=== PATIENT | male | born 1945 | race Caucasian/White ===

== ENCOUNTER → 2017-11-15 04:21 | Outpatient (REF) | payer MEDICARE, MEDICAID, SELFPAY | LOC: LAB 04:21 | PROVIDERS: PCP Internal Medicine; Visit Provider Internal Medicine | DX: R05 Cough (principal); J02.9 Acute pharyngitis, unspecified | CPT/HCPCS: 87070; 87205 ==

== ENCOUNTER → 2017-11-18 07:49 | Outpatient (REF) | payer MEDICARE, MEDICAID, SELFPAY ==
[2017-11-18 08:54] LABS: Hematocrit 39.7 % (41-53); Hemoglobin 13.2 g/dL (13.5-17.5); Mean Corpuscular HGB Conc 33.2 % (30-36); Mean Corpuscular Hemoglobin 30.3 PG (26-34); Mean Corpuscular Volume 91.1 fL (80-100); Platelet Count 640 X10^3/uL (150-400); Red Blood Cell Count 4.35 X10^6/uL (4.5-5.9); Red Cell Distribution Width 14.6 % (11.6-14.8); White Blood Cell Count 12.4 X10^3/uL (4.5-11.0)
[2017-11-18 08:55] LABS: Add Manual Diff / Slide Review YES
[2017-11-18 08:58] LABS: Hemoglobin A1C% w Est Avg Glu 9.4 % (4.0-6.0)
[2017-11-18 09:03] LABS: Alanine Aminotransferase 28 IU/L (21-72); Albumin 3.4 g/dL (3.5-5.0); Alkaline Phosphatase 130 U/L (38-126); Aspartate Aminotransferase 19 IU/L (17-59); BUN Creatinine Ratio 22.2 (6-22); Bilirubin Total 0.4 mg/dL (0.2-1.3); Blood Urea Nitrogen 20 mg/dL (9-20); Carbon Dioxide 31 mmol/L (22-32); Chloride 101 mmol/L (98-107); Estimated Glomerular Filt Rate > 60.0 mL/min (>60); Globulin 3.4 g/dL (1.7-4.1); Glucose 169 mg/dL (80-110); HEMOLYSIS < 15 (0-50); Potassium 3.9 mmol/L (3.4-5.1); Sodium 141 mmol/L (137-145); Total Protein 6.8 g/dL (6.3-8.2)
[2017-11-18 09:16] LABS: Neutrophils Absolute Manual 2232 /uL (3000-5900); Total Cells Counted 100
[2017-11-18 09:19] LABS: Poikilocytosis 1+
== END ==
LOC: LAB 07:49
PROVIDERS: PCP Internal Medicine; Visit Provider Internal Medicine
DX: E11.9 Type 2 diabetes mellitus without complications (principal)
CPT/HCPCS: 36415; 80053; 83036; 85025

== ENCOUNTER → 2018-03-26 07:27 | Outpatient (REF) | payer MEDICARE, MEDICAID, SELFPAY ==
[2018-03-26 08:53] LABS: Basophils Percent Auto 1.7 % (0-2); Eosinophils Percent Auto 6.4 % (2-4); Hematocrit 40.6 % (41-53); Hemoglobin 13.2 g/dL (13.5-17.5); Lymphocytes Percent Auto 26.4 % (25-40); Mean Corpuscular HGB Conc 32.6 % (30-36); Mean Corpuscular Hemoglobin 29.6 PG (26-34); Mean Corpuscular Volume 90.9 fL (80-100); Monocytes Percent Auto 12.1 % (3-14); Neutrophils Absolute Auto 8800 /uL (3000-5900); Neutrophils Percent Auto 53.4 % (50-75); Platelet Count 504 X10^3/uL (150-400); Red Blood Cell Count 4.47 X10^6/uL (4.5-5.9); Red Cell Distribution Width 14.3 % (11.6-14.8); White Blood Cell Count 16.5 X10^3/uL (4.5-11.0)
[2018-03-26 08:54] LABS: Hemoglobin A1C% w Est Avg Glu 8.2 % (4.0-6.0)
[2018-03-26 09:04] LABS: Add Manual Diff / Slide Review SLIDE REVIEW
[2018-03-26 11:54] LABS: RBC Morphology Normal Morphology
[2018-03-26 12:05] LABS: Alanine Aminotransferase 29 IU/L (21-72); Albumin 3.6 g/dL (3.5-5.0); Albumin Globulin Ratio 1.2 (1.0-2.8); Alkaline Phosphatase 87 U/L (38-126); Aspartate Aminotransferase 20 IU/L (17-59); Bilirubin Total 0.2 mg/dL (0.2-1.3); Blood Urea Nitrogen 32 mg/dL (9-20); Calcium 9.6 mg/dL (8.4-10.2); Carbon Dioxide 29 mmol/L (22-32); Chloride 102 mmol/L (98-107); Cholesterol 151 mg/dL (140-199); Estimated Glomerular Filt Rate > 60.0 mL/min (>60); Glucose 206 mg/dL (80-110); HDL Cholesterol 28 mg/dL (40-60); HEMOLYSIS < 15 (0-50); LDL Cholesterol Calculated 92 mg/dL (<100); Sodium 143 mmol/L (137-145); Total Protein 6.6 g/dL (6.3-8.2); Triglycerides 154 mg/dL (35-150)
== END ==
LOC: LAB 07:27
PROVIDERS: PCP Internal Medicine; Visit Provider Nurse Practitioner Family
DX: E11.9 Type 2 diabetes mellitus without complications (principal); I50.9 Heart failure, unspecified; E78.5 Hyperlipidemia, unspecified
CPT/HCPCS: 36415; 80053; 80061; 83036; 85025

== ENCOUNTER → 2018-04-02 07:22 | Outpatient (REF) | payer MEDICARE, MEDICAID, SELFPAY ==
[2018-04-02 08:13] LABS: Add Manual Diff / Slide Review NO; Basophils Percent Auto 1.6 % (0-2); Eosinophils Percent Auto 9.2 % (2-4); Hematocrit 37.6 % (41-53); Hemoglobin 12.6 g/dL (13.5-17.5); Lymphocytes Percent Auto 29.5 % (25-40); Mean Corpuscular HGB Conc 33.5 % (30-36); Mean Corpuscular Hemoglobin 30.2 PG (26-34); Mean Corpuscular Volume 90.1 fL (80-100); Monocytes Percent Auto 12.5 % (3-14); Neutrophils Absolute Auto 7500 /uL (3000-5900); Neutrophils Percent Auto 47.2 % (50-75); Platelet Count 442 X10^3/uL (150-400); Red Blood Cell Count 4.18 X10^6/uL (4.5-5.9); Red Cell Distribution Width 14.6 % (11.6-14.8)
== END ==
LOC: LAB 07:22
PROVIDERS: PCP Internal Medicine; Visit Provider Internal Medicine
DX: L03.90 Cellulitis, unspecified (principal)
CPT/HCPCS: 36415; 85025

== ENCOUNTER 2018-06-17 20:40 | Emergency (ER) | payer MEDICARE, MEDICAID, SELFPAY ==
[2018-06-17 20:45] VITALS: BP 109/69; PULSE 120; RESP 18; O2SAT 93
[2018-06-17 21:00] VITALS: PULSE 120; RESP 18; O2SAT 93
--- NOTE | 2018-06-17 21:22 | ED.DENTAL ---
HPI - Dental/Oral General Chief complaint: Dental/Oral Stated complaint: Uncontrolled bleeding s/p tooth extraction Time Seen by Provider: 06/17/18 20:41 Source: patient and EMS Mode of arrival: EMS Limitations: no limitations History of Present Illness HPI Narrative: 72-year-old male with history of prior stroke, diabetes, hypertension presents from a local halfway facility with uncontrolled bleeding after a dental procedure today. The patient takes Plavix and aspirin and had a dental extraction today. Over the course of the day he has had persistent oozing bleeding from multiple occasions in his mouth. Denies any pain and has no dizziness, weakness or lightheadedness. He has had no vomiting fever or chills. He denies chest pain or shortness of breath. Onset (ago): hour(s) Duration: constant Severity: moderate Exacerbating factors: nothing Treatment prior to arrival: none Related Data Home Medications Medication Instructions Recorded Confirmed Lactobacillus acidophilus #0 05/04/16 aspirin 81 mg PO QDAY #0 05/04/16 bisacodyl [Correctol] 5 mg PO #0 05/04/16 bumetanide 1.5 mg #0 05/04/16 clopidogrel 75 mg PO QDAY #0 05/04/16 hydrocodone-acetaminophen #0 05/04/16 insulin aspart U-100 [Novolog 100 u #0 05/04/16 PenFill U-100 Insulin] insulin detemir U-100 [Levemir 93 unit #0 05/04/16 U-100 Insulin] loratadine [Claritin] 5 mg PO #0 05/04/16 losartan [Cozaar] #0 05/04/16 magnesium hydroxide [Milk Of 30 ml PO #0 05/04/16 Magnesia Concentrated] polyethylene glycol 3350 [Miralax] #0 05/04/16 polyvinyl alcohol-povidone #0 05/04/16 [Artificial Tears(pvalch-povid)] potassium chloride [Klor-Con 8] 10 #0 05/04/16 Allergies Allergy/AdvReac Type Severity Reaction Status Date / Time ciprofloxacin [From CIPRO] Allergy Unknown Unverified 08/27/17 12:29 doxylamine [DOXYLAMINE] Allergy Unknown Unverified 08/27/17 12:29 Sulfa (Sulfonamide Allergy Unknown Unverified 08/27/17 12:29 Antibiotics) [SULFA (SULFONAMIDE ANTIBIOTICS)] vancomycin [From VANCOCIN] Allergy Unknown Unverified 08/27/17 12:29 Review of Systems Constitutional Denies chills, Denies fever(s), Denies lethargy and Denies weakness Eyes Denies change in vision, Denies eye discharge, Denies irritation and Denies loss of vision ENT Ears, Nose, Mouth, and Throat: Denies change in voice, Denies neck pain and Denies sore throat Comments: The more we Cardiovascular Denies chest pain, Denies irregular heart rhythm, Denies lightheadedness, Denies palpitations, Denies dyspnea, Denies dyspnea on exertion and Denies orthopnea Respiratory Denies cough, Denies dyspnea, Denies dyspnea on exertion and Denies wheezing Gastrointestinal Gastrointestinal: Denies abdominal pain, Denies change in bowel habits, Denies diarrhea, Denies nausea and Denies vomiting Genitourinary Denies hematuria, Denies flank pain, Denies urinary incontinence and Denies urinary urgency Musculoskeletal Denies neck pain Integumentary/Breasts Denies pruritus, Denies erythema, Denies rash and Denies wounds Neurologic Denies confusion, Denies loss of vision and Denies weakness Psychiatric Denies anxiety, Denies confusion, Denies depression, Denies homicidal ideation and Denies suicidal ideation Endocrine Denies palpitations Hematologic/Lymphatic Reports easy bleeding and Denies easy bruising Allergic/Immunologic Denies wheezing Exam Narrative Exam Narrative: GEN: AOx3 and in mild distress DENTAL: multiple recent extractions. Fresh clots at multiple locations on R side of mouth. Active bleeding at two sites, one at #28 and #4. EYES: Pupils are equal, round, and reactive to light and accommodation. Extraoccular muscles are intact bilaterally. There is no subconjunctival hemorrhage or exudate. CHEST: Lungs are clear to auscultation bilaterally and free of wheezes, rales, or rhonchi. Heart rate is regular rhythm, there are no murmurs, clicks, rubs, or gallops. There is no chest wall tenderness. ABD: Abdomen is soft and nontender. There is no guarding or rebound. Bowel sounds are normal in all 4 quadrants. There is no mass or organomegaly. EXT: Full painless ROM of all extremities with no loss of sensation or strength. SKIN: Warm, pink, and dry. No erythema or rash Initial Vital Signs Initial Vital Signs: Vital Signs Pulse Rate 120 H 06/17/18 20:45 Respiratory Rate 18 06/17/18 20:45 Blood Pressure 109/69 06/17/18 20:45 Pulse Oximetry 93 06/17/18 20:45 [place] [facility] [place] Procedure: Bleeding Control Side (if applicable): right Location: oral Time out performed: Yes Technique/Description of procedure performed: Both bleeding sites, 20. 8 and number for anesthetized with lidocaine with epi, 3 males per site. This is followed by injections of DEXA. The lower bleeding site was controlled with 1 loose suture and surgeon foam as well as Surgicel. the suture is 1 simple interrupted 5 0 Vicryl. minimal suctioning with Grande tip performed. Patient tolerated procedure quite well Patient tolerated procedure: Well Complications: none Course Reevaluation(s) Reevaluation #1: patient observed for over 1 hr after procedure and no persistent bleeding is noted Vital Signs - 8 hr 06/17/18 20:45 06/17/18 21:00 06/17/18 21:50 Pulse Rate 120 H 120 H 108 H Respiratory Rate 18 18 18 Blood Pressure [Left Arm] 109/69 111/70 Pulse Oximetry 93 93 95 Discharge Plan Departure Patient Disposition: Home Clinical Impression: Surgical wound hemorrhage after dental procedure Instructions: DI for Post-Surgical Bleeding Activity Restrictions/Additional Instructions: *You have been diagnosed with [ postsurgical dental bleeding ] *What to do: * continue to take medications as directed *Follow up with your dentist/oral surgeon as soon as possible. call for an appointment. Let them know you were seen in the Emergency Department and that we ask that you be seen in follow up *Return to ER if you should have any new, worsening or concerning symptoms Prescriptions: No Action insulin aspart U-100 [Novolog PenFill U-100 Insulin] 100 UNIT/1 ML cartridge 100 u Qty: 0 RF: 0 loratadine [Claritin] 5 MG/5 ML solution 5 mg PO Qty: 0 RF: 0 aspirin 81 MG tablet,delayed release (DR/EC) 81 mg PO QDAY Qty: 0 RF: 0 polyethylene glycol 3350 [Miralax] 119 GM powder Qty: 0 RF: 0 losartan [Cozaar] 100 MG tablet Qty: 0 RF: 0 insulin detemir U-100 [Levemir U-100 Insulin] 100 UNIT/1 ML solution 93 unit Qty: 0 RF: 0 clopidogrel 75 MG tablet 75 mg PO QDAY Qty: 0 RF: 0 potassium chloride [Klor-Con 8] 8 MEQ tablet extended release 10 Qty: 0 RF: 0 bisacodyl [Correctol] 5 MG tablet 5 mg PO Qty: 0 RF: 0 magnesium hydroxide [Milk Of Magnesia Concentrated] 2,400 MG/10 ML suspension 30 ml PO Qty: 0 RF: 0 hydrocodone-acetaminophen 5 MG/325 MG tablet Qty: 0 RF: 0 Lactobacillus acidophilus 1 EACH capsule Qty: 0 RF: 0 polyvinyl alcohol-povidone [Artificial Tears(pvalch-povid)] 15 ML drops Qty: 0 RF: 0 bumetanide 1 MG tablet 1.5 mg Qty: 0 RF: 0
[2018-06-17 21:50] VITALS: BP 111/70; PULSE 108; RESP 18; O2SAT 95
--- NOTE | 2018-06-17 22:48 | PC.NURSE ---
No bleeding noted in moth now.
== END 2018-06-17 22:48 | disposition home or self-care (01) ==
PROVIDERS: Emergency Provider Emergency Medicine; Family Provider Internal Medicine; PCP Internal Medicine
DX: K91.840 Postprocedural hemorrhage of a digestive system organ or structure following a digestive system procedure (principal)
CPT/HCPCS: 99282

== ENCOUNTER → 2018-06-22 14:04 | Outpatient (REF) | payer MEDICARE, MEDICAID, SELFPAY ==
[2018-06-22 14:15] LABS: Hematocrit 37.1 % (41-53); Hemoglobin 12.1 g/dL (13.5-17.5); Mean Corpuscular HGB Conc 32.6 % (30-36); Mean Corpuscular Hemoglobin 29.9 PG (26-34); Mean Corpuscular Volume 91.5 fL (80-100); Platelet Count 449 X10^3/uL (150-400); Red Blood Cell Count 4.06 X10^6/uL (4.5-5.9); Red Cell Distribution Width 14.6 % (11.6-14.8); White Blood Cell Count 11.5 X10^3/uL (4.5-11.0)
[2018-06-22 14:16] LABS: Ammonia (NH3) < 9.0 umol/L (9-30)
[2018-06-22 14:17] LABS: Add Manual Diff / Slide Review YES
[2018-06-22 14:18] LABS: Alanine Aminotransferase 39 IU/L (21-72); Albumin 3.5 g/dL (3.5-5.0); Albumin Globulin Ratio 1.3 (1.0-2.8); Alkaline Phosphatase 82 U/L (38-126); Aspartate Aminotransferase 31 IU/L (17-59); Bilirubin Total 0.2 mg/dL (0.2-1.3); Blood Urea Nitrogen 36 mg/dL (9-20); Calcium 9.4 mg/dL (8.4-10.2); Carbon Dioxide 26 mmol/L (22-32); Chloride 97 mmol/L (98-107); Estimated Glomerular Filt Rate 59.2 mL/min (>60); Globulin 2.7 g/dL (1.7-4.1); Glucose 258 mg/dL (80-110); HEMOLYSIS < 15 (0-50); Potassium 5.2 mmol/L (3.4-5.1); Sodium 136 mmol/L (137-145); Total Protein 6.2 g/dL (6.3-8.2)
[2018-06-22 15:13] LABS: Neutrophils Absolute Manual 4255 /uL (3000-5900); Total Cells Counted 100
[2018-06-22 15:16] LABS: Anisocytosis 1+; Poikilocytosis 1+
== END ==
LOC: LAB 14:04
PROVIDERS: Family Provider Internal Medicine; PCP Internal Medicine; Visit Provider Registered Nurse
DX: R03.0 Elevated blood-pressure reading, without diagnosis of hypertension (principal); E11.9 Type 2 diabetes mellitus without complications; R40.4 Transient alteration of awareness
CPT/HCPCS: 80053; 82140; 85025

== ENCOUNTER → 2018-06-23 16:56 | Outpatient (REF) | payer MEDICARE, MEDICAID, SELFPAY ==
[2018-06-23 17:42] LABS: B Type Natriuretic Peptide < 100 (<100)
== END ==
LOC: LAB 16:56
PROVIDERS: Family Provider Internal Medicine; PCP Internal Medicine; Visit Provider Registered Nurse
DX: I50.20 Unspecified systolic (congestive) heart failure (principal)
CPT/HCPCS: 83880

== ENCOUNTER → 2018-06-25 07:06 | Outpatient (REF) | payer MEDICARE, MEDICAID, SELFPAY ==
[2018-06-25 08:41] LABS: Hemoglobin A1C% w Est Avg Glu 8.2 % (4.0-6.0)
== END ==
LOC: LAB 07:06
PROVIDERS: Family Provider Internal Medicine; PCP Internal Medicine; Visit Provider Internal Medicine
DX: E11.9 Type 2 diabetes mellitus without complications (principal)
CPT/HCPCS: 36415; 83036

== ENCOUNTER → 2018-06-30 10:29 | Outpatient (REF) | payer MEDICARE, MEDICAID, SELFPAY ==
[2018-06-30 11:35] LABS: Blood Urea Nitrogen 20 mg/dL (9-20); Calcium 9.1 mg/dL (8.4-10.2); Carbon Dioxide 28 mmol/L (22-32); Chloride 97 mmol/L (98-107); Estimated Glomerular Filt Rate > 60.0 mL/min (>60); Glucose 246 mg/dL (80-110); HEMOLYSIS < 15 (0-50); Potassium 4.1 mmol/L (3.4-5.1); Sodium 136 mmol/L (137-145)
== END ==
LOC: LAB 10:29
PROVIDERS: Family Provider Internal Medicine; PCP Internal Medicine; Visit Provider Nurse Practitioner Family
DX: E87.5 Hyperkalemia (principal)
CPT/HCPCS: 36415; 80048

== ENCOUNTER → 2018-07-23 07:52 | Outpatient (REF) | payer MEDICARE, MEDICAID, SELFPAY ==
[2018-07-23 08:34] LABS: Basophils Absolute Auto 200 /uL (0-100); Basophils Percent Auto 1.6 % (0-2); Eosinophils Absolute Auto 1100 /uL (0-450); Eosinophils Percent Auto 8.5 % (2-4); Hematocrit 39.5 % (41-53); Hemoglobin 12.7 g/dL (13.5-17.5); Lymphocytes Absolute Auto 5300 /uL (1100-4500); Lymphocytes Percent Auto 39.1 % (25-40); Mean Corpuscular Volume 90.5 fL (80-100); Monocytes Absolute Auto 1500 /uL (0-900); Monocytes Percent Auto 11.1 % (3-14); Neutrophils Absolute Auto 5400 /uL (1500-7000); Neutrophils Percent Auto 39.7 % (50-75); Platelet Count 532 X10^3/uL (150-400); Red Blood Cell Count 4.37 X10^6/uL (4.5-5.9); Red Cell Distribution Width 14.1 % (11.6-14.8); White Blood Cell Count 13.5 X10^3/uL (4.5-11.0)
[2018-07-23 08:45] LABS: Add Manual Diff / Slide Review SLIDE REVIEW
[2018-07-23 08:51] LABS: BUN Creatinine Ratio 23.8 (6-22); Blood Urea Nitrogen 19 mg/dL (9-20); Calcium 9.6 mg/dL (8.4-10.2); Carbon Dioxide 31 mmol/L (22-32); Chloride 98 mmol/L (98-107); Estimated Glomerular Filt Rate > 60.0 mL/min (>60); Glucose 132 mg/dL (80-110); HEMOLYSIS < 15 (0-50); Potassium 3.5 mmol/L (3.4-5.1); Sodium 141 mmol/L (137-145)
[2018-07-23 09:36] LABS: Platelet Estimate Increased on smear
== END ==
LOC: LAB 07:52
PROVIDERS: Family Provider Internal Medicine; PCP Internal Medicine; Visit Provider Internal Medicine
DX: N17.9 Acute kidney failure, unspecified (principal); D72.829 Elevated white blood cell count, unspecified
CPT/HCPCS: 36415; 80048; 85025

== ENCOUNTER → 2018-07-30 07:13 | Outpatient (REF) | payer MEDICARE, MEDICAID, SELFPAY ==
[2018-07-30 08:05] LABS: Add Manual Diff / Slide Review NO; Basophils Absolute Auto 300 /uL (0-100); Basophils Percent Auto 2.1 % (0-2); Eosinophils Absolute Auto 1100 /uL (0-450); Eosinophils Percent Auto 7.8 % (2-4); Lymphocytes Absolute Auto 4900 /uL (1100-4500); Lymphocytes Percent Auto 34.9 % (25-40); Mean Corpuscular HGB Conc 32.4 % (30-36); Mean Corpuscular Hemoglobin 28.4 PG (26-34); Mean Corpuscular Volume 87.8 fL (80-100); Monocytes Absolute Auto 1500 /uL (0-900); Monocytes Percent Auto 10.8 % (3-14); Neutrophils Absolute Auto 6300 /uL (1500-7000); Neutrophils Percent Auto 44.4 % (50-75); Red Blood Cell Count 4.21 X10^6/uL (4.5-5.9); Red Cell Distribution Width 14.5 % (11.6-14.8); White Blood Cell Count 14.1 X10^3/uL (4.5-11.0)
[2018-07-30 08:38] LABS: Platelet Count 620 X10^3/uL (150-400)
[2018-07-30 08:41] LABS: Blood Urea Nitrogen 20 mg/dL (9-20); Calcium 9.1 mg/dL (8.4-10.2); Carbon Dioxide 31 mmol/L (22-32); Chloride 102 mmol/L (98-107); Estimated Glomerular Filt Rate > 60.0 mL/min (>60); Glucose 93 mg/dL (80-110); HEMOLYSIS 31 (0-50); Potassium 3.7 mmol/L (3.4-5.1); Sodium 142 mmol/L (137-145)
== END ==
LOC: LAB 07:13
PROVIDERS: Family Provider Internal Medicine; PCP Internal Medicine; Visit Provider Internal Medicine
DX: E11.9 Type 2 diabetes mellitus without complications (principal); D72.829 Elevated white blood cell count, unspecified; E87.5 Hyperkalemia
CPT/HCPCS: 36415; 80048; 85025

== ENCOUNTER → 2018-09-01 08:29 | Outpatient (REF) | payer MEDICARE, MEDICAID, SELFPAY ==
[2018-09-01 09:09] LABS: Add Manual Diff / Slide Review NO; Basophils Absolute Auto 200 /uL (0-100); Basophils Percent Auto 1.2 % (0-2); Eosinophils Absolute Auto 1200 /uL (0-450); Eosinophils Percent Auto 7.6 % (2-4); Hemoglobin 12.4 g/dL (13.5-17.5); Lymphocytes Absolute Auto 4200 /uL (1100-4500); Lymphocytes Percent Auto 26.4 % (25-40); Mean Corpuscular HGB Conc 31.8 % (30-36); Mean Corpuscular Hemoglobin 27.3 PG (26-34); Mean Corpuscular Volume 85.8 fL (80-100); Monocytes Absolute Auto 1700 /uL (0-900); Monocytes Percent Auto 10.6 % (3-14); Neutrophils Absolute Auto 8700 /uL (1500-7000); Neutrophils Percent Auto 54.2 % (50-75); Platelet Count 610 X10^3/uL (150-400); Red Blood Cell Count 4.54 X10^6/uL (4.5-5.9); Red Cell Distribution Width 14.9 % (11.6-14.8)
[2018-09-01 09:10] LABS: Blood Urea Nitrogen 18 mg/dL (9-20); Calcium 9.8 mg/dL (8.4-10.2); Carbon Dioxide 30 mmol/L (22-32); Chloride 100 mmol/L (98-107); Estimated Glomerular Filt Rate > 60.0 mL/min (>60); Glucose 186 mg/dL (80-110); HEMOLYSIS < 15 (0-50); Potassium 3.3 mmol/L (3.4-5.1); Sodium 140 mmol/L (137-145)
== END ==
LOC: LAB 08:29
PROVIDERS: Nurse Practitioner Family; Family Provider Internal Medicine; PCP Internal Medicine; Visit Provider Registered Nurse
DX: E11.9 Type 2 diabetes mellitus without complications (principal); D72.829 Elevated white blood cell count, unspecified
CPT/HCPCS: 36415; 80048; 85025

== ENCOUNTER → 2018-09-04 16:53 | Outpatient (REF) | payer MEDICARE, MEDICAID, SELFPAY ==
[2018-09-04 17:00] LABS: HEMOLYSIS < 15 (0-50); Potassium 3.2 mmol/L (3.4-5.1)
== END ==
LOC: LAB 16:53
PROVIDERS: Family Provider Internal Medicine; PCP Internal Medicine; Visit Provider Registered Nurse
DX: E87.6 Hypokalemia (principal)
CPT/HCPCS: 84132

== ENCOUNTER → 2018-09-24 06:58 | Outpatient (ROUT) | payer MEDICARE, MEDICAID, SELFPAY ==
[2018-09-24 08:13] LABS: HEMOLYSIS < 15 (0-50); Potassium 3.5 mmol/L (3.4-5.1)
== END ==
PROVIDERS: Family Provider Internal Medicine; PCP Internal Medicine; Visit Provider Nurse Practitioner Family
DX: E87.6 Hypokalemia (principal)
CPT/HCPCS: 36415; 84132

== ENCOUNTER → 2018-10-01 07:10 | Outpatient (ROUT) | payer MEDICARE, MEDICAID, SELFPAY ==
[2018-10-01 08:21] LABS: Add Manual Diff / Slide Review NO; BUN Creatinine Ratio 21.1 (6-22); Basophils Absolute Auto 300 /uL (0-100); Basophils Percent Auto 1.7 % (0-2); Blood Urea Nitrogen 19 mg/dL (9-20); Calcium 9.7 mg/dL (8.4-10.2); Carbon Dioxide 31 mmol/L (22-32); Chloride 98 mmol/L (98-107); Eosinophils Absolute Auto 1000 /uL (0-450); Eosinophils Percent Auto 6.5 % (2-4); Estimated Glomerular Filt Rate > 60.0 mL/min (>60); Glucose 259 mg/dL (80-110); HEMOLYSIS < 15 (0-50); Hematocrit 38.4 % (41-53); Hemoglobin 12.4 g/dL (13.5-17.5); Lymphocytes Absolute Auto 4100 /uL (1100-4500); Lymphocytes Percent Auto 28.3 % (25-40); Mean Corpuscular HGB Conc 32.2 % (30-36); Mean Corpuscular Hemoglobin 26.8 PG (26-34); Mean Corpuscular Volume 83.2 fL (80-100); Monocytes Absolute Auto 1400 /uL (0-900); Monocytes Percent Auto 9.8 % (3-14); Neutrophils Absolute Auto 7900 /uL (1500-7000); Neutrophils Percent Auto 53.7 % (50-75); Platelet Count 579 X10^3/uL (150-400); Potassium 3.3 mmol/L (3.4-5.1); Red Blood Cell Count 4.62 X10^6/uL (4.5-5.9); Red Cell Distribution Width 16.1 % (11.6-14.8); Sodium 140 mmol/L (137-145); White Blood Cell Count 14.6 X10^3/uL (4.5-11.0)
== END ==
PROVIDERS: Family Provider Internal Medicine; PCP Internal Medicine; Visit Provider Nurse Practitioner Family
DX: D72.829 Elevated white blood cell count, unspecified (principal); E11.9 Type 2 diabetes mellitus without complications
CPT/HCPCS: 36415; 80048; 85025

== ENCOUNTER → 2018-10-08 07:20 | Outpatient (ROUT) | payer MEDICARE, MEDICAID, SELFPAY ==
[2018-10-08 09:07] LABS: HEMOLYSIS < 15 (0-50); Potassium 3.8 mmol/L (3.4-5.1)
== END ==
PROVIDERS: Family Provider Internal Medicine; PCP Internal Medicine; Visit Provider Nurse Practitioner Family
DX: E87.6 Hypokalemia (principal)
CPT/HCPCS: 36415; 84132

== ENCOUNTER → 2018-11-03 10:30 | Outpatient (CLI) | payer MEDICARE, MEDICAID, SELFPAY ==
[2018-11-03 11:46] LABS: Add Manual Diff / Slide Review NO; Basophils Absolute Auto 200 /uL (0-100); Basophils Percent Auto 1.5 % (0-2); Eosinophils Absolute Auto 800 /uL (0-450); Eosinophils Percent Auto 5.6 % (2-4); Hematocrit 41.5 % (41-53); Hemoglobin 13.4 g/dL (13.5-17.5); Lymphocytes Absolute Auto 4500 /uL (1100-4500); Lymphocytes Percent Auto 31.8 % (25-40); Mean Corpuscular HGB Conc 32.1 % (30-36); Mean Corpuscular Hemoglobin 26.8 PG (26-34); Mean Corpuscular Volume 83.4 fL (80-100); Monocytes Absolute Auto 1300 /uL (0-900); Monocytes Percent Auto 9.5 % (3-14); Neutrophils Absolute Auto 7200 /uL (1500-7000); Neutrophils Percent Auto 51.6 % (50-75); Platelet Count 587 X10^3/uL (150-400); Red Blood Cell Count 4.98 X10^6/uL (4.5-5.9)
[2018-11-07 21:23] LABS: Specimen Source WHOLE BLOOD EDTA
[2018-11-09 14:44] LABS: CALR Exon 9 Mutation NOT DETECTED (NOT DETECTED); CSF3R Exon 14/17 Mutation NOT DETECTED (NOT DETECTED); Clinical Indication WHOLE BLOOD EDTA; JAK2 Exon 12 Mutation NOT DETECTED (NOT DETECTED); JAK2 V617F NOT DETECTED (NOT DETECTED); MPL Exon 10 Mutation NOT DETECTED (NOT DETECTED)
== END ==
PROVIDERS: PCP Internal Medicine; Visit Provider Internal Medicine
DX: I69.920 Aphasia following unspecified cerebrovascular disease (principal); I87.309 Chronic venous hypertension (idiopathic) without complications of unspecified lower extremity; I11.0 Hypertensive heart disease with heart failure; I50.9 Heart failure, unspecified; E78.5 Hyperlipidemia, unspecified; E11.40 Type 2 diabetes mellitus with diabetic neuropathy, unspecified; I87.2 Venous insufficiency (chronic) (peripheral); I25.10 Atherosclerotic heart disease of native coronary artery without angina pectoris; K21.9 Gastro-esophageal reflux disease without esophagitis; E66.01 Morbid (severe) obesity due to excess calories; R60.9 Edema, unspecified; D72.829 Elevated white blood cell count, unspecified; I69.959 Hemiplegia and hemiparesis following unspecified cerebrovascular disease affecting unspecified side
CPT/HCPCS: 36415; 81207; 81270; 85025

== ENCOUNTER → 2018-11-17 14:20 | Oncology outpatient (ONC) | payer MEDICARE, MEDICAID, SELFPAY ==
[2018-10-26 13:38] VITALS: BP 151/80; PULSE 70; RESP 18; TEMP 36.3; O2SAT 96
--- NOTE | 2018-10-26 14:10 | P.CONONC_ITS ---
History of Present Illness - Data of Consult Consult date: 10/26/18 Primary Care Provider: Flaquita Orantes MD - Consult Narrative Narrative: Diagnosis: Abnormal CBC History of present illness: Matt Guerra is a 73 year old male who is referred for further evaluation of an abnormal CBC. The patient reports that he has been feeling quite well. He has no specific complaints. He has not had any recent infections. He denies any fevers chills or sweats. He has not noted any adenopathy. He is not having any abdominal discomfort. His weight has been stable or slightly decreased although he is eating well. On October 01, his white count was 14.6 hemoglobin 12.4 crit 38 platelets [id number]. Review of old CBCs shows that he has run a consistently high white count dating back at least as far as 2015. In November 2015, his white count been 13.8. His platelet count 3 100 to [id number] in 2016. Differential shows no elevation consistently in any one predominant cell type. He has not been aware of any previous abnormal CBCs. He denies any unusual bleeding or bruising. He has never required any transfusion. He is other without complaint. His past medical history is notable for diabetes and hypertension. He has had a prior heart attack. 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 Social history: He is . He is a former smoker. He has occasional alcohol use. 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 His family history: His father had asbestosis and prostate cancer. His mother had colon cancer. There is no other family history of malignancy. CC: Arash Chio MD Home Medications and Allergies Home Medications Medication Instructions Recorded Confirmed Type Artificial Tears(pvalch-povid) 1 Q6H #0 05/04/16 History Correctol 5 mg PO DAILY #0 05/04/16 10/26/18 History Lactobacillus acidophilus #0 05/04/16 History Milk Of Magnesia Concentrated 30 ml PO DAILY #0 05/04/16 10/26/18 History Novolog PenFill U-100 Insulin #0 05/04/16 History aspirin 81 mg PO QDAY #0 05/04/16 10/26/18 History bumetanide 1.5 mg BID #0 05/04/16 10/26/18 History clopidogrel 75 mg PO QDAY #0 05/04/16 10/26/18 History polyethylene glycol 3350 [Miralax] 17 #0 05/04/16 History potassium chloride [Klor-Con 8] 60 meq DAILY #0 05/04/16 10/26/18 History docusate sodium 100 mg PO DAILY 10/26/18 10/26/18 History insulin NPH isoph U-100 human 30 unit BID 10/26/18 10/26/18 History [Novolin N NPH U-100 Insulin] metformin 500 mg PO BID 10/26/18 10/26/18 History oxycodone 5 mg Q6H PRN 10/26/18 10/26/18 History Allergies Allergy/AdvReac Type Severity Reaction Status Date / Time ciprofloxacin [From CIPRO] Allergy Unknown Unverified 08/27/17 12:29 doxylamine [DOXYLAMINE] Allergy Unknown Unverified 08/27/17 12:29 Sulfa (Sulfonamide Allergy Unknown Unverified 08/27/17 12:29 Antibiotics) [SULFA (SULFONAMIDE ANTIBIOTICS)] vancomycin [From VANCOCIN] Allergy Unknown Unverified 08/27/17 12:29 Review of Systems Constitutional: weight loss Cardiovascular: no chest pain, no dyspnea on exertion Respiratory: no shortness of breath Gastrointestinal: constipation, no abdominal pain, no diarrhea Musculoskeletal: weakness, atrophy Exam Vital signs: Vital Signs Temp Pulse Resp BP Pulse Ox 10/26/18 13:38 97.4 F L 70 18 151/80 H 96 Intake and Output 10/25/18 10/26/18 10/26/18 23:59 07:59 15:59 Other: Weight 100 kg Patient Weight 10/26/18 23:59 Weight 100 kg - Constitutional positive no acute distress, positive obese Comments: He is in a wheelchair chronically ill-appearing. He has decreased mobility on the right side and asymmetry of the face. - Routine HEENT Exam Head: Present: normocephalic, atraumatic Eye: Present: EOMI, PERRL. Absent: conjunctival icterus, scleral injection ENT: Present: mucous membranes moist, oropharynx clear - Routine Neck Exam Present: supple. Absent: lymphadenopathy, thyromegaly - Routine Respiratory Exam Present: Clear to auscultation bilaterally. Absent: rales, wheezes - Routine Cardiovascular Exam Present: RRR, S1, S2. Absent: murmur - Routine Abdominal Exam Present: soft, normoactive bowel sounds. Absent: tenderness, organomegaly - Routine Extremities Exam Comments: He has 2+ bilateral lower extremity edema. - Routine Skin Exam Present: intact. Absent: petechiae, rash Comments: He does have some ecchymoses at the sites of insulin injection. - Routine Neurological Exam Present: alert, oriented X3, motor deficit - Routine Psychiatric Exam Present: normal affect, normal thought process Assessment and Plan (1) Leukocytosis Current visit: Yes Status: Acute 73-year-old man with leukocytosis and thrombocytosis that is been present for at least 3 years. He is completely asymptomatic. It is possible that this may represent myeloproliferative disorder such as CML or essential thrombocytosis. We will plan on checking PCR for bcr/ABL and also for a MISAEL 2 mutation. If either of those were found, he may need some specific therapy. 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 A if he does not have any evidence of a myeloproliferative disorder, I think he could just be followed expectantly. He will return to clinic in about 3 weeks or so for follow-up.
--- NOTE | 2018-10-26 14:34 | ONC.SCHED ---
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
[2018-11-17 15:00] VITALS: BP 143/94; PULSE 88; RESP 16; TEMP 36.8; O2SAT 94
--- NOTE | 2018-11-17 15:12 | ONC.PN ---
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 He was seen previously with modestly elevated white count and platelet count have been chronic. He was not having any symptoms related to this. He has not had any fevers chills or night sweats. No abdominal complaints. No unusual bleeding or bruising. He does have a history of a prior splenectomy. His past medical history is notable for diabetes and hypertension. He has had a prior heart attack. 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 Home Medications and Allergies Home Medications Medication Instructions Recorded Confirmed Type Artificial Tears(pvalch-povid) 1 Q6H #0 05/04/16 History Correctol 5 mg PO DAILY #0 05/04/16 10/26/18 History Lactobacillus acidophilus #0 05/04/16 History Milk Of Magnesia Concentrated 30 ml PO DAILY #0 05/04/16 10/26/18 History Novolog PenFill U-100 Insulin #0 05/04/16 History aspirin 81 mg PO QDAY #0 05/04/16 10/26/18 History bumetanide 1.5 mg BID #0 05/04/16 10/26/18 History clopidogrel 75 mg PO QDAY #0 05/04/16 10/26/18 History polyethylene glycol 3350 [Miralax] 17 #0 05/04/16 History potassium chloride [Klor-Con 8] 60 meq DAILY #0 05/04/16 10/26/18 History docusate sodium 100 mg PO DAILY 10/26/18 10/26/18 History insulin NPH isoph U-100 human 30 unit BID 10/26/18 10/26/18 History [Novolin N NPH U-100 Insulin] metformin 500 mg PO BID 10/26/18 10/26/18 History oxycodone 5 mg Q6H PRN 10/26/18 10/26/18 History Allergies Allergy/AdvReac Type Severity Reaction Status Date / Time ciprofloxacin [From CIPRO] Allergy Unknown Unverified 08/27/17 12:29 doxylamine [DOXYLAMINE] Allergy Unknown Unverified 08/27/17 12:29 Sulfa (Sulfonamide Allergy Unknown Unverified 08/27/17 12:29 Antibiotics) [SULFA (SULFONAMIDE ANTIBIOTICS)] vancomycin [From VANCOCIN] Allergy Unknown Unverified 08/27/17 12:29 Exam Vital signs: Vital Signs Temp Pulse Resp BP Pulse Ox 11/17/18 15:00 98.3 F 88 16 143/94 H 94 - Constitutional positive no acute distress, positive obese Comments: He is in a wheelchair. He is not further examined. Assessment and Plan (1) Leukocytosis Current visit: Yes Status: Acute 73-year-old man with leukocytosis and thrombocytosis that is been present for at least 3 years. He is completely asymptomatic. Molecular testing for myeloproliferative disorder is negative. There is no mutation in J AK 2, MPL or CALR. He does not have a 9; 22 translocation. I think that this is entirely consistent with prior splenectomy. I do not think any further evaluation or treatment is required. I have not scheduled a follow-up appointment for him but would be happy to see him in the future should his counts significantly change.
== END ==
PROVIDERS: Family Provider Internal Medicine; PCP Internal Medicine
DX: D72.829 Elevated white blood cell count, unspecified (principal); D47.3 Essential (hemorrhagic) thrombocythemia; E11.9 Type 2 diabetes mellitus without complications; I10 Essential (primary) hypertension; I25.2 Old myocardial infarction; I69.351 Hemiplegia and hemiparesis following cerebral infarction affecting right dominant side; Z90.81 Acquired absence of spleen; Z79.4 Long term (current) use of insulin
CPT/HCPCS: 99204; 99213; 99214

== ENCOUNTER → 2019-01-28 07:38 | Outpatient (ROUT) | payer MEDICARE, MEDICAID, SELFPAY ==
[2019-01-28 08:15] LABS: Add Manual Diff / Slide Review NO; Basophils Absolute Auto 200 /uL (0-100); Basophils Percent Auto 1.8 % (0-2); Eosinophils Absolute Auto 1000 /uL (0-450); Eosinophils Percent Auto 7.5 % (2-4); Hematocrit 41.9 % (41-53); Hemoglobin 13.3 g/dL (13.5-17.5); Lymphocytes Absolute Auto 4400 /uL (1100-4500); Lymphocytes Percent Auto 34.2 % (25-40); Mean Corpuscular HGB Conc 31.8 % (30-36); Mean Corpuscular Hemoglobin 26.9 PG (26-34); Mean Corpuscular Volume 84.8 fL (80-100); Monocytes Absolute Auto 1200 /uL (0-900); Monocytes Percent Auto 9.8 % (3-14); Neutrophils Absolute Auto 5900 /uL (1500-7000); Neutrophils Percent Auto 46.7 % (50-75); Platelet Count 568 X10^3/uL (150-400); Red Blood Cell Count 4.95 X10^6/uL (4.5-5.9); Red Cell Distribution Width 17.1 % (11.6-14.8); White Blood Cell Count 12.7 X10^3/uL (4.5-11.0)
[2019-01-28 08:28] LABS: Hemoglobin A1C% w Est Avg Glu 8.2 % (4.0-6.0)
[2019-01-28 08:46] LABS: Alanine Aminotransferase 11 IU/L (21-72); Albumin 3.6 g/dL (3.5-5.0); Albumin Globulin Ratio 1.2 (1.0-2.8); Alkaline Phosphatase 90 U/L (38-126); Aspartate Aminotransferase 20 IU/L (17-59); BUN Creatinine Ratio 28.9 (6-22); Bilirubin Total 0.3 mg/dL (0.2-1.3); Blood Urea Nitrogen 26 mg/dL (9-20); Calcium 10.1 mg/dL (8.4-10.2); Carbon Dioxide 29 mmol/L (22-32); Chloride 102 mmol/L (98-107); Estimated Glomerular Filt Rate > 60.0 mL/min (>60); Globulin 2.9 g/dL (1.7-4.1); Glucose 180 mg/dL (80-110); HEMOLYSIS < 15 (0-50); Potassium 4.6 mmol/L (3.4-5.1); Sodium 140 mmol/L (137-145); Total Protein 6.5 g/dL (6.3-8.2)
== END ==
PROVIDERS: PCP Internal Medicine; Visit Provider Internal Medicine
DX: E11.9 Type 2 diabetes mellitus without complications (principal); I10 Essential (primary) hypertension
CPT/HCPCS: 36415; 80053; 83036; 85025

== ENCOUNTER → 2019-02-23 08:02 | Outpatient (ROUT) | payer MEDICARE, MEDICAID, SELFPAY ==
[2019-02-23 09:15] LABS: Hemoglobin A1C% w Est Avg Glu 7.7 % (4.0-6.0)
[2019-02-23 09:23] LABS: BUN Creatinine Ratio 31.1 (6-22); Blood Urea Nitrogen 28 mg/dL (9-20); Calcium 9.5 mg/dL (8.4-10.2); Carbon Dioxide 28 mmol/L (22-32); Chloride 101 mmol/L (98-107); Estimated Glomerular Filt Rate > 60.0 mL/min (>60); Glucose 205 mg/dL (80-110); HEMOLYSIS < 15 (0-50); Potassium 4.9 mmol/L (3.4-5.1); Sodium 140 mmol/L (137-145)
[2019-02-23 12:29] LABS: Add Manual Diff / Slide Review NO; Basophils Absolute Auto 200 /uL (0-100); Basophils Percent Auto 1.8 % (0-2); Eosinophils Absolute Auto 1400 /uL (0-450); Eosinophils Percent Auto 11.9 % (2-4); Hematocrit 42.4 % (41-53); Hemoglobin 13.6 g/dL (13.5-17.5); Lymphocytes Absolute Auto 4000 /uL (1100-4500); Lymphocytes Percent Auto 34.3 % (25-40); Mean Corpuscular Hemoglobin 27.3 PG (26-34); Mean Corpuscular Volume 85.4 fL (80-100); Monocytes Absolute Auto 1500 /uL (0-900); Monocytes Percent Auto 12.7 % (3-14); Neutrophils Absolute Auto 4600 /uL (1500-7000); Neutrophils Percent Auto 39.3 % (50-75); Platelet Count 499 X10^3/uL (150-400); Red Blood Cell Count 4.97 X10^6/uL (4.5-5.9); Red Cell Distribution Width 17.3 % (11.6-14.8); White Blood Cell Count 11.7 X10^3/uL (4.5-11.0)
== END ==
PROVIDERS: PCP Internal Medicine; Visit Provider Internal Medicine
DX: E11.9 Type 2 diabetes mellitus without complications (principal); E16.2 Hypoglycemia, unspecified; I63.9 Cerebral infarction, unspecified; D72.829 Elevated white blood cell count, unspecified
CPT/HCPCS: 36415; 80048; 83036; 85025

== ENCOUNTER → 2019-04-30 23:44 | Outpatient (ROUT) | payer MEDICARE, SELFPAY | PROVIDERS: PCP Internal Medicine; Visit Provider Internal Medicine | DX: L02.91 Cutaneous abscess, unspecified (principal) | CPT/HCPCS: 87070; 87075; 87077; 87186; 87205 ==

== ENCOUNTER → 2019-06-22 07:40 | Outpatient (ROUT) | payer MEDICARE, SELFPAY ==
[2019-06-22 08:27] LABS: Add Manual Diff / Slide Review NO; Basophils Absolute Auto 200 /uL (0-100); Basophils Percent Auto 1.7 % (0-2); Eosinophils Absolute Auto 1500 /uL (0-450); Eosinophils Percent Auto 11.3 % (2-4); Hematocrit 46.2 % (41-53); Hemoglobin 15.1 g/dL (13.5-17.5); Lymphocytes Absolute Auto 3900 /uL (1100-4500); Lymphocytes Percent Auto 30.2 % (25-40); Mean Corpuscular HGB Conc 32.6 % (30-36); Mean Corpuscular Hemoglobin 29.2 PG (26-34); Mean Corpuscular Volume 89.4 fL (80-100); Monocytes Absolute Auto 1500 /uL (0-900); Monocytes Percent Auto 11.9 % (3-14); Neutrophils Absolute Auto 5800 /uL (1500-7000); Neutrophils Percent Auto 44.9 % (50-75); Platelet Count 451 X10^3/uL (150-400); Red Blood Cell Count 5.17 X10^6/uL (4.5-5.9); Red Cell Distribution Width 16.3 % (11.6-14.8)
[2019-06-22 08:37] LABS: BUN Creatinine Ratio 27.3 (6-22); Blood Urea Nitrogen 30 mg/dL (9-20); Calcium 9.7 mg/dL (8.4-10.2); Carbon Dioxide 29 mmol/L (22-32); Chloride 97 mmol/L (98-107); Estimated Glomerular Filt Rate > 60.0 mL/min (>60); Glucose 287 mg/dL (80-110); HEMOLYSIS < 15 (0-50); Potassium 4.7 mmol/L (3.4-5.1); Sodium 137 mmol/L (137-145)
[2019-06-22 08:58] LABS: Hemoglobin A1C% w Est Avg Glu 8.1 % (4.0-6.0)
== END ==
PROVIDERS: PCP Internal Medicine; Visit Provider Internal Medicine
DX: E11.9 Type 2 diabetes mellitus without complications (principal); I10 Essential (primary) hypertension
CPT/HCPCS: 36415; 80048; 83036; 85025

== ENCOUNTER → 2019-10-07 07:38 | Outpatient (ROUT) | payer MEDICARE, SELFPAY | PROVIDERS: PCP Internal Medicine; Visit Provider Internal Medicine | DX: E11.9 Type 2 diabetes mellitus without complications (principal) | CPT/HCPCS: 36415; 83036 ==

== ENCOUNTER → 2019-10-26 08:11 | Outpatient (ROUT) | payer MEDICARE, MEDICAID, SELFPAY ==
[2019-10-26 09:54] LABS: Add Manual Diff / Slide Review NO; Basophils Absolute Auto 200 /uL (0-100); Basophils Percent Auto 1.7 % (0-2); Eosinophils Absolute Auto 1100 /uL (0-450); Hematocrit 42.5 % (41-53); Lymphocytes Absolute Auto 4500 /uL (1100-4500); Lymphocytes Percent Auto 32.8 % (25-40); Mean Corpuscular Hemoglobin 30.2 PG (26-34); Mean Corpuscular Volume 91.4 fL (80-100); Monocytes Absolute Auto 1600 /uL (0-900); Monocytes Percent Auto 11.4 % (3-14); Neutrophils Absolute Auto 6300 /uL (1500-7000); Neutrophils Percent Auto 46.1 % (50-75); Red Blood Cell Count 4.65 X10^6/uL (4.5-5.9); White Blood Cell Count 13.7 X10^3/uL (4.5-11.0)
[2019-10-26 09:57] LABS: BUN Creatinine Ratio 29.2 (6-22); Blood Urea Nitrogen 26 mg/dL (9-20); Calcium 9.4 mg/dL (8.4-10.2); Carbon Dioxide 28 mmol/L (22-32); Chloride 99 mmol/L (98-107); Estimated Glomerular Filt Rate > 60.0 mL/min (>60); Glucose 196 mg/dL (80-110); HEMOLYSIS < 15 (0-50); Potassium 4.3 mmol/L (3.4-5.1); Sodium 137 mmol/L (137-145)
[2019-10-26 11:22] LABS: Platelet Count 529 X10^3/uL (150-400)
== END ==
PROVIDERS: PCP Internal Medicine; Visit Provider Internal Medicine
DX: I10 Essential (primary) hypertension (principal); E11.9 Type 2 diabetes mellitus without complications
CPT/HCPCS: 36415; 80048; 85025

== ENCOUNTER → 2020-01-20 08:36 | Outpatient (ROUT) | payer MEDICARE, MEDICAID, SELFPAY ==
[2020-01-20 09:17] LABS: Hemoglobin A1C% w Est Avg Glu 8.5 % (4.0-6.0)
== END ==
PROVIDERS: PCP Internal Medicine; Visit Provider Nurse Practitioner Gerontology
DX: E11.40 Type 2 diabetes mellitus with diabetic neuropathy, unspecified (principal)
CPT/HCPCS: 36415; 83036

== ENCOUNTER → 2020-05-04 08:23 | Outpatient (ROUT) | payer MEDICARE, MEDICAID, SELFPAY ==
[2020-05-04 08:48] LABS: Add Manual Diff / Slide Review NO; Basophils Absolute Auto 100 /uL (0-100); Basophils Percent Auto 0.6 % (0-2); Eosinophils Absolute Auto 700 /uL (0-450); Eosinophils Percent Auto 5.3 % (2-4); Hematocrit 46.9 % (41-53); Hemoglobin 15.1 g/dL (13.5-17.5); Lymphocytes Absolute Auto 4000 /uL (1100-4500); Lymphocytes Percent Auto 32.3 % (25-40); Mean Corpuscular HGB Conc 32.3 % (30-36); Mean Corpuscular Hemoglobin 29.4 PG (26-34); Mean Corpuscular Volume 91.2 fL (80-100); Monocytes Absolute Auto 1500 /uL (0-900); Monocytes Percent Auto 12.1 % (3-14); Neutrophils Absolute Auto 6200 /uL (1500-7000); Neutrophils Percent Auto 49.7 % (50-75); Platelet Count 530 X10^3/uL (150-400); Red Blood Cell Count 5.14 X10^6/uL (4.5-5.9); Red Cell Distribution Width 14.8 % (11.6-14.8); White Blood Cell Count 12.4 X10^3/uL (4.5-11.0)
[2020-05-04 08:54] LABS: Hemoglobin A1C% w Est Avg Glu 9.9 % (4.0-6.0)
[2020-05-04 09:08] LABS: Alanine Aminotransferase 24 IU/L (<50); Albumin 3.7 g/dL (3.5-5.0); Albumin Globulin Ratio 1.1 (1.0-2.8); Alkaline Phosphatase 173 U/L (38-126); Aspartate Aminotransferase 30 IU/L (17-59); BUN Creatinine Ratio 25.7 (6-22); Bilirubin Total 0.5 mg/dL (0.2-1.3); Blood Urea Nitrogen 18 mg/dL (9-20); Calcium 9.3 mg/dL (8.4-10.2); Carbon Dioxide 33 mmol/L (22-32); Chloride 101 mmol/L (98-107); Estimated Glomerular Filt Rate > 60.0 mL/min (>60); Globulin 3.3 g/dL (1.7-4.1); Glucose 151 mg/dL (80-110); HEMOLYSIS < 15 (0-50); Potassium 3.9 mmol/L (3.4-5.1); Sodium 138 mmol/L (137-145)
== END ==
PROVIDERS: PCP Internal Medicine; Visit Provider Nurse Practitioner Gerontology
DX: E11.9 Type 2 diabetes mellitus without complications (principal)
CPT/HCPCS: 36415; 80053; 83036; 85025

== ENCOUNTER → 2020-05-30 08:12 | Outpatient (ROUT) | payer MEDICARE, MEDICAID, SELFPAY ==
[2020-05-30 08:46] LABS: Basophils Absolute Auto 200 /uL (0-100); Basophils Percent Auto 1.3 % (0-2); Eosinophils Absolute Auto 1000 /uL (0-450); Eosinophils Percent Auto 7.4 % (2-4); Hemoglobin 14.6 g/dL (13.5-17.5); Lymphocytes Absolute Auto 3300 /uL (1100-4500); Lymphocytes Percent Auto 24.5 % (25-40); Mean Corpuscular HGB Conc 32.4 % (30-36); Mean Corpuscular Hemoglobin 29.6 PG (26-34); Mean Corpuscular Volume 91.3 fL (80-100); Monocytes Absolute Auto 1800 /uL (0-900); Monocytes Percent Auto 13.3 % (3-14); Neutrophils Absolute Auto 7300 /uL (1500-7000); Neutrophils Percent Auto 53.5 % (50-75); Red Blood Cell Count 4.93 X10^6/uL (4.5-5.9); Red Cell Distribution Width 14.7 % (11.6-14.8); White Blood Cell Count 13.5 X10^3/uL (4.5-11.0)
[2020-05-30 08:53] LABS: Add Manual Diff / Slide Review SLIDE REVIEW
[2020-05-30 09:47] LABS: Platelet Estimate Increased on smear; Poikilocytosis 1+
[2020-05-30 09:49] LABS: Platelet Count 510 X10^3/uL (150-400)
== END ==
PROVIDERS: PCP Internal Medicine; Visit Provider Nurse Practitioner Gerontology
DX: D47.3 Essential (hemorrhagic) thrombocythemia (principal)
CPT/HCPCS: 36415; 85025

== ENCOUNTER → 2020-07-20 18:52 | Outpatient (ROUT) | payer MEDICARE, MEDICAID, SELFPAY ==
[2020-07-20 18:58] LABS: Add Manual Diff / Slide Review NO; Basophils Absolute Auto 200 /uL (0-100); Basophils Percent Auto 1.3 % (0-2); Eosinophils Absolute Auto 1900 /uL (0-450); Eosinophils Percent Auto 11.1 % (2-4); Hematocrit 46.8 % (41-53); Hemoglobin 15.2 g/dL (13.5-17.5); Lymphocytes Absolute Auto 4700 /uL (1100-4500); Lymphocytes Percent Auto 26.8 % (25-40); Mean Corpuscular HGB Conc 32.6 % (30-36); Mean Corpuscular Hemoglobin 29.7 PG (26-34); Mean Corpuscular Volume 91.2 fL (80-100); Monocytes Absolute Auto 1900 /uL (0-900); Monocytes Percent Auto 10.9 % (3-14); Neutrophils Absolute Auto 8800 /uL (1500-7000); Neutrophils Percent Auto 49.9 % (50-75); Platelet Count 473 X10^3/uL (150-400); Red Blood Cell Count 5.13 X10^6/uL (4.5-5.9); Red Cell Distribution Width 15.2 % (11.6-14.8); White Blood Cell Count 17.5 X10^3/uL (4.5-11.0)
[2020-07-20 19:19] LABS: Alanine Aminotransferase 21 IU/L (<50); Albumin Globulin Ratio 1.3 (1.0-2.8); Alkaline Phosphatase 130 U/L (38-126); Amylase 70 U/L (30-110); Aspartate Aminotransferase 25 IU/L (17-59); BUN Creatinine Ratio 32.6 (6-22); Bilirubin Total 0.3 mg/dL (0.2-1.3); Blood Urea Nitrogen 29 mg/dL (9-20); Calcium 9.9 mg/dL (8.4-10.2); Carbon Dioxide 26 mmol/L (22-32); Chloride 100 mmol/L (98-107); Estimated Glomerular Filt Rate > 60.0 mL/min (>60); Globulin 3.2 g/dL (1.7-4.1); Glucose 178 mg/dL (80-110); HEMOLYSIS 17 (0-50); Lipase 21 U/L (23-300); Potassium 4.7 mmol/L (3.4-5.1); Sodium 136 mmol/L (137-145); Total Protein 7.2 g/dL (6.3-8.2)
== END ==
PROVIDERS: PCP Internal Medicine; Visit Provider Nurse Practitioner Family
DX: R10.9 Unspecified abdominal pain (principal); Z87.19 Personal history of other diseases of the digestive system
CPT/HCPCS: 80053; 82150; 83690; 85025

== ENCOUNTER → 2020-08-01 08:50 | Outpatient (ROUT) | payer MEDICARE, MEDICAID, SELFPAY ==
[2020-08-01 09:40] LABS: BUN Creatinine Ratio 28.6 (6-22); Blood Urea Nitrogen 26 mg/dL (9-20); Calcium 9.6 mg/dL (8.4-10.2); Carbon Dioxide 33 mmol/L (22-32); Chloride 97 mmol/L (98-107); Estimated Glomerular Filt Rate > 60.0 mL/min (>60); Glucose 196 mg/dL (80-110); HEMOLYSIS < 15 (0-50); Potassium 4.2 mmol/L (3.4-5.1); Sodium 137 mmol/L (137-145)
[2020-08-01 09:41] LABS: Hemoglobin A1C% w Est Avg Glu 8.7 % (4.0-6.0)
== END ==
PROVIDERS: PCP Internal Medicine; Visit Provider Nurse Practitioner Gerontology
DX: E11.9 Type 2 diabetes mellitus without complications (principal)
CPT/HCPCS: 36415; 80048; 83036

== ENCOUNTER → 2020-08-29 07:49 | Outpatient (ROUT) | payer MEDICARE, MEDICAID, SELFPAY ==
[2020-08-29 08:37] LABS: Hematocrit 44.9 % (41-53); Hemoglobin 14.4 g/dL (13.5-17.5); Mean Corpuscular Hemoglobin 29.4 PG (26-34); Mean Corpuscular Volume 91.8 fL (80-100); Platelet Count 502 X10^3/uL (150-400); Red Cell Distribution Width 15.4 % (11.6-14.8); White Blood Cell Count 15.5 X10^3/uL (4.5-11.0)
[2020-08-29 08:43] LABS: Add Manual Diff / Slide Review YES
[2020-08-29 09:15] LABS: Neutrophils Absolute Manual 9300 /uL (3000-5900); RBC Morphology Norm; Total Cells Counted 100
== END ==
PROVIDERS: Visit Provider Nurse Practitioner Gerontology
DX: D72.10 Eosinophilia, unspecified (principal); D72.829 Elevated white blood cell count, unspecified
CPT/HCPCS: 36415; 85007; 85025

== ENCOUNTER → 2020-10-31 07:43 | Outpatient (ROUT) | payer MEDICARE, MEDICAID, SELFPAY ==
[2020-10-31 08:39] LABS: Hemoglobin A1C% w Est Avg Glu 9.5 % (4.0-6.0)
== END ==
PROVIDERS: Visit Provider Nurse Practitioner Family
DX: E11.9 Type 2 diabetes mellitus without complications (principal)
CPT/HCPCS: 36415; 83036

== ENCOUNTER → 2020-12-26 07:50 | Outpatient (ROUT) | payer MEDICARE, MEDICAID, SELFPAY ==
[2020-12-26 09:00] LABS: Add Manual Diff / Slide Review NO; Basophils Absolute Auto 200 /uL (0-100); Basophils Percent Auto 1.3 % (0-2); Eosinophils Absolute Auto 1200 /uL (0-450); Eosinophils Percent Auto 8.4 % (2-4); Hematocrit 44.9 % (41-53); Hemoglobin 14.6 g/dL (13.5-17.5); Lymphocytes Absolute Auto 4400 /uL (1100-4500); Lymphocytes Percent Auto 30.9 % (25-40); Mean Corpuscular HGB Conc 32.6 % (30-36); Mean Corpuscular Hemoglobin 29.9 PG (26-34); Mean Corpuscular Volume 91.6 fL (80-100); Monocytes Absolute Auto 1600 /uL (0-900); Monocytes Percent Auto 11.4 % (3-14); Neutrophils Absolute Auto 6800 /uL (1500-7000); Platelet Count 474 X10^3/uL (150-400); Red Cell Distribution Width 14.2 % (11.6-14.8); White Blood Cell Count 14.2 X10^3/uL (4.5-11.0)
[2020-12-26 09:01] LABS: Hemoglobin A1C% w Est Avg Glu 8.7 % (4.0-6.0)
[2020-12-26 09:08] LABS: Alanine Aminotransferase 31 IU/L (<50); Albumin 3.7 g/dL (3.5-5.0); Albumin Globulin Ratio 1.2 (1.0-2.8); Alkaline Phosphatase 114 U/L (38-126); Aspartate Aminotransferase 27 IU/L (17-59); BUN Creatinine Ratio 26.8 (6-22); Bilirubin Total 0.4 mg/dL (0.2-1.3); Blood Urea Nitrogen 22 mg/dL (9-20); Calcium 9.4 mg/dL (8.4-10.2); Carbon Dioxide 30 mmol/L (22-32); Chloride 99 mmol/L (98-107); Estimated Glomerular Filt Rate > 60.0 mL/min (>60); Globulin 3.1 g/dL (1.7-4.1); Glucose 263 mg/dL (80-110); HEMOLYSIS < 15 (0-50); Potassium 4.1 mmol/L (3.4-5.1); Sodium 137 mmol/L (137-145); Total Protein 6.8 g/dL (6.3-8.2)
== END ==
PROVIDERS: Visit Provider Nurse Practitioner Family
DX: E11.9 Type 2 diabetes mellitus without complications (principal)
CPT/HCPCS: 36415; 80053; 83036; 85025

== ENCOUNTER → 2021-01-30 07:56 | Outpatient (ROUT) | payer MEDICARE, MEDICAID, SELFPAY ==
[2021-01-30 08:50] LABS: Basophils Absolute Auto 200 /uL (0-100); Basophils Percent Auto 1.3 % (0-2); Eosinophils Absolute Auto 1100 /uL (0-450); Eosinophils Percent Auto 7.4 % (2-4); Hematocrit 46.6 % (41-53); Hemoglobin 15.1 g/dL (13.5-17.5); Lymphocytes Absolute Auto 4700 /uL (1100-4500); Lymphocytes Percent Auto 31.9 % (25-40); Mean Corpuscular HGB Conc 32.5 % (30-36); Mean Corpuscular Hemoglobin 29.7 PG (26-34); Mean Corpuscular Volume 91.6 fL (80-100); Monocytes Absolute Auto 1700 /uL (0-900); Monocytes Percent Auto 11.3 % (3-14); Neutrophils Absolute Auto 7100 /uL (1500-7000); Neutrophils Percent Auto 48.1 % (50-75); Red Blood Cell Count 5.08 X10^6/uL (4.5-5.9); Red Cell Distribution Width 15.1 % (11.6-14.8); White Blood Cell Count 14.7 X10^3/uL (4.5-11.0)
[2021-01-30 08:52] LABS: Hemoglobin A1C% w Est Avg Glu 8.5 % (4.0-6.0)
[2021-01-30 09:15] LABS: Add Manual Diff / Slide Review SLIDE REVIEW
[2021-01-30 09:21] LABS: BUN Creatinine Ratio 23.9 (6-22); Blood Urea Nitrogen 21 mg/dL (9-20); Calcium 9.4 mg/dL (8.4-10.2); Carbon Dioxide 29 mmol/L (22-32); Chloride 100 mmol/L (98-107); Estimated Glomerular Filt Rate > 60.0 mL/min (>60); Glucose 152 mg/dL (80-110); HEMOLYSIS < 15 (0-50); Potassium 4.1 mmol/L (3.4-5.1); Sodium 138 mmol/L (137-145)
[2021-01-30 12:19] LABS: RBC Morphology Normal Morphology
[2021-01-30 12:20] LABS: Platelet Estimate Increased on smear
== END ==
PROVIDERS: Visit Provider Internal Medicine
DX: E11.22 Type 2 diabetes mellitus with diabetic chronic kidney disease (principal); N18.9 Chronic kidney disease, unspecified
CPT/HCPCS: 36415; 80048; 83036; 85025

== ENCOUNTER → 2021-03-13 08:29 | Outpatient (ROUT) | payer MEDICARE, MEDICAID, SELFPAY ==
[2021-03-13 11:58] LABS: Basophils Absolute Auto 200 /uL (0-100); Basophils Percent Auto 1.4 % (0-2); Eosinophils Absolute Auto 1200 /uL (0-450); Hematocrit 46.2 % (41-53); Hemoglobin 14.9 g/dL (13.5-17.5); Lymphocytes Absolute Auto 3600 /uL (1100-4500); Lymphocytes Percent Auto 25.1 % (25-40); Mean Corpuscular HGB Conc 32.3 % (30-36); Mean Corpuscular Hemoglobin 29.6 PG (26-34); Mean Corpuscular Volume 91.7 fL (80-100); Monocytes Absolute Auto 1600 /uL (0-900); Monocytes Percent Auto 10.9 % (3-14); Neutrophils Absolute Auto 7800 /uL (1500-7000); Neutrophils Percent Auto 54.6 % (50-75); Red Blood Cell Count 5.03 X10^6/uL (4.5-5.9); Red Cell Distribution Width 15.8 % (11.6-14.8); White Blood Cell Count 14.3 X10^3/uL (4.5-11.0)
[2021-03-13 11:59] LABS: Add Manual Diff / Slide Review SLIDE REVIEW
[2021-03-13 12:11] LABS: BUN Creatinine Ratio 22.1 (6-22); Blood Urea Nitrogen 21 mg/dL (9-20); Calcium 9.8 mg/dL (8.4-10.2); Carbon Dioxide 29 mmol/L (22-32); Chloride 97 mmol/L (98-107); Estimated Glomerular Filt Rate > 60.0 mL/min (>60); Glucose 167 mg/dL (80-110); HEMOLYSIS < 15 (0-50); Sodium 140 mmol/L (137-145)
[2021-03-13 12:28] LABS: RBC Morphology Normal Morphology
[2021-03-13 12:30] LABS: Platelet Count 504 X10^3/uL (150-400)
== END ==
PROVIDERS: Visit Provider Nurse Practitioner Gerontology
DX: E11.9 Type 2 diabetes mellitus without complications (principal)
CPT/HCPCS: 36415; 80048; 85025

== ENCOUNTER → 2021-09-25 08:11 | Outpatient (ROUT) | payer MEDICARE, MEDICAID, SELFPAY ==
[2021-09-25 08:44] LABS: Add Manual Diff / Slide Review NO; Basophils Absolute Auto 200 /uL (0-100); Basophils Percent Auto 1.5 % (0-2); Eosinophils Absolute Auto 800 /uL (0-450); Eosinophils Percent Auto 5.7 % (2-4); Hematocrit 44.2 % (41-53); Hemoglobin 14.3 g/dL (13.5-17.5); Lymphocytes Absolute Auto 3600 /uL (1100-4500); Lymphocytes Percent Auto 26.5 % (25-40); Mean Corpuscular HGB Conc 32.3 % (30-36); Mean Corpuscular Hemoglobin 29.9 PG (26-34); Mean Corpuscular Volume 92.4 fL (80-100); Monocytes Absolute Auto 1700 /uL (0-900); Monocytes Percent Auto 12.5 % (3-14); Neutrophils Absolute Auto 7400 /uL (1500-7000); Neutrophils Percent Auto 53.8 % (50-75); Platelet Count 505 X10^3/uL (150-400); Red Blood Cell Count 4.78 X10^6/uL (4.5-5.9); Red Cell Distribution Width 14.6 % (11.6-14.8); White Blood Cell Count 13.7 X10^3/uL (4.5-11.0)
[2021-09-25 08:49] LABS: Hemoglobin A1C% w Est Avg Glu 9.3 % (4.0-6.0)
[2021-09-25 08:51] LABS: Alanine Aminotransferase 11 IU/L (<50); Albumin 3.9 g/dL (3.5-5.0); Albumin Globulin Ratio 1.4 (1.0-2.8); Alkaline Phosphatase 78 U/L (38-126); Aspartate Aminotransferase 16 IU/L (17-59); BUN Creatinine Ratio 14.6 (6-22); Bilirubin Total 0.5 mg/dL (0.2-1.3); Blood Urea Nitrogen 15 mg/dL (9-20); Calcium 9.1 mg/dL (8.4-10.2); Carbon Dioxide 33 mmol/L (22-32); Chloride 98 mmol/L (98-107); Estimated Glomerular Filt Rate > 60 mL/min (>60); Globulin 2.8 g/dL (1.7-4.1); Glucose 244 mg/dL (80-110); HEMOLYSIS < 15 (0-50); Potassium 3.7 mmol/L (3.4-5.1); Sodium 138 mmol/L (137-145); Total Protein 6.7 g/dL (6.3-8.2)
== END ==
PROVIDERS: Visit Provider Internal Medicine
DX: E11.40 Type 2 diabetes mellitus with diabetic neuropathy, unspecified (principal); I10 Essential (primary) hypertension
CPT/HCPCS: 36415; 80053; 83036; 85025

== ENCOUNTER → 2021-12-18 08:34 | Outpatient (ROUT) | payer MEDICARE, MEDICAID, SELFPAY ==
[2021-12-18 09:52] LABS: Hemoglobin A1C% w Est Avg Glu 9.4 % (4.0-6.0)
== END ==
PROVIDERS: PCP Internal Medicine; Visit Provider Nurse Practitioner Family
DX: E11.9 Type 2 diabetes mellitus without complications (principal)
CPT/HCPCS: 36415; 83036

== ENCOUNTER → 2022-03-19 07:49 | Outpatient (ROUT) | payer MEDICARE, MEDICAID, SELFPAY ==
[2022-03-19 08:51] LABS: Hemoglobin A1C% w Est Avg Glu 8.5 % (4.0-6.0)
[2022-03-19 09:09] LABS: BUN Creatinine Ratio 22.9 (6-22); Blood Urea Nitrogen 22 mg/dL (9-20); Calcium 8.8 mg/dL (8.4-10.2); Carbon Dioxide 28 mmol/L (22-32); Chloride 101 mmol/L (98-107); Estimated Glomerular Filt Rate > 60 mL/min (>60); Glucose 108 mg/dL (80-110); HEMOLYSIS < 15 (0-50); Potassium 4.2 mmol/L (3.4-5.1); Sodium 140 mmol/L (137-145)
== END ==
PROVIDERS: PCP Internal Medicine; Visit Provider Nurse Practitioner Family
DX: E11.9 Type 2 diabetes mellitus without complications (principal); E87.6 Hypokalemia
CPT/HCPCS: 36415; 80048; 83036

== ENCOUNTER → 2022-06-25 09:15 | Outpatient (ROUT) | payer MEDICARE, MEDICAID, SELFPAY ==
[2022-06-25 10:44] LABS: Hemoglobin A1C% w Est Avg Glu 9.4 % (4.0-6.0)
[2022-06-25 10:48] LABS: BUN Creatinine Ratio 18.4 (6-22); Blood Urea Nitrogen 14 mg/dL (9-20); Calcium 9.1 mg/dL (8.4-10.2); Carbon Dioxide 29 mmol/L (22-32); Chloride 99 mmol/L (98-107); Estimated Glomerular Filt Rate > 60 mL/min (>60); Glucose 190 mg/dL (80-110); HEMOLYSIS < 15 (0-50); Potassium 4.3 mmol/L (3.4-5.1); Sodium 138 mmol/L (137-145)
== END ==
PROVIDERS: PCP Internal Medicine; Visit Provider Nurse Practitioner Gerontology
DX: E11.9 Type 2 diabetes mellitus without complications (principal)
CPT/HCPCS: 36415; 80048; 83036

== ENCOUNTER → 2022-11-26 08:21 | Outpatient (ROUT) | payer MEDICARE, MEDICAID, SELFPAY ==
[2022-11-26 08:59] LABS: Basophils Absolute Auto 200 /uL (0-100); Eosinophils Absolute Auto 500 /uL (0-450); Eosinophils Percent Auto 4.5 % (2-4); Hematocrit 42.1 % (41-53); Lymphocytes Absolute Auto 3300 /uL (1100-4500); Lymphocytes Percent Auto 31.1 % (25-40); Mean Corpuscular HGB Conc 33.4 % (30-36); Mean Corpuscular Volume 89.7 fL (80-100); Monocytes Absolute Auto 1300 /uL (0-900); Monocytes Percent Auto 12.6 % (3-14); Neutrophils Absolute Auto 5300 /uL (1500-7000); Neutrophils Percent Auto 49.8 % (50-75); Platelet Count 398 X10^3/uL (150-400); Red Blood Cell Count 4.69 X10^6/uL (4.5-5.9); Red Cell Distribution Width 14.8 % (11.6-14.8); White Blood Cell Count 10.6 X10^3/uL (4.5-11.0)
[2022-11-26 09:18] LABS: BUN Creatinine Ratio 22.7 (6-22); Blood Urea Nitrogen 15 mg/dL (9-20); Calcium 9.1 mg/dL (8.4-10.2); Carbon Dioxide 31 mmol/L (22-32); Chloride 105 mmol/L (98-107); Estimated Glomerular Filt Rate > 60 mL/min (>60); Glucose 275 mg/dL (80-110); HEMOLYSIS < 15 (0-50); Sodium 138 mmol/L (137-145)
[2022-11-26 09:19] LABS: Add Manual Diff / Slide Review SLIDE REVIEW
[2022-11-26 09:20] LABS: RBC Morphology Normal Morphology
[2022-11-27 05:30] LABS: Labcorp Hemoglobin (Hb) A1c 9.6 % (4.8-5.6)
== END ==
PROVIDERS: PCP Internal Medicine; Visit Provider Nurse Practitioner Gerontology
DX: E11.9 Type 2 diabetes mellitus without complications (principal)
CPT/HCPCS: 36415; 80048; 83036; 85025

== ENCOUNTER → 2022-12-31 07:13 | Outpatient (ROUT) | payer MEDICARE, MEDICAID, SELFPAY ==
[2022-12-31 08:03] LABS: Prostate Specific Antigen 10.1 ng/mL (0.10-4.00)
== END ==
PROVIDERS: PCP Internal Medicine; Visit Provider Nurse Practitioner Gerontology
DX: N40.1 Benign prostatic hyperplasia with lower urinary tract symptoms (principal)
CPT/HCPCS: 36415; 84153

== ENCOUNTER → 2023-01-21 07:32 | Outpatient (ROUT) | payer MEDICARE, MEDICAID, SELFPAY ==
[2023-01-21 09:17] LABS: Prostate Specific Antigen 9.48 ng/mL (0.10-4.00)
== END ==
PROVIDERS: PCP Internal Medicine; Visit Provider Nurse Practitioner Gerontology
DX: N40.1 Benign prostatic hyperplasia with lower urinary tract symptoms (principal)
CPT/HCPCS: 36415; 84153

== ENCOUNTER 2023-02-27 14:11 | Inpatient (IN) | payer MEDICARE, MEDICAID, SELFPAY ==
[2023-02-27] VITALS (36 sets, daily range): BP systolic 90–132; BP diastolic 58–79; PULSE 91–122; RESP 20–35; TEMP 36.4–36.8; O2SAT 93–98; BMI 32.5
[2023-02-27] MEDS: SODIUM CHLORIDE 0.9% 1,000 ML 1000 ML IV ×2 (14:23→15:54)
--- NOTE | 2023-02-27 14:33 | DI.RAD.S_ITS ---
PROCEDURE: XR CHEST 1V INDICATIONS: HYPERGLYCEMIA/GEN WEAKNESS TECHNIQUE: One view of the chest was acquired. COMPARISON: [facility], , CHEST 1 VIEW, 05/04/2016, 11:52. FINDINGS: Surgical changes and devices: None. Lungs and pleura: Stable nodular density projecting over the left mid lung zone. No acute airspace disease identified. No pleural effusions or pneumothorax. Mediastinum: Mediastinal contours appear normal. Heart size is normal. Bones and chest wall: No suspicious bony lesions. Overlying soft tissues appear unremarkable. IMPRESSION: Stable radiographic evaluation of the chest without acute cardiopulmonary abnormalities or focal airspace disease. Dictated by: James Sutton M.D. on 02/27/2023 at 15:36 Approved by: James Sutton M.D. on 02/27/2023 at 15:36
--- NOTE | 2023-02-27 14:33 | ED.GENADULT ---
HPI - General Adult <Valentine Reardon MD - Last Filed: 03/10/23 07:55> General Chief complaint: Diabetic Problem Stated complaint: High Blood Sugar Time Seen by Provider: 02/27/23 14:12 Source: EMS Mode of arrival: EMS History of Present Illness HPI narrative: 77-year-old male with history of insulin-dependent diabetes, CVA with residual right-sided paralysis presents by EMS from his [facility] facility for elevated blood sugars. Patient had an episode of nausea and vomiting earlier this morning and when they checked his blood sugars it was elevated beyond what they are allowed to treat at the nursing facility and so they transferred him to the ER for evaluation. Patient states ?I do not feel well? when asked what his symptoms are, but he can not specify other than that he does not feel well. Related Data Home Medications Medication Instructions Recorded Confirmed aspirin 81 mg tablet,delayed 81 mg PO QDAY ##0 05/04/16 02/27/23 release bumetanide 1 mg tablet 1.5 mg PO BID ##0 05/04/16 02/27/23 clopidogrel 75 mg tablet 75 mg PO QDAY ##0 05/04/16 02/27/23 insulin aspart U-100 100 unit/mL See Rx Instructions .Route 05/04/16 02/27/23 subcutaneous cartridge (Novolog .COMPLEX ##0 PenFill U-100 Insulin aspart) magnesium hydroxide 2,400 mg/10 mL 30 ml PO DAILY PRN Constipation ##0 05/04/16 02/27/23 oral suspension (Milk Of Magnesia Concentrated) polyethylene glycol 3350 17 17 g PO DAILY ##0 05/04/16 02/27/23 gram/dose oral powder (Miralax) potassium chloride 8 mEq 40 meq PO DAILY ##0 05/04/16 02/27/23 tablet,extended release (Klor-Con) docusate sodium 100 mg tablet 100 mg PO DAILY 10/26/18 02/27/23 metformin 500 mg tablet 1,000 mg PO BID 10/26/18 02/27/23 oxycodone 5 mg tablet 5 mg Q6H PRN Pain (Scale Score 4-6) 10/26/18 02/27/23 lisinopril 2.5 mg tablet 2.5 mg PO DAILY 02/27/23 02/27/23 tamsulosin 0.4 mg capsule 0.4 mg PO BEDTIME 02/27/23 02/27/23 Previous Rx's Medication Instructions Recorded insulin glargine 100 unit/mL (3 40 unit (0.4 mL) SUBCUT BEDTIME 03/04/23 mL) subcutaneous pen (Lantus #10 mL Solostar U-100 Insulin) insulin lispro 100 unit/mL 5 unit (0.05 mL) SUBCUT AC #10 mL 03/04/23 subcutaneous solution (Humalog U-100 Insulin) metoprolol succinate 25 mg 12.5 mg (1/2 x 25 mg) PO DAILY #10 03/04/23 tablet,extended release 24 hr tabs pantoprazole 40 mg tablet,delayed 40 mg PO BID #60 tabs 03/04/23 release Allergies Allergy/AdvReac Type Severity Reaction Status Date / Time ciprofloxacin [From CIPRO] Allergy Unknown Verified 03/06/23 11:16 doxylamine [DOXYLAMINE] Allergy Unknown Verified 03/06/23 11:16 Sulfa (Sulfonamide Allergy Unknown Verified 03/06/23 11:16 Antibiotics) [SULFA (SULFONAMIDE ANTIBIOTICS)] vancomycin [From VANCOCIN] Allergy Unknown Verified 03/06/23 11:16 doxycycline Allergy Verified 03/06/23 11:16 Penicillins Allergy Verified 03/06/23 11:16 Review of Systems <Valentine Reardon MD - Last Filed: 03/10/23 07:55> Review of Systems Narrative: Negative except as noted above. Patient History <Valentine Reardon MD - Last Filed: 03/10/23 07:55> Medical History BPH (benign prostatic hyperplasia) CAD (coronary artery disease) HTN (hypertension) Diabetes type 2, uncontrolled Hemiparesis 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 Social History (System 03/06/23 @ 11:16 by Lina Schulz) household members: none Smoking Status: Never smoker alcohol intake: current Smoking Status: Never smoker alcohol intake frequency: holidays/special occasions only Substance Use Type: does not use Exam <Valentine Reardon MD - Last Filed: 03/10/23 07:55> Initial Vital Signs Initial Vital Signs: Vital Signs Temperature 98.2 F 02/27/23 14:13 Pulse Rate 109 H 02/27/23 14:13 Respiratory Rate 20 02/27/23 14:13 Blood Pressure 118/72 02/27/23 14:13 Pulse Oximetry 95 02/27/23 14:13 Oxygen Delivery Method Room Air 02/27/23 14:13 Const: Awake, alert, debilitated, appears chronically unwell Eyes: PERRL, EOMI, conjunctiva normal ENT: Atraumatic, dentition normal, mucous membranes moist Cardiac: Tachycardia, regular rhythm RESP: unlabored, clear bilaterally, no wheezing GI: Atraumatic, soft, nontender, nondistended, no rebound, no guarding MSK: Atraumatic, full range of motion, pulses equal Skin: Warm, Dry, intact, no rashes Neuro: AO x3, CN II-XII grossly intact, right-sided paralysis, chronic <Kosta Farfan DO - Last Filed: 02/27/23 21:52> Initial Vital Signs Initial Vital Signs: Vital Signs Temperature 98.2 F 02/27/23 14:13 Pulse Rate 109 H 02/27/23 14:13 Respiratory Rate 20 02/27/23 14:13 Blood Pressure 118/72 02/27/23 14:13 Pulse Oximetry 95 02/27/23 14:13 Oxygen Delivery Method Room Air 02/27/23 14:13 Course <Valentine Reardon MD - Last Filed: 03/10/23 07:55> Course Course Narrative: Elevated blood sugars with tachycardia. Initial laboratory work is significant for leukocytosis and lactic acidosis. Broad workup to include possible sepsis with blood cultures, procalcitonin. Patient given IV fluids and we will continue to monitor. Empiric Rocephin ordered for coverage. Orders Ordered: Discontinued Medications Acetaminophen (Acetaminophen 325 Mg Tablet) 650 mg PO Q6H PRN PRN Reason: Fever/Mild Pain (1-3) Last Admin: 02/28/23 20:34 Dose: 650 mg Documented By: FR Acetaminophen (Acetaminophen 325 Mg Tablet) 650 mg PO Q4H PRN PRN Reason: Fever/Mild Pain (1-3) Last Admin: 03/03/23 20:30 Dose: 650 mg Documented By: Admin: 03/02/23 20:47 Dose: 650 mg Documented By: FR Aspirin (Aspirin Ec 81 Mg Tablet) 81 mg PO DAILY [facility] Last Admin: 02/28/23 08:52 Dose: 81 mg Documented By: GAURAV Bisacodyl (Bisacodyl 10 Mg Supp) 10 mg HI DAILY PRN PRN Reason: Constipation Bumetanide (Bumetanide 1 Mg Tablet) 1.5 mg PO BID [facility] Last Admin: 03/04/23 09:14 Dose: Not Given Documented By: Admin: 03/03/23 20:30 Dose: 1.5 mg Documented By: Admin: 03/03/23 08:28 Dose: 1.5 mg Documented By: Admin: 03/02/23 20:46 Dose: 1.5 mg Documented By: Bumetanide (Bumetanide 1 Mg Tablet) 1.5 mg PO NOW ONE Stop: 03/02/23 11:02 Last Admin: 03/02/23 11:11 Dose: 1.5 mg Documented By: Clopidogrel Bisulfate (Clopidogrel 75 Mg Tablet) 75 mg PO DAILY [facility] Last Admin: 02/28/23 08:52 Dose: 75 mg Documented By: GAURAV Docusate Sodium (Docusate 100 Mg Capsule) 100 mg PO DAILY [facility] Last Admin: 03/04/23 09:14 Dose: Not Given Documented By: Admin: 03/03/23 08:01 Dose: Not Given Documented By: Admin: 03/02/23 08:15 Dose: Not Given Documented By: Admin: 03/01/23 09:16 Dose: Not Given Documented By: Admin: 02/28/23 08:52 Dose: 100 mg Documented By: GAURAV Enoxaparin Sodium (Enoxaparin 30 Mg/0.3 Ml Syringe) 30 mg SUBCUT DAILY [facility] Last Admin: 02/28/23 08:54 Dose: 30 mg Documented By: GAURAV Enoxaparin Sodium (Enoxaparin 40 Mg/0.4 Ml Syringe) 40 mg SUBCUT DAILY [facility] Last Admin: 03/02/23 07:32 Dose: Not Given Documented By: Admin: 03/01/23 08:51 Dose: 40 mg Documented By: GUERRERO Sodium Chloride (Normal Saline 0.9%) 1,000 mls @ 1,000 mls/hr IV BOLUS ONE Stop: 02/27/23 15:20 Last Infusion: 02/27/23 15:14 Dose: Infused Documented By: Admin: 02/27/23 14:23 Dose: 1,000 mls/hr Documented By: AMV Sodium Chloride (Normal Saline 0.9%) 1,000 mls @ 1,000 mls/hr IV BOLUS ONE Stop: 02/27/23 16:38 Last Infusion: 02/27/23 16:30 Dose: Infused Documented By: Admin: 02/27/23 15:54 Dose: 1,000 mls/hr Documented By: SPF Ceftriaxone Sodium 1,000 mg/ (Sodium Chloride) 100 mls @ 200 mls/hr IV NOW ONE Stop: 02/27/23 15:42 Last Infusion: 02/27/23 16:34 Dose: Infused Documented By: Admin: 02/27/23 15:57 Dose: 200 mls/hr Documented By: SPF Sodium Chloride (Normal Saline 0.9%) 1,000 mls @ 125 mls/hr IV CONT [facility]IS Last Infusion: 02/28/23 19:00 Dose: Infused Documented By: Admin: 02/28/23 10:52 Dose: 125 mls/hr Documented By: Infusion: 02/28/23 10:38 Dose: Infused Documented By: Admin: 02/28/23 02:38 Dose: 125 mls/hr Documented By: Infusion: 02/28/23 02:38 Dose: Infused Documented By: Admin: 02/27/23 18:40 Dose: 125 mls/hr Documented By: SPF Ceftriaxone Sodium 1,000 mg/ (Sodium Chloride) 100 mls @ 200 mls/hr IV Q24H [facility] Stop: 03/05/23 20:29 Last Infusion: 03/03/23 21:30 Dose: Infused Documented By: Admin: 03/03/23 20:30 Dose: 100 mls/hr Documented By: Infusion: 03/02/23 21:45 Dose: Infused Documented By: Admin: 03/02/23 20:45 Dose: 100 mls/hr Documented By: Infusion: 03/01/23 21:45 Dose: Infused Documented By: Admin: 03/01/23 20:45 Dose: 100 mls/hr Documented By: Infusion: 02/28/23 21:45 Dose: Infused Documented By: Admin: 02/28/23 20:34 Dose: 100 mls/hr Documented By: FR Dextrose (D10w) 100 mls @ 1,200 mls/hr IV PRN PRN PRN Reason: Hypoglycemia Lactated Ringer's (Lactated Ringers) 1,000 mls @ 42 mls/hr IV CONT [facility] Last Infusion: 03/02/23 10:06 Dose: 42 mls/hr Documented By: Admin: 03/02/23 09:30 Dose: 42 mls/hr Documented By: CG POTASSIUM CHLORIDE IN WATER (Potassium Cl 10 Meq/100 Ml Cheryle) 10 meq in 100 mls @ 100 mls/hr IV Q1H [facility] Stop: 03/04/23 12:29 Last Admin: 03/04/23 11:52 Dose: 100 mls/hr Documented By: Infusion: 03/04/23 11:52 Dose: Infused Documented By: Admin: 03/04/23 11:00 Dose: 100 mls/hr Documented By: Infusion: 03/04/23 11:00 Dose: Infused Documented By: Admin: 03/04/23 10:13 Dose: 100 mls/hr Documented By: Infusion: 03/04/23 10:13 Dose: Infused Documented By: Admin: 03/04/23 09:14 Dose: 100 mls/hr Documented By: SAURAV Insulin Glargine (Insulin Glargine 100 Unit/Ml 3ml Pen) 40 unit SUBCUT BEDTIME [facility] Last Admin: 02/28/23 20:48 Dose: 40 unit Documented By: Co-signed By: CARLOS Insulin Glargine (Insulin Glargine 100 Unit/Ml 3ml Pen) 45 unit SUBCUT BEDTIME [facility] Last Admin: 03/02/23 20:56 Dose: 45 unit Documented By: Co-signed By: BRENDA Admin: 03/01/23 20:45 Dose: 45 unit Documented By: Co-signed By: CARLOS Insulin Glargine (Insulin Glargine 100 Unit/Ml 3ml Pen) 40 unit SUBCUT BEDTIME [facility] Last Admin: 03/03/23 20:53 Dose: 40 unit Documented By: Co-signed By: BRENDA Insulin Human Lispro (Insulin Lispro 100 Unit/Ml 3ml Vial) 9 unit SUBCUT AC [facility] Insulin Human Lispro (Insulin Lispro 100 Unit/Ml 3ml Vial) 9 unit SUBCUT AC [facility] Last Admin: 02/27/23 19:02 Dose: Not Given Documented By: SPF Insulin Human Lispro (Insulin Lispro 100 Unit/Ml 3ml Vial) 9 unit SUBCUT NOW ONE Stop: 02/27/23 18:47 Last Admin: 02/27/23 18:51 Dose: 9 unit Documented By: SPF Co-signed By: JENNIFER Insulin Human Lispro (Insulin Lispro 100 Unit/Ml 3ml Vial) 0 unit SUBCUT ACHS [facility]; Protocol Last Admin: 03/04/23 12:47 Dose: Not Given Documented By: Admin: 03/04/23 07:53 Dose: Not Given Documented By: Admin: 03/03/23 20:54 Dose: Not Given Documented By: Admin: 03/03/23 17:27 Dose: 2 unit Documented By: SAURAV Co-signed By: SISI Admin: 03/03/23 12:54 Dose: Not Given Documented By: Admin: 03/03/23 07:58 Dose: Not Given Documented By: Admin: 03/02/23 20:55 Dose: 7 unit Documented By: Co-signed By: BRENDA Admin: 03/02/23 17:09 Dose: 2 unit Documented By: Co-signed By: GENESIS Admin: 03/02/23 11:07 Dose: Not Given Documented By: Admin: 03/02/23 07:31 Dose: Not Given Documented By: Admin: 03/01/23 20:45 Dose: 2 unit Documented By: Co-signed By: CARLOS Admin: 03/01/23 17:23 Dose: 4 unit Documented By: GUERRERO Co-signed By: Admin: 03/01/23 12:04 Dose: 4 unit Documented By: GB Co-signed By: MS Admin: 03/01/23 08:12 Dose: 4 unit Documented By: MS Co-signed By: SIDNEY Admin: 02/28/23 20:45 Dose: 5 unit Documented By: Co-signed By: CARLOS Admin: 02/28/23 16:54 Dose: 7 unit Documented By: GAURAV Co-signed By: AZUL Admin: 02/28/23 11:45 Dose: 12 unit Documented By: GAURAV Co-signed By: AZUL Admin: 02/28/23 08:23 Dose: 10 unit Documented By: GAURAV Co-signed By: AZUL Admin: 02/27/23 22:37 Dose: 10 unit Documented By: Co-signed By: BRENDA Insulin Human Lispro (Insulin Lispro 100 Unit/Ml 3ml Vial) 5 unit SUBCUT AC [facility] Last Admin: 03/04/23 12:47 Dose: Not Given Documented By: Admin: 03/04/23 08:14 Dose: 5 unit Documented By: Co-signed By: SAURAV Admin: 03/03/23 17:27 Dose: 5 unit Documented By: SAURAV Co-signed By: LDV Admin: 03/03/23 13:28 Dose: 5 unit Documented By: SAURAV Co-signed By: CHARLOTTEV Insulin Human NPH (Insulin Nph 100 Unit/Ml 10ml Vial) 22 unit SUBCUT BID [facility] Last Admin: 02/28/23 09:08 Dose: 22 unit Documented By: GAURAV Co-signed By: AZUL Magnesium Chloride (Magnesium Chloride 64 Mg Tablet) 128 mg PO NOW ONE Stop: 03/03/23 09:31 Last Admin: 03/03/23 09:41 Dose: 128 mg Documented By: SAURAV Melatonin (Melatonin 3 Mg Tablet) 9 mg PO BEDTIME PRN PRN Reason: Insomnia Last Admin: 03/03/23 20:30 Dose: 9 mg Documented By: Admin: 03/02/23 20:47 Dose: 9 mg Documented By: Admin: 03/01/23 20:45 Dose: 9 mg Documented By: Metoprolol Succinate (Metoprolol Er 25 Mg Tablet) 12.5 mg PO DAILY [facility] Last Admin: 03/04/23 09:15 Dose: 12.5 mg Documented By: Admin: 03/03/23 08:28 Dose: 12.5 mg Documented By: Admin: 03/02/23 11:10 Dose: 12.5 mg Documented By: Naloxone HCl (Naloxone 0.4 Mg/Ml Vial) 0.2 mg IV Q2MIN PRN PRN Reason: Opiate Reversal Ondansetron HCl (Ondansetron 4 Mg/2 Ml Inj) 4 mg IV Q2HR PRN PRN Reason: nausea Ondansetron HCl (Ondansetron 4 Mg Odt) 4 mg PO Q4HR PRN PRN Reason: nausea Ondansetron HCl (Ondansetron 4 Mg/2 Ml Inj) 4 mg IV Q4HR PRN PRN Reason: Nausea And Vomiting Oxycodone/Acetaminophen (Oxycodone/Acetaminophen 5/325 Tablet) 1 tab PO Q4HR PRN PRN Reason: Pain, Moderate (4-6) Last Admin: 03/04/23 10:13 Dose: 1 tab Documented By: Admin: 03/03/23 20:30 Dose: 1 tab Documented By: Admin: 03/02/23 20:47 Dose: 1 tab Documented By: Admin: 03/02/23 17:09 Dose: 1 tab Documented By: Admin: 03/02/23 08:14 Dose: 1 tab Documented By: Admin: 03/01/23 20:45 Dose: 1 tab Documented By: Pantoprazole Sodium (Pantoprazole 40 Mg Vial) 80 mg IV NOW ONE Stop: 02/28/23 14:47 Last Admin: 02/28/23 15:19 Dose: 80 mg Documented By: GAURAV Pantoprazole Sodium (Pantoprazole 40 Mg Vial) 40 mg IV BID [facility] Last Admin: 03/04/23 09:15 Dose: 40 mg Documented By: Admin: 03/03/23 20:30 Dose: 40 mg Documented By: Admin: 03/03/23 08:27 Dose: 40 mg Documented By: Admin: 03/02/23 20:46 Dose: 40 mg Documented By: Admin: 03/02/23 08:14 Dose: 40 mg Documented By: Admin: 03/01/23 20:45 Dose: 40 mg Documented By: Admin: 03/01/23 08:53 Dose: 40 mg Documented By: Admin: 02/28/23 20:35 Dose: 40 mg Documented By: Potassium Chloride (Potassium Chloride 20 Meq Tab) 40 meq PO NOW ONE Stop: 03/02/23 07:41 Last Admin: 03/02/23 08:14 Dose: 40 meq Documented By: Potassium Chloride (Potassium Chloride 20 Meq Tab) 40 meq PO NOW ONE Stop: 03/03/23 07:45 Last Admin: 03/03/23 08:27 Dose: 40 meq Documented By: SAURAV Potassium Chloride (Potassium Chloride 20 Meq Tab) 40 meq PO 1430 ONE Stop: 03/03/23 14:31 Last Admin: 03/03/23 13:32 Dose: 40 meq Documented By: SAURAV Potassium Chloride (Potassium Chloride 20 Meq Tab) 40 meq PO TIDWM [facility] Last Admin: 03/04/23 12:49 Dose: 40 meq Documented By: Sennosides (Sennosides 8.6 Mg Tablet) 17.2 mg PO BEDTIME [facility] Last Admin: 03/03/23 20:30 Dose: 17.2 mg Documented By: Admin: 03/02/23 20:46 Dose: 17.2 mg Documented By: Admin: 03/01/23 20:45 Dose: 17.2 mg Documented By: Admin: 02/28/23 20:34 Dose: 17.2 mg Documented By: Admin: 02/27/23 22:31 Dose: Not Given Documented By: Tamsulosin HCl (Tamsulosin 0.4 Mg Capsule) 0.4 mg PO BEDTIME [facility] Last Admin: 03/03/23 20:30 Dose: 0.4 mg Documented By: Admin: 03/02/23 20:46 Dose: 0.4 mg Documented By: Admin: 03/01/23 20:45 Dose: 0.4 mg Documented By: Admin: 02/28/23 20:35 Dose: 0.4 mg Documented By: Reevaluation(s) Reevaluation #1: Laboratory work is reviewed. Still pending urinalysis. Patient refused a straight cath. Care of patient signed to Dr. Farfan at 1800 Vital Signs Vital signs: Vital Signs - 8 hr 02/27/23 14:13 02/27/23 14:15 02/27/23 14:16 Temperature 98.2 F Pulse Rate 109 H 113 H Respiratory Rate 20 Blood Pressure 118/72 118/72 Pulse Oximetry 95 94 Oxygen Delivery Method Room Air 02/27/23 14:16 02/27/23 14:30 02/27/23 14:30 Temperature Pulse Rate 110 H 108 H Respiratory Rate 29 H Blood Pressure 132/67 Pulse Oximetry 95 94 Oxygen Delivery Method Room Air 02/27/23 15:00 02/27/23 15:00 02/27/23 15:30 Temperature Pulse Rate 96 H Respiratory Rate 20 Blood Pressure 103/58 L 100/68 Pulse Oximetry 95 Oxygen Delivery Method Room Air 02/27/23 15:30 02/27/23 16:00 02/27/23 16:00 Temperature 97.5 F L Pulse Rate 104 H 101 H Respiratory Rate 25 H Blood Pressure 110/76 Pulse Oximetry 94 95 Oxygen Delivery Method Room Air 02/27/23 16:16 02/27/23 16:16 02/27/23 16:19 Temperature Pulse Rate 91 H Respiratory Rate 21 Blood Pressure 114/66 Pulse Oximetry 94 93 Oxygen Delivery Method Room Air Room Air 02/27/23 16:30 02/27/23 16:31 02/27/23 16:31 Temperature Pulse Rate 92 H 92 H Respiratory Rate 23 22 Blood Pressure 109/60 Pulse Oximetry 95 95 Oxygen Delivery Method 02/27/23 16:45 02/27/23 16:45 02/27/23 17:00 Temperature Pulse Rate 97 H 101 H Respiratory Rate 22 23 Blood Pressure 102/59 L Pulse Oximetry 96 95 Oxygen Delivery Method Room Air 02/27/23 17:00 02/27/23 17:15 02/27/23 17:15 Temperature Pulse Rate 110 H Respiratory Rate 25 H Blood Pressure 104/66 108/70 Pulse Oximetry Oxygen Delivery Method 02/27/23 17:30 02/27/23 17:30 02/27/23 17:45 Temperature Pulse Rate 108 H Respiratory Rate 25 H Blood Pressure 101/73 100/68 Pulse Oximetry 96 Oxygen Delivery Method Room Air 02/27/23 17:45 02/27/23 18:00 02/27/23 18:00 Temperature Pulse Rate 109 H 108 H Respiratory Rate 28 H 30 H Blood Pressure 96/62 Pulse Oximetry 95 96 Oxygen Delivery Method Room Air 02/27/23 18:15 02/27/23 18:15 02/27/23 18:30 Temperature Pulse Rate 116 H Respiratory Rate 28 H Blood Pressure 98/78 101/71 Pulse Oximetry 96 Oxygen Delivery Method Room Air 02/27/23 18:30 02/27/23 18:45 02/27/23 18:45 Temperature Pulse Rate 110 H 114 H Respiratory Rate 32 H 34 H Blood Pressure 106/73 Pulse Oximetry 96 96 Oxygen Delivery Method Room Air 02/27/23 19:00 02/27/23 19:00 02/27/23 19:02 Temperature Pulse Rate 114 H Respiratory Rate 35 H Blood Pressure 92/63 101/65 Pulse Oximetry 96 Oxygen Delivery Method 02/27/23 19:02 02/27/23 19:15 02/27/23 19:15 Temperature Pulse Rate 114 H 115 H Respiratory Rate 35 H 30 H Blood Pressure 99/67 Pulse Oximetry 96 96 Oxygen Delivery Method Room Air 02/27/23 19:30 02/27/23 19:30 02/27/23 19:45 Temperature Pulse Rate 111 H Respiratory Rate 31 H Blood Pressure 98/60 101/61 Pulse Oximetry 96 Oxygen Delivery Method 02/27/23 19:45 Temperature Pulse Rate 114 H Respiratory Rate 33 H Blood Pressure Pulse Oximetry 96 Oxygen Delivery Method <Kosta Farfan, DO - Last Filed: 02/27/23 21:52> Orders Ordered: Discontinued Medications Acetaminophen (Acetaminophen 325 Mg Tablet) 650 mg PO Q6H PRN PRN Reason: Fever/Mild Pain (1-3) Last Admin: 02/28/23 20:34 Dose: 650 mg Documented By: Acetaminophen (Acetaminophen 325 Mg Tablet) 650 mg PO Q4H PRN PRN Reason: Fever/Mild Pain (1-3) Last Admin: 03/03/23 20:30 Dose: 650 mg Documented By: Admin: 03/02/23 20:47 Dose: 650 mg Documented By: Aspirin (Aspirin Ec 81 Mg Tablet) 81 mg PO DAILY [facility] Last Admin: 02/28/23 08:52 Dose: 81 mg Documented By: GAURAV Bisacodyl (Bisacodyl 10 Mg Supp) 10 mg HI DAILY PRN PRN Reason: Constipation Bumetanide (Bumetanide 1 Mg Tablet) 1.5 mg PO BID [facility] Last Admin: 03/04/23 09:14 Dose: Not Given Documented By: Admin: 03/03/23 20:30 Dose: 1.5 mg Documented By: Admin: 03/03/23 08:28 Dose: 1.5 mg Documented By: Admin: 03/02/23 20:46 Dose: 1.5 mg Documented By: Bumetanide (Bumetanide 1 Mg Tablet) 1.5 mg PO NOW ONE Stop: 03/02/23 11:02 Last Admin: 03/02/23 11:11 Dose: 1.5 mg Documented By: Clopidogrel Bisulfate (Clopidogrel 75 Mg Tablet) 75 mg PO DAILY [facility] Last Admin: 02/28/23 08:52 Dose: 75 mg Documented By: GAURAV Docusate Sodium (Docusate 100 Mg Capsule) 100 mg PO DAILY [facility] Last Admin: 03/04/23 09:14 Dose: Not Given Documented By: Admin: 03/03/23 08:01 Dose: Not Given Documented By: Admin: 03/02/23 08:15 Dose: Not Given Documented By: Admin: 03/01/23 09:16 Dose: Not Given Documented By: Admin: 02/28/23 08:52 Dose: 100 mg Documented By: CW Enoxaparin Sodium (Enoxaparin 30 Mg/0.3 Ml Syringe) 30 mg SUBCUT DAILY [facility] Last Admin: 02/28/23 08:54 Dose: 30 mg Documented By: CW Enoxaparin Sodium (Enoxaparin 40 Mg/0.4 Ml Syringe) 40 mg SUBCUT DAILY [facility] Last Admin: 03/02/23 07:32 Dose: Not Given Documented By: Admin: 03/01/23 08:51 Dose: 40 mg Documented By: GB Sodium Chloride (Normal Saline 0.9%) 1,000 mls @ 1,000 mls/hr IV BOLUS ONE Stop: 02/27/23 15:20 Last Infusion: 02/27/23 15:14 Dose: Infused Documented By: Admin: 02/27/23 14:23 Dose: 1,000 mls/hr Documented By: AMV Sodium Chloride (Normal Saline 0.9%) 1,000 mls @ 1,000 mls/hr IV BOLUS ONE Stop: 02/27/23 16:38 Last Infusion: 02/27/23 16:30 Dose: Infused Documented By: Admin: 02/27/23 15:54 Dose: 1,000 mls/hr Documented By: SPF Ceftriaxone Sodium 1,000 mg/ (Sodium Chloride) 100 mls @ 200 mls/hr IV NOW ONE Stop: 02/27/23 15:42 Last Infusion: 02/27/23 16:34 Dose: Infused Documented By: Admin: 02/27/23 15:57 Dose: 200 mls/hr Documented By: SPF Sodium Chloride (Normal Saline 0.9%) 1,000 mls @ 125 mls/hr IV CONT [facility] Last Infusion: 02/28/23 19:00 Dose: Infused Documented By: Admin: 02/28/23 10:52 Dose: 125 mls/hr Documented By: Infusion: 02/28/23 10:38 Dose: Infused Documented By: Admin: 02/28/23 02:38 Dose: 125 mls/hr Documented By: Infusion: 02/28/23 02:38 Dose: Infused Documented By: Admin: 02/27/23 18:40 Dose: 125 mls/hr Documented By: SPF Ceftriaxone Sodium 1,000 mg/ (Sodium Chloride) 100 mls @ 200 mls/hr IV Q24H [facility] Stop: 03/05/23 20:29 Last Infusion: 03/03/23 21:30 Dose: Infused Documented By: Admin: 03/03/23 20:30 Dose: 100 mls/hr Documented By: Infusion: 03/02/23 21:45 Dose: Infused Documented By: Admin: 03/02/23 20:45 Dose: 100 mls/hr Documented By: Infusion: 03/01/23 21:45 Dose: Infused Documented By: Admin: 03/01/23 20:45 Dose: 100 mls/hr Documented By: Infusion: 02/28/23 21:45 Dose: Infused Documented By: Admin: 02/28/23 20:34 Dose: 100 mls/hr Documented By: FR Dextrose (D10w) 100 mls @ 1,200 mls/hr IV PRN PRN PRN Reason: Hypoglycemia Lactated Ringer's (Lactated Ringers) 1,000 mls @ 42 mls/hr IV CONT [facility] Last Infusion: 03/02/23 10:06 Dose: 42 mls/hr Documented By: Admin: 03/02/23 09:30 Dose: 42 mls/hr Documented By: CG POTASSIUM CHLORIDE IN WATER (Potassium Cl 10 Meq/100 Ml Cheryle) 10 meq in 100 mls @ 100 mls/hr IV Q1H [facility] Stop: 03/04/23 12:29 Last Admin: 03/04/23 11:52 Dose: 100 mls/hr Documented By: Infusion: 03/04/23 11:52 Dose: Infused Documented By: Admin: 03/04/23 11:00 Dose: 100 mls/hr Documented By: Infusion: 03/04/23 11:00 Dose: Infused Documented By: Admin: 03/04/23 10:13 Dose: 100 mls/hr Documented By: Infusion: 03/04/23 10:13 Dose: Infused Documented By: Admin: 03/04/23 09:14 Dose: 100 mls/hr Documented By: SAURAV Insulin Glargine (Insulin Glargine 100 Unit/Ml 3ml Pen) 40 unit SUBCUT BEDTIME [facility] Last Admin: 02/28/23 20:48 Dose: 40 unit Documented By: Co-signed By: CARLOS Insulin Glargine (Insulin Glargine 100 Unit/Ml 3ml Pen) 45 unit SUBCUT BEDTIME [facility] Last Admin: 03/02/23 20:56 Dose: 45 unit Documented By: Co-signed By: BRENDA Admin: 03/01/23 20:45 Dose: 45 unit Documented By: Co-signed By: CARLOS Insulin Glargine (Insulin Glargine 100 Unit/Ml 3ml Pen) 40 unit SUBCUT BEDTIME [facility] Last Admin: 03/03/23 20:53 Dose: 40 unit Documented By: Co-signed By: BRENDA Insulin Human Lispro (Insulin Lispro 100 Unit/Ml 3ml Vial) 9 unit SUBCUT AC [facility] Insulin Human Lispro (Insulin Lispro 100 Unit/Ml 3ml Vial) 9 unit SUBCUT AC [facility] Last Admin: 02/27/23 19:02 Dose: Not Given Documented By: OMAR Insulin Human Lispro (Insulin Lispro 100 Unit/Ml 3ml Vial) 9 unit SUBCUT NOW ONE Stop: 02/27/23 18:47 Last Admin: 02/27/23 18:51 Dose: 9 unit Documented By: OMAR Co-signed By: JENNIFER Insulin Human Lispro (Insulin Lispro 100 Unit/Ml 3ml Vial) 0 unit SUBCUT [facility]; Protocol Last Admin: 03/04/23 12:47 Dose: Not Given Documented By: Admin: 03/04/23 07:53 Dose: Not Given Documented By: Admin: 03/03/23 20:54 Dose: Not Given Documented By: Admin: 03/03/23 17:27 Dose: 2 unit Documented By: SAURAV Co-signed By: SISI Admin: 03/03/23 12:54 Dose: Not Given Documented By: Admin: 03/03/23 07:58 Dose: Not Given Documented By: Admin: 03/02/23 20:55 Dose: 7 unit Documented By: Co-signed By: BRENDA Admin: 03/02/23 17:09 Dose: 2 unit Documented By: Co-signed By: GENESIS Admin: 03/02/23 11:07 Dose: Not Given Documented By: Admin: 03/02/23 07:31 Dose: Not Given Documented By: Admin: 03/01/23 20:45 Dose: 2 unit Documented By: Co-signed By: CARLOS Admin: 03/01/23 17:23 Dose: 4 unit Documented By: GUERRERO Co-signed By: Admin: 03/01/23 12:04 Dose: 4 unit Documented By: GUERRERO Co-signed By: Admin: 03/01/23 08:12 Dose: 4 unit Documented By: Co-signed By: SIDNEY Admin: 02/28/23 20:45 Dose: 5 unit Documented By: Co-signed By: CARLOS Admin: 02/28/23 16:54 Dose: 7 unit Documented By: GAURAV Co-signed By: AZUL Admin: 02/28/23 11:45 Dose: 12 unit Documented By: GAURAV Co-signed By: AZUL Admin: 02/28/23 08:23 Dose: 10 unit Documented By: GAURAV Co-signed By: AZUL Admin: 02/27/23 22:37 Dose: 10 unit Documented By: Co-signed By: BRENDA Insulin Human Lispro (Insulin Lispro 100 Unit/Ml 3ml Vial) 5 unit SUBCUT AC [facility] Last Admin: 03/04/23 12:47 Dose: Not Given Documented By: Admin: 03/04/23 08:14 Dose: 5 unit Documented By: Co-signed By: SAURAV Admin: 03/03/23 17:27 Dose: 5 unit Documented By: SAURAV Co-signed By: SISI Admin: 03/03/23 13:28 Dose: 5 unit Documented By: SAURAV Co-signed By: SISI Insulin Human NPH (Insulin Nph 100 Unit/Ml 10ml Vial) 22 unit SUBCUT BID [facility] Last Admin: 02/28/23 09:08 Dose: 22 unit Documented By: GAURAV Co-signed By: AZUL Magnesium Chloride (Magnesium Chloride 64 Mg Tablet) 128 mg PO NOW ONE Stop: 03/03/23 09:31 Last Admin: 03/03/23 09:41 Dose: 128 mg Documented By: SAURAV Melatonin (Melatonin 3 Mg Tablet) 9 mg PO BEDTIME PRN PRN Reason: Insomnia Last Admin: 03/03/23 20:30 Dose: 9 mg Documented By: Admin: 03/02/23 20:47 Dose: 9 mg Documented By: Admin: 03/01/23 20:45 Dose: 9 mg Documented By: Metoprolol Succinate (Metoprolol Er 25 Mg Tablet) 12.5 mg PO DAILY [facility] Last Admin: 03/04/23 09:15 Dose: 12.5 mg Documented By: Admin: 03/03/23 08:28 Dose: 12.5 mg Documented By: Admin: 03/02/23 11:10 Dose: 12.5 mg Documented By: Naloxone HCl (Naloxone 0.4 Mg/Ml Vial) 0.2 mg IV Q2MIN PRN PRN Reason: Opiate Reversal Ondansetron HCl (Ondansetron 4 Mg/2 Ml Inj) 4 mg IV Q2HR PRN PRN Reason: nausea Ondansetron HCl (Ondansetron 4 Mg Odt) 4 mg PO Q4HR PRN PRN Reason: nausea Ondansetron HCl (Ondansetron 4 Mg/2 Ml Inj) 4 mg IV Q4HR PRN PRN Reason: Nausea And Vomiting Oxycodone/Acetaminophen (Oxycodone/Acetaminophen 5/325 Tablet) 1 tab PO Q4HR PRN PRN Reason: Pain, Moderate (4-6) Last Admin: 03/04/23 10:13 Dose: 1 tab Documented By: Admin: 03/03/23 20:30 Dose: 1 tab Documented By: Admin: 03/02/23 20:47 Dose: 1 tab Documented By: Admin: 03/02/23 17:09 Dose: 1 tab Documented By: Admin: 03/02/23 08:14 Dose: 1 tab Documented By: Admin: 03/01/23 20:45 Dose: 1 tab Documented By: Pantoprazole Sodium (Pantoprazole 40 Mg Vial) 80 mg IV NOW ONE Stop: 02/28/23 14:47 Last Admin: 02/28/23 15:19 Dose: 80 mg Documented By: GAURAV Pantoprazole Sodium (Pantoprazole 40 Mg Vial) 40 mg IV BID [facility] Last Admin: 03/04/23 09:15 Dose: 40 mg Documented By: Admin: 03/03/23 20:30 Dose: 40 mg Documented By: Admin: 03/03/23 08:27 Dose: 40 mg Documented By: Admin: 03/02/23 20:46 Dose: 40 mg Documented By: Admin: 03/02/23 08:14 Dose: 40 mg Documented By: Admin: 03/01/23 20:45 Dose: 40 mg Documented By: Admin: 03/01/23 08:53 Dose: 40 mg Documented By: Admin: 02/28/23 20:35 Dose: 40 mg Documented By: Potassium Chloride (Potassium Chloride 20 Meq Tab) 40 meq PO NOW ONE Stop: 03/02/23 07:41 Last Admin: 03/02/23 08:14 Dose: 40 meq Documented By: Potassium Chloride (Potassium Chloride 20 Meq Tab) 40 meq PO NOW ONE Stop: 03/03/23 07:45 Last Admin: 03/03/23 08:27 Dose: 40 meq Documented By: SAURAV Potassium Chloride (Potassium Chloride 20 Meq Tab) 40 meq PO 1430 ONE Stop: 03/03/23 14:31 Last Admin: 03/03/23 13:32 Dose: 40 meq Documented By: SAURAV Potassium Chloride (Potassium Chloride 20 Meq Tab) 40 meq PO TIDWM [facility] Last Admin: 03/04/23 12:49 Dose: 40 meq Documented By: Sennosides (Sennosides 8.6 Mg Tablet) 17.2 mg PO BEDTIME [facility] Last Admin: 03/03/23 20:30 Dose: 17.2 mg Documented By: Admin: 03/02/23 20:46 Dose: 17.2 mg Documented By: Admin: 03/01/23 20:45 Dose: 17.2 mg Documented By: Admin: 02/28/23 20:34 Dose: 17.2 mg Documented By: Admin: 02/27/23 22:31 Dose: Not Given Documented By: Tamsulosin HCl (Tamsulosin 0.4 Mg Capsule) 0.4 mg PO BEDTIME [facility] Last Admin: 03/03/23 20:30 Dose: 0.4 mg Documented By: Admin: 03/02/23 20:46 Dose: 0.4 mg Documented By: Admin: 03/01/23 20:45 Dose: 0.4 mg Documented By: Admin: 02/28/23 20:35 Dose: 0.4 mg Documented By: FR Vital Signs Vital signs: Vital Signs - 8 hr 02/27/23 14:13 02/27/23 14:15 02/27/23 14:16 Temperature 98.2 F Pulse Rate 109 H 113 H Respiratory Rate 20 Blood Pressure 118/72 118/72 Pulse Oximetry 95 94 Oxygen Delivery Method Room Air 02/27/23 14:16 02/27/23 14:30 02/27/23 14:30 Temperature Pulse Rate 110 H 108 H Respiratory Rate 29 H Blood Pressure 132/67 Pulse Oximetry 95 94 Oxygen Delivery Method Room Air 02/27/23 15:00 02/27/23 15:00 02/27/23 15:30 Temperature Pulse Rate 96 H Respiratory Rate 20 Blood Pressure 103/58 L 100/68 Pulse Oximetry 95 Oxygen Delivery Method Room Air 02/27/23 15:30 02/27/23 16:00 02/27/23 16:00 Temperature 97.5 F L Pulse Rate 104 H 101 H Respiratory Rate 25 H Blood Pressure 110/76 Pulse Oximetry 94 95 Oxygen Delivery Method Room Air 02/27/23 16:16 02/27/23 16:16 02/27/23 16:19 Temperature Pulse Rate 91 H Respiratory Rate 21 Blood Pressure 114/66 Pulse Oximetry 94 93 Oxygen Delivery Method Room Air Room Air 02/27/23 16:30 02/27/23 16:31 02/27/23 16:31 Temperature Pulse Rate 92 H 92 H Respiratory Rate 23 22 Blood Pressure 109/60 Pulse Oximetry 95 95 Oxygen Delivery Method 02/27/23 16:45 02/27/23 16:45 02/27/23 17:00 Temperature Pulse Rate 97 H 101 H Respiratory Rate 22 23 Blood Pressure 102/59 L Pulse Oximetry 96 95 Oxygen Delivery Method Room Air 02/27/23 17:00 02/27/23 17:15 02/27/23 17:15 Temperature Pulse Rate 110 H Respiratory Rate 25 H Blood Pressure 104/66 108/70 Pulse Oximetry Oxygen Delivery Method 02/27/23 17:30 02/27/23 17:30 02/27/23 17:45 Temperature Pulse Rate 108 H Respiratory Rate 25 H Blood Pressure 101/73 100/68 Pulse Oximetry 96 Oxygen Delivery Method Room Air 02/27/23 17:45 02/27/23 18:00 02/27/23 18:00 Temperature Pulse Rate 109 H 108 H Respiratory Rate 28 H 30 H Blood Pressure 96/62 Pulse Oximetry 95 96 Oxygen Delivery Method Room Air 02/27/23 18:15 02/27/23 18:15 02/27/23 18:30 Temperature Pulse Rate 116 H Respiratory Rate 28 H Blood Pressure 98/78 101/71 Pulse Oximetry 96 Oxygen Delivery Method Room Air 02/27/23 18:30 02/27/23 18:45 02/27/23 18:45 Temperature Pulse Rate 110 H 114 H Respiratory Rate 32 H 34 H Blood Pressure 106/73 Pulse Oximetry 96 96 Oxygen Delivery Method Room Air 02/27/23 19:00 02/27/23 19:00 02/27/23 19:02 Temperature Pulse Rate 114 H Respiratory Rate 35 H Blood Pressure 92/63 101/65 Pulse Oximetry 96 Oxygen Delivery Method 02/27/23 19:02 02/27/23 19:15 02/27/23 19:15 Temperature Pulse Rate 114 H 115 H Respiratory Rate 35 H 30 H Blood Pressure 99/67 Pulse Oximetry 96 96 Oxygen Delivery Method Room Air 02/27/23 19:30 02/27/23 19:30 02/27/23 19:45 Temperature Pulse Rate 111 H Respiratory Rate 31 H Blood Pressure 98/60 101/61 Pulse Oximetry 96 Oxygen Delivery Method 02/27/23 19:45 Temperature Pulse Rate 114 H Respiratory Rate 33 H Blood Pressure Pulse Oximetry 96 Oxygen Delivery Method Medical Decision Making <Valentine Reardon MD - Last Filed: 03/10/23 07:55> Lab Data 03/04/23 04:15 03/04/23 04:15 Labs: Lab Results 02/27/23 02/27/23 02/27/23 Range/Units 14:20 14:26 14:40 WBC 16.2 H (4.5-11.0) X10^3/uL RBC 4.76 (4.5-5.9) X10^6/uL Hgb 13.9 (13.5-17.5) g/dL Hct 42.7 (41-53) % MCV 89.6 (80-100) fL MCH 29.1 (26-34) PG MCHC 32.5 (30-36) % RDW 15.7 H (11.6-14.8) % Plt Count 426 H (150-400) X10^3/uL Neut % (Auto) 64.9 (50-75) % Lymph % (Auto) 23.8 L (25-40) % Stevens % (Auto) 9.7 (3-14) % Eos % (Auto) 0.6 L (2-4) % Baso % (Auto) 1.0 (0-2) % Neut # (Auto) 18228 H (8720-4947) /uL Lymph # (Auto) 3900 (6821-8517) /uL Stevens # (Auto) 1600 H (0-900) /uL Eos # (Auto) 100 (0-450) /uL Baso # (Auto) 200 H (0-100) /uL Plt Morphology Comment RBC Morphology See below Anisocytosis 1+ H VBG pH 7.40 (7.33-7.43) VBG pCO2 30.3 L (45-50) mmHg VBG pO2 43 (35-45) mmHg VBG HCO3 19 L (24-28) mmol/L VBG Total CO2 20 L (24-29) mmol/L VBG O2 Saturation 80 H (70-75) % VBG Base Excess -6.0 L (0-4) mmol/L FiO2 21 Sodium 137 (137-145) mmol/L Potassium 5.0 (3.4-5.1) mmol/L Chloride 103 (98-107) mmol/L Carbon Dioxide 21 L (22-32) mmol/L BUN 47 H (9-20) mg/dL Creatinine 1.05 (0.66-1.25) mg/dL Estimated GFR > 60 (>60) mL/min BUN/Creatinine Ratio 44.8 H (6-22) Glucose 428 H (80-110) mg/dL Lactate 5.6 H* (0.7-2.1) mmol/L Calcium 9.8 (8.4-10.2) mg/dL Total Bilirubin 0.5 (0.2-1.3) mg/dL AST 17 (17-59) IU/L ALT 15 (<50) IU/L Alkaline Phosphatase 101 (38-126) U/L Total Protein 6.2 L (6.3-8.2) g/dL Albumin 3.4 L (3.5-5.0) g/dL Globulin 2.8 (1.7-4.1) g/dL Albumin/Globulin Ratio 1.2 (1.0-2.8) Lipase 17 L (23-300) U/L Procalcitonin 0.12 (<0.5) ng/mL Urine Color Urine Appearance Urine pH (4.5-8.0) Ur Specific [place] (1.000-1.035) Urine Protein (Negative) Urine Glucose (UA) (Negative) g/dL Urine Ketones (NEGATIVE) Urine Occult Blood (Negative) Urine Nitrate (Negative) Urine Bilirubin (NEGATIVE) Urine Urobilinogen (0.2) E.U./dL Ur Leukocyte Esterase (NEGATIVE) Urine RBC (0-5/HPF) Urine WBC (0-5/HPF) Ur Squamous Epith Cells (0-5/HPF) Urine Bacteria (None) Ur Culture Indicated? SARS-CoV-2 (PCR) Negative (Negative) Influenza A (RT-PCR) Flu a negative (NEGATIVE) Influenza B (RT-PCR) Flu b negative (NEGATIVE) RSV (PCR) Negative (Negative) 02/27/23 02/27/23 02/27/23 Range/Units 16:38 17:34 18:35 WBC 19.3 H (4.5-11.0) X10^3/uL RBC 4.24 L (4.5-5.9) X10^6/uL Hgb 12.4 L (13.5-17.5) g/dL Hct 38.0 L (41-53) % MCV 89.5 (80-100) fL MCH 29.2 (26-34) PG MCHC 32.6 (30-36) % RDW 15.5 H (11.6-14.8) % Plt Count 405 H (150-400) X10^3/uL Neut % (Auto) 77.6 H (50-75) % Lymph % (Auto) 15.5 L (25-40) % Stevens % (Auto) 6.2 (3-14) % Eos % (Auto) 0.0 L (2-4) % Baso % (Auto) 0.7 (0-2) % Neut # (Auto) 40310 H (4041-7391) /uL Lymph # (Auto) 3000 (9995-4438) /uL Stevens # (Auto) 1200 H (0-900) /uL Eos # (Auto) 0 (0-450) /uL Baso # (Auto) 100 (0-100) /uL Plt Morphology Comment RBC Morphology Anisocytosis VBG pH (7.33-7.43) VBG pCO2 (45-50) mmHg VBG pO2 (35-45) mmHg VBG HCO3 (24-28) mmol/L VBG Total CO2 (24-29) mmol/L VBG O2 Saturation (70-75) % VBG Base Excess (0-4) mmol/L FiO2 Sodium 137 (137-145) mmol/L Potassium 5.3 H (3.4-5.1) mmol/L Chloride 108 H (98-107) mmol/L Carbon Dioxide 17 L (22-32) mmol/L BUN 53 H (9-20) mg/dL Creatinine 0.97 (0.66-1.25) mg/dL Estimated GFR > 60 (>60) mL/min BUN/Creatinine Ratio 54.6 H (6-22) Glucose 379 H (80-110) mg/dL Lactate 3.4 H 4.0 H (0.7-2.1) mmol/L Calcium 9.2 (8.4-10.2) mg/dL Total Bilirubin (0.2-1.3) mg/dL AST (17-59) IU/L ALT (<50) IU/L Alkaline Phosphatase (38-126) U/L Total Protein (6.3-8.2) g/dL Albumin (3.5-5.0) g/dL Globulin (1.7-4.1) g/dL Albumin/Globulin Ratio (1.0-2.8) Lipase (23-300) U/L Procalcitonin (<0.5) ng/mL Urine Color Yellow Urine Appearance Clear Urine pH 6.0 (4.5-8.0) Ur Specific Am[place] <=1.005 (1.000-1.035) Urine Protein Negative (Negative) Urine Glucose (UA) 3+ H (Negative) g/dL Urine Ketones 1+ H (NEGATIVE) Urine Occult Blood 2+ H (Negative) Urine Nitrate Negative (Negative) Urine Bilirubin Negative (NEGATIVE) Urine Urobilinogen 1.0 (0.2) E.U./dL Ur Leukocyte Esterase Trace H (NEGATIVE) Urine RBC 30-100/hpf H (0-5/HPF) Urine WBC 5-10/hpf H (0-5/HPF) Ur Squamous Epith Cells None seen (0-5/HPF) Urine Bacteria None seen (None) Ur Culture Indicated? Specimen cultured SARS-CoV-2 (PCR) (Negative) Influenza A (RT-PCR) (NEGATIVE) Influenza B (RT-PCR) (NEGATIVE) RSV (PCR) (Negative) Point of Care Testing Glucose POC 377 Point of care testing: Point of Care Testing Glucose POC 377 <Kosta Farfan, DO - Last Filed: 02/27/23 21:52> Lab Data Labs: Lab Results 02/27/23 02/27/23 02/27/23 Range/Units 14:20 14:26 14:40 WBC 16.2 H (4.5-11.0) X10^3/uL RBC 4.76 (4.5-5.9) X10^6/uL Hgb 13.9 (13.5-17.5) g/dL Hct 42.7 (41-53) % MCV 89.6 (80-100) fL MCH 29.1 (26-34) PG MCHC 32.5 (30-36) % RDW 15.7 H (11.6-14.8) % Plt Count 426 H (150-400) X10^3/uL Neut % (Auto) 64.9 (50-75) % Lymph % (Auto) 23.8 L (25-40) % Stevens % (Auto) 9.7 (3-14) % Eos % (Auto) 0.6 L (2-4) % Baso % (Auto) 1.0 (0-2) % Neut # (Auto) 04672 H (3373-4133) /uL Lymph # (Auto) 3900 (5383-4923) /uL Stevens # (Auto) 1600 H (0-900) /uL Eos # (Auto) 100 (0-450) /uL Baso # (Auto) 200 H (0-100) /uL Plt Morphology Comment RBC Morphology See below Anisocytosis 1+ H VBG pH 7.40 (7.33-7.43) VBG pCO2 30.3 L (45-50) mmHg VBG pO2 43 (35-45) mmHg VBG HCO3 19 L (24-28) mmol/L VBG Total CO2 20 L (24-29) mmol/L VBG O2 Saturation 80 H (70-75) % VBG Base Excess -6.0 L (0-4) mmol/L FiO2 21 Sodium 137 (137-145) mmol/L Potassium 5.0 (3.4-5.1) mmol/L Chloride 103 (98-107) mmol/L Carbon Dioxide 21 L (22-32) mmol/L BUN 47 H (9-20) mg/dL Creatinine 1.05 (0.66-1.25) mg/dL Estimated GFR > 60 (>60) mL/min BUN/Creatinine Ratio 44.8 H (6-22) Glucose 428 H (80-110) mg/dL Lactate 5.6 H* (0.7-2.1) mmol/L Calcium 9.8 (8.4-10.2) mg/dL Total Bilirubin 0.5 (0.2-1.3) mg/dL AST 17 (17-59) IU/L ALT 15 (<50) IU/L Alkaline Phosphatase 101 (38-126) U/L Total Protein 6.2 L (6.3-8.2) g/dL Albumin 3.4 L (3.5-5.0) g/dL Globulin 2.8 (1.7-4.1) g/dL Albumin/Globulin Ratio 1.2 (1.0-2.8) Lipase 17 L (23-300) U/L Procalcitonin 0.12 (<0.5) ng/mL Urine Color Urine Appearance Urine pH (4.5-8.0) Ur Specific [place] (1.000-1.035) Urine Protein (Negative) Urine Glucose (UA) (Negative) g/dL Urine Ketones (NEGATIVE) Urine Occult Blood (Negative) Urine Nitrate (Negative) Urine Bilirubin (NEGATIVE) Urine Urobilinogen (0.2) E.U./dL Ur Leukocyte Esterase (NEGATIVE) Urine RBC (0-5/HPF) Urine WBC (0-5/HPF) Ur Squamous Epith Cells (0-5/HPF) Urine Bacteria (None) Ur Culture Indicated? SARS-CoV-2 (PCR) Negative (Negative) Influenza A (RT-PCR) Flu a negative (NEGATIVE) Influenza B (RT-PCR) Flu b negative (NEGATIVE) RSV (PCR) Negative (Negative) 02/27/23 02/27/23 02/27/23 Range/Units 16:38 17:34 18:35 WBC 19.3 H (4.5-11.0) X10^3/uL RBC 4.24 L (4.5-5.9) X10^6/uL Hgb 12.4 L (13.5-17.5) g/dL Hct 38.0 L (41-53) % MCV 89.5 (80-100) fL MCH 29.2 (26-34) PG MCHC 32.6 (30-36) % RDW 15.5 H (11.6-14.8) % Plt Count 405 H (150-400) X10^3/uL Neut % (Auto) 77.6 H (50-75) % Lymph % (Auto) 15.5 L (25-40) % Stevens % (Auto) 6.2 (3-14) % Eos % (Auto) 0.0 L (2-4) % Baso % (Auto) 0.7 (0-2) % Neut # (Auto) 50066 H (4536-5554) /uL Lymph # (Auto) 3000 (8763-4292) /uL Stevens # (Auto) 1200 H (0-900) /uL Eos # (Auto) 0 (0-450) /uL Baso # (Auto) 100 (0-100) /uL Plt Morphology Comment RBC Morphology Anisocytosis VBG pH (7.33-7.43) VBG pCO2 (45-50) mmHg VBG pO2 (35-45) mmHg VBG HCO3 (24-28) mmol/L VBG Total CO2 (24-29) mmol/L VBG O2 Saturation (70-75) % VBG Base Excess (0-4) mmol/L FiO2 Sodium 137 (137-145) mmol/L Potassium 5.3 H (3.4-5.1) mmol/L Chloride 108 H (98-107) mmol/L Carbon Dioxide 17 L (22-32) mmol/L BUN 53 H (9-20) mg/dL Creatinine 0.97 (0.66-1.25) mg/dL Estimated GFR > 60 (>60) mL/min BUN/Creatinine Ratio 54.6 H (6-22) Glucose 379 H (80-110) mg/dL Lactate 3.4 H 4.0 H (0.7-2.1) mmol/L Calcium 9.2 (8.4-10.2) mg/dL Total Bilirubin (0.2-1.3) mg/dL AST (17-59) IU/L ALT (<50) IU/L Alkaline Phosphatase (38-126) U/L Total Protein (6.3-8.2) g/dL Albumin (3.5-5.0) g/dL Globulin (1.7-4.1) g/dL Albumin/Globulin Ratio (1.0-2.8) Lipase (23-300) U/L Procalcitonin (<0.5) ng/mL Urine Color Yellow Urine Appearance Clear Urine pH 6.0 (4.5-8.0) Ur Specific [place] <=1.005 (1.000-1.035) Urine Protein Negative (Negative) Urine Glucose (UA) 3+ H (Negative) g/dL Urine Ketones 1+ H (NEGATIVE) Urine Occult Blood 2+ H (Negative) Urine Nitrate Negative (Negative) Urine Bilirubin Negative (NEGATIVE) Urine Urobilinogen 1.0 (0.2) E.U./dL Ur Leukocyte Esterase Trace H (NEGATIVE) Urine RBC 30-100/hpf H (0-5/HPF) Urine WBC 5-10/hpf H (0-5/HPF) Ur Squamous Epith Cells None seen (0-5/HPF) Urine Bacteria None seen (None) Ur Culture Indicated? Specimen cultured SARS-CoV-2 (PCR) (Negative) Influenza A (RT-PCR) (NEGATIVE) Influenza B (RT-PCR) (NEGATIVE) RSV (PCR) (Negative) Point of Care Testing Glucose POC 377 Point of care testing: Point of Care Testing Glucose POC 377 MDM Narrative Medical decision making narrative: Dr Farfan: Received turned over. Review patient's history and physical exam of workup to this point. Patient has remained persistently tachycardic. His lactate did improve but then increased once again. He was given Rocephin. His urinalysis has white blood cells and leukocyte esterase. His elevated blood sugar today does seem to be new compared to review of his blood sugars from his living facility. Patient is not in DKA. Given his age in his persistent tachycardia in his elevated lactate in his rising leukocytosis patient does require admission to the hospital. I did discuss the case with Dr. Sanchez hospitalist on-call who will admit for further evaluation and treatment. Discussed the need for admission with the patient. He expressed understanding and agreement as well Discharge Plan Departure Patient Disposition: Admitted As Inpatient Clinical Impression: Hyperglycemia, Acute UTI Admit Date/Time: 02/27/23 19:52 Admit Provider: Juan M Donovan
[2023-02-27 14:39] LABS: Alanine Aminotransferase 15 IU/L (<50); Albumin 3.4 g/dL (3.5-5.0); Albumin Globulin Ratio 1.2 (1.0-2.8); Alkaline Phosphatase 101 U/L (38-126); Aspartate Aminotransferase 17 IU/L (17-59); BUN Creatinine Ratio 44.8 (6-22); Bilirubin Total 0.5 mg/dL (0.2-1.3); Blood Urea Nitrogen 47 mg/dL (9-20); Calcium 9.8 mg/dL (8.4-10.2); Carbon Dioxide 21 mmol/L (22-32); Chloride 103 mmol/L (98-107); Estimated Glomerular Filt Rate > 60 mL/min (>60); Globulin 2.8 g/dL (1.7-4.1); Glucose 428 mg/dL (80-110); HEMOLYSIS < 15 (0-50); Sodium 137 mmol/L (137-145); Total Protein 6.2 g/dL (6.3-8.2)
[2023-02-27 14:48] LABS: Basophils Absolute Auto 200 /uL (0-100); Eosinophils Absolute Auto 100 /uL (0-450); Eosinophils Percent Auto 0.6 % (2-4); Hematocrit 42.7 % (41-53); Hemoglobin 13.9 g/dL (13.5-17.5); Lymphocytes Absolute Auto 3900 /uL (1100-4500); Lymphocytes Percent Auto 23.8 % (25-40); Mean Corpuscular HGB Conc 32.5 % (30-36); Mean Corpuscular Hemoglobin 29.1 PG (26-34); Mean Corpuscular Volume 89.6 fL (80-100); Monocytes Absolute Auto 1600 /uL (0-900); Monocytes Percent Auto 9.7 % (3-14); Neutrophils Absolute Auto 10500 /uL (1500-7000); Neutrophils Percent Auto 64.9 % (50-75); Platelet Count 426 X10^3/uL (150-400); Red Blood Cell Count 4.76 X10^6/uL (4.5-5.9); Red Cell Distribution Width 15.7 % (11.6-14.8); White Blood Cell Count 16.2 X10^3/uL (4.5-11.0)
[2023-02-27 14:49] LABS: Add Manual Diff / Slide Review SLIDE REVIEW
[2023-02-27 14:52] LABS: Fractionated Inspired Oxygen 21; HCO3 VBG 19 mmol/L (24-28); Oxygen Saturation VBG 80 % (70-75); PCO2 VBG 30.3 mmHg (45-50); PO2 VBG 43 mmHg (35-45); Total CO2 VBG 20 mmol/L (24-29)
[2023-02-27 14:58] LABS: Lipase 17 U/L (23-300)
[2023-02-27 15:08] LABS: Anisocytosis 1+
[2023-02-27 15:23] LABS: Influenza A - CEPHEID Flu A NEGATIVE (NEGATIVE); Influenza B - CEPHEID Flu B NEGATIVE (NEGATIVE); Respiratory Syncytial Virus Negative (Negative)
[2023-02-27 15:39] LABS: Lactate (Lactic Acid) 5.6 mmol/L (0.7-2.1)
--- NOTE | 2023-02-27 15:39 | PC.NURSE ---
Dr. Reardon notified of patients vitals. Verbal order read back for a second 1L BOLUS of NS at this time. primary RN aware.
[2023-02-27 15:51] LABS: Procalcitonin 0.12 ng/mL (<0.5)
[2023-02-27] MEDS: cefTRIAXone 1,000 MG in SODIUM CHLORIDE 0.9% 100 ML 200 MG IV (15:57)
--- NOTE | 2023-02-27 16:16 | PC.NURSE ---
Patient is laying in bed, call light in reach. He reports lower abdominal pain durring assessment, but says that he now does not have any pain. Pt responded it comes and goes when I inquired further. Pt also mentioned his right foot/leg hurting while I was assessing him. When I asked how much it was hurting, he replied it's not now, and it's gone now. Patient resting quietly with mouth open snoring, oxygen 93% room air.
[2023-02-27 16:22] LABS: COVID-19 CEPHEID 4-PLEX PCR Negative (Negative)
[2023-02-27 17:04] LABS: Lactate 2HR (Lactic Acid Rflx) 3.4 mmol/L (0.7-2.1)
--- NOTE | 2023-02-27 17:41 | PC.NURSE ---
Patient states he wet his brief. 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
[2023-02-27 18:08] LABS: Appearance Urine UA CLEAR; Bilirubin Urine UA NEGATIVE (NEGATIVE); Color Urine UA YELLOW; Glucose Urine UA 3+ g/dL (Negative); Ketones Urine UA 1+ (NEGATIVE); Leukocyte Esterase Urine UA TRACE (NEGATIVE); Nitrite Urine UA NEGATIVE (Negative); Occult Blood Urine UA 2+ (Negative); Protein Urine UA NEGATIVE (Negative); Specific Gravity Urine UA <=1.005 (1.000-1.035)
[2023-02-27 18:16] LABS: RBC Urine 30-100/HPF (0-5/HPF); WBC Urine 5-10/HPF (0-5/HPF)
[2023-02-27 18:17] LABS: Bacteria Urine None Seen; Culture Indicated Urine Specimen Cultured; Squamous Epithelial Cell Urine None Seen (0-5/HPF)
--- NOTE | 2023-02-27 18:23 | PC.NURSE ---
Patient is alert to self, year, and location. He is having a difficult time expressing exactly what he wants currently. He denies pain, needing to use the bathroom, nausea. BG check 400, new orders per provider.
[2023-02-27] MEDS: SODIUM CHLORIDE 0.9% 1,000 ML 125 ML IV (18:40)
[2023-02-27] MEDS: INSULIN LISPRO 100 UNIT/ML 3ML VIAL 9 UNIT SUBCUT (18:51)
[2023-02-27 19:10] LABS: BUN Creatinine Ratio 54.6 (6-22); Blood Urea Nitrogen 53 mg/dL (9-20); Calcium 9.2 mg/dL (8.4-10.2); Carbon Dioxide 17 mmol/L (22-32); Chloride 108 mmol/L (98-107); Estimated Glomerular Filt Rate > 60 mL/min (>60); Glucose 379 mg/dL (80-110); HEMOLYSIS < 15 (0-50); Potassium 5.3 mmol/L (3.4-5.1); Sodium 137 mmol/L (137-145)
[2023-02-27 19:16] LABS: Add Manual Diff / Slide Review NO; Basophils Absolute Auto 100 /uL (0-100); Basophils Percent Auto 0.7 % (0-2); Eosinophils Absolute Auto 0 /uL (0-450); Hemoglobin 12.4 g/dL (13.5-17.5); Lymphocytes Absolute Auto 3000 /uL (1100-4500); Lymphocytes Percent Auto 15.5 % (25-40); Mean Corpuscular HGB Conc 32.6 % (30-36); Mean Corpuscular Hemoglobin 29.2 PG (26-34); Mean Corpuscular Volume 89.5 fL (80-100); Monocytes Absolute Auto 1200 /uL (0-900); Monocytes Percent Auto 6.2 % (3-14); Neutrophils Absolute Auto 14900 /uL (1500-7000); Neutrophils Percent Auto 77.6 % (50-75); Platelet Count 405 X10^3/uL (150-400); Red Blood Cell Count 4.24 X10^6/uL (4.5-5.9); Red Cell Distribution Width 15.5 % (11.6-14.8); White Blood Cell Count 19.3 X10^3/uL (4.5-11.0)
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
[2023-02-27 20:42] LABS: Reflexed Lactate in 2 Hours Y
[2023-02-27 21:38] LABS: Lactate 2HR (Lactic Acid Rflx) 6.7 mmol/L (0.7-2.1)
--- NOTE | 2023-02-27 22:23 | DI.ECHO.S_ITS ---
[facility]---------+ [facility] +---------+ : : [address] [place] : : : : [id number] : : : : Phone: [phone] Echocardiogram Report + + :Name: SHELLIE GARCIA Study Date: 02/28/2023 Height: 69 in : :[facility] ReadingLocation: Weight: 220 lb : : Gender: Male BSA: 2.2 m2 : :: 1945 Age: 77 yrs BP: 114/64 mmHg: :Reason For Study: SUSPECTED CONGESTIVE HEART FAILURE : :Ordering Physician: POLO, : :VIJAYA Reis MD Performed By: Hannah Oneill : :Referring: VIJAYA CUELLAR MD : + + Interpretation Summary The left ventricle is normal in size. There is mild-moderate concentric left ventricular hypertrophy. The left ventricle is hyperdynamic. The ejection fraction is estimated to be >80%. The right ventricle is not well visualized. The right ventricle grossly appears normal in size with probable normal systolic function. Pulmonary artery pressures cannot be estimated because of the lack of a measurable TR jet velocity. The left atrial size is normal. Aortic valve gradients are taken from an off-axis window. There is no hemodynamically significant valvular aortic stenosis. The aortic root is normal size. Procedure: A two-dimensional transthoracic echocardiogram with color flow and Doppler was performed. The study quality was technically difficult. There is no prior echocardiogram noted for this patient. A contrast injection of Definity was performed to improve assessment of LV function. The patient was in sinus rhythm with heart rates between 78-94 bpm during the exam. Left Ventricle: The left ventricle is normal in size. There is mild-moderate concentric left ventricular hypertrophy. The left ventricle is hyperdynamic. The ejection fraction is estimated to be >80%. There are no focal wall motion abnormalities. Diastolic function could not be accurately assessed due to unobtainable data. Right Ventricle: The right ventricle is not well visualized. The right ventricle grossly appears normal in size with probable normal systolic function. Atria: The left atrial size is normal. Right atrium not well visualized. The interatrial septum appears grossly normal. Mitral Valve: The mitral valve is normal in structure and function. There is mild mitral annular calcification. There is no mitral regurgitation noted. Aortic Valve: The aortic valve is trileaflet. The aortic valve is mildly calcified. Aortic valve gradients are taken from an off-axis window. There is no hemodynamically significant valvular aortic stenosis. No aortic regurgitation is present. Tricuspid Valve: The tricuspid valve is not well visualized, but is grossly normal. Pulmonary artery pressures cannot be estimated because of the lack of a measurable TR jet velocity. There is a trace or physiologic amount of tricuspid regurgitation. Pulmonic Valve: The pulmonic valve leaflets are thin and pliable; valve motion is normal. There is no pulmonic valvular regurgitation. Great Vessels: The aortic root is normal size. The dimensions of the ascending aorta are normal. The IVC is of normal diameter and collapses greater than 50% with a sniff. This suggests a low right atrial pressure of 3 mm Hg. Pericardium/ Pleura There is no pericardial effusion. There is no pleural effusion. MMode/2D Measurements & Calculations LVIDd: 4.2 cm LVOT diam: 2.3 cm LVIDs: 2.6 cm Ao root diam: 3.3 cm FS: 38.2 % asc Aorta Diam: 3.5 cm IVSd: 1.4 cm LVPWd: 1.4 cm LV dao. diameter/BSA (cm/m^2): 1.9 LV sys. diameter/BSA (cm/m^2): 1.2 LA A2 area: 12.7 cm2 IVC diam: 1.3 cm LA A4 area: 10.4 cm2 LA length (vol): 4.4 cm LA vol: 25.6 ml LA vol index: 11.9 ml/m2 Doppler Measurements & Calculations Ao V2 max: 114.3 cm/sec LVOT Max Isai: 92.2 cm/sec Ao V2 mean: 73.6 cm/sec LV V1 max P.4 mmHg Ao max P.2 mmHg LV V1 VTI: 13.0 cm Ao mean P.5 mmHg JAMILA(I,D): 3.8 cm2 Ao V2 VTI: 14.0 cm JAMILA(V,D): 3.3 cm2 sev ratio: 0.93 JAMILA indexed to BSA (cm^2/m^2): 1.8 MV E max isai: 49.6 cm/sec PA pr(Accel): 56.7 mmHg MV A max isai: 84.8 cm/sec MV E/A: 0.58 MV dec time: 0.21 sec SV(LVOT): 53.5 ml Reading Physician:08:43 AM
[2023-02-27] MEDS: INSULIN LISPRO 100 UNIT/ML 3ML VIAL SUBCUT (22:37)
--- NOTE | 2023-02-27 22:57 | PC.ADMIT ---
Addendum entered by Gabriela Mast R.N. 02/28/23 05:44: Pt refusing villasenor catheter placement and SCD's, educated pt on importance of both, pt continues to refuse, will try again later, no further needs at this time, will continue to monitor Addendum entered by Gabriela Mast R.N. 02/28/23 04:00: 0400 Pt allowed this nurse to draw labs from PIV 18g Addendum entered by Gabriela Mast R.N. 02/28/23 02:02: 0202 Pt refusing labs at this time, states f... the Doctor, I'm not letting you poke me. Educated pt on the importance of blood work, lab will try again at 0330. No further needs at this time Addendum entered by Gabriela Mast R.N. 02/28/23 00:25: 1220 New critical lactate of 5.2, provider notified Addendum entered by Gabriela Mast R.N. 02/27/23 23:05: Correction: Critical Lactate of 6.7 (not 6.1 as previously noted) Original Note: [address] [place] [address] Room 102 Admission Note: The patient,Matt Guerra,77 y/o, was given written information regarding hospital policies, unit procedures and contact persons. Patient's smoking status: Never smoker. Vital Signs - 8 hr 02/27/23 15:00 02/27/23 15:00 02/27/23 15:30 Temperature Pulse Rate 96 H Respiratory Rate 20 Blood Pressure 103/58 L 100/68 Pulse Oximetry 95 Oxygen Delivery Method Room Air 02/27/23 15:30 02/27/23 16:00 02/27/23 16:00 Temperature 97.5 F L Pulse Rate 104 H 101 H Respiratory Rate 25 H Blood Pressure 110/76 Pulse Oximetry 94 95 Oxygen Delivery Method Room Air 02/27/23 16:16 02/27/23 16:16 02/27/23 16:19 Temperature Pulse Rate 91 H Respiratory Rate 21 Blood Pressure 114/66 Pulse Oximetry 94 93 Oxygen Delivery Method Room Air Room Air 02/27/23 16:30 02/27/23 16:31 02/27/23 16:31 Temperature Pulse Rate 92 H 92 H Respiratory Rate 23 22 Blood Pressure 109/60 Pulse Oximetry 95 95 Oxygen Delivery Method 02/27/23 16:45 02/27/23 16:45 02/27/23 17:00 Temperature Pulse Rate 97 H 101 H Respiratory Rate 22 23 Blood Pressure 102/59 L Pulse Oximetry 96 95 Oxygen Delivery Method Room Air 02/27/23 17:00 02/27/23 17:15 02/27/23 17:15 Temperature Pulse Rate 110 H Respiratory Rate 25 H Blood Pressure 104/66 108/70 Pulse Oximetry Oxygen Delivery Method 02/27/23 17:30 02/27/23 17:30 02/27/23 17:45 Temperature Pulse Rate 108 H Respiratory Rate 25 H Blood Pressure 101/73 100/68 Pulse Oximetry 96 Oxygen Delivery Method Room Air 02/27/23 17:45 02/27/23 18:00 02/27/23 18:00 Temperature Pulse Rate 109 H 108 H Respiratory Rate 28 H 30 H Blood Pressure 96/62 Pulse Oximetry 95 96 Oxygen Delivery Method Room Air 02/27/23 18:15 02/27/23 18:15 02/27/23 18:30 Temperature Pulse Rate 116 H Respiratory Rate 28 H Blood Pressure 98/78 101/71 Pulse Oximetry 96 Oxygen Delivery Method Room Air 02/27/23 18:30 02/27/23 18:45 02/27/23 18:45 Temperature Pulse Rate 110 H 114 H Respiratory Rate 32 H 34 H Blood Pressure 106/73 Pulse Oximetry 96 96 Oxygen Delivery Method Room Air 02/27/23 19:00 02/27/23 19:00 02/27/23 19:02 Temperature Pulse Rate 114 H Respiratory Rate 35 H Blood Pressure 92/63 101/65 Pulse Oximetry 96 Oxygen Delivery Method 02/27/23 19:02 02/27/23 19:15 02/27/23 19:15 Temperature Pulse Rate 114 H 115 H Respiratory Rate 35 H 30 H Blood Pressure 99/67 Pulse Oximetry 96 96 Oxygen Delivery Method Room Air 02/27/23 19:30 02/27/23 19:30 02/27/23 19:45 Temperature Pulse Rate 111 H Respiratory Rate 31 H Blood Pressure 98/60 101/61 Pulse Oximetry 96 Oxygen Delivery Method 02/27/23 19:45 02/27/23 20:00 02/27/23 20:00 Temperature Pulse Rate 114 H 112 H Respiratory Rate 33 H 30 H Blood Pressure 90/59 L Pulse Oximetry 96 96 Oxygen Delivery Method 02/27/23 20:04 02/27/23 20:04 02/27/23 20:04 Temperature Pulse Rate 116 H Respiratory Rate 31 H Blood Pressure 96/65 Pulse Oximetry 96 Oxygen Delivery Method Room Air 02/27/23 20:15 02/27/23 20:15 02/27/23 20:27 Temperature Pulse Rate 114 H Respiratory Rate 30 H Blood Pressure 90/65 94/68 Pulse Oximetry 96 Oxygen Delivery Method 02/27/23 20:27 02/27/23 20:30 02/27/23 20:30 Temperature Pulse Rate 114 H 115 H Respiratory Rate 33 H 31 H Blood Pressure 95/68 Pulse Oximetry 96 96 Oxygen Delivery Method 02/27/23 20:45 02/27/23 20:46 02/27/23 20:46 Temperature Pulse Rate 121 H 122 H Respiratory Rate 32 H 33 H Blood Pressure 103/70 Pulse Oximetry Oxygen Delivery Method 02/27/23 21:00 02/27/23 21:00 Temperature Pulse Rate 116 H Respiratory Rate 35 H Blood Pressure 101/79 Pulse Oximetry 96 Oxygen Delivery Method Pt arrived via [employer], slide board used to move pt into bed, connected to all monitoring equipment, pt unable to state name or , but can answer yes or no to questions of pain. Hospitalist contacted via portable monitor and assisted with evaluation. Critical Lactate of 6.1 received at 2138, provider notified, no new orders at this time. Oriented pt to room and call light system, FSBG 377, coverage administered (see emar). Bed low and locked, call light within reach, will continue to monitor.
[2023-02-28] VITALS (107 sets, daily range): BP systolic 107–195; BP diastolic 56–99; PULSE 79–111; RESP 13–32; TEMP 36.4–37.4; O2SAT 89–100
[2023-02-28 00:18] LABS: BUN Creatinine Ratio 57.9 (6-22); Blood Urea Nitrogen 66 mg/dL (9-20); Calcium 8.9 mg/dL (8.4-10.2); Carbon Dioxide 16 mmol/L (22-32); Chloride 109 mmol/L (98-107); Estimated Glomerular Filt Rate > 60 mL/min (>60); Glucose 357 mg/dL (80-110); HEMOLYSIS < 15 (0-50); Potassium 5.1 mmol/L (3.4-5.1); Sodium 138 mmol/L (137-145)
[2023-02-28 00:20] LABS: Lactate (Lactic Acid) 5.2 mmol/L (0.7-2.1)
[2023-02-28 00:26] LABS: MRSA (Nasal) PCR Not Detected (Not Detect)
[2023-02-28 01:41] LABS: Reflexed Lactate in 2 Hours Y
[2023-02-28] MEDS: SODIUM CHLORIDE 0.9% 1,000 ML 125 ML IV ×2 (02:38→10:52)
[2023-02-28 04:15] LABS: Add Manual Diff / Slide Review NO; Basophils Absolute Auto 200 /uL (0-100); Basophils Percent Auto 0.7 % (0-2); Eosinophils Absolute Auto 0 /uL (0-450); Hematocrit 32.8 % (41-53); Hemoglobin 10.7 g/dL (13.5-17.5); Lymphocytes Absolute Auto 4800 /uL (1100-4500); Lymphocytes Percent Auto 22.5 % (25-40); Mean Corpuscular HGB Conc 32.6 % (30-36); Mean Corpuscular Hemoglobin 29.2 PG (26-34); Mean Corpuscular Volume 89.6 fL (80-100); Monocytes Absolute Auto 2300 /uL (0-900); Monocytes Percent Auto 10.5 % (3-14); Neutrophils Absolute Auto 14200 /uL (1500-7000); Neutrophils Percent Auto 66.3 % (50-75); Platelet Count 347 X10^3/uL (150-400); Red Blood Cell Count 3.66 X10^6/uL (4.5-5.9); Red Cell Distribution Width 15.5 % (11.6-14.8); White Blood Cell Count 21.4 X10^3/uL (4.5-11.0)
[2023-02-28 04:19] LABS: Hemoglobin A1C% w Est Avg Glu 9.3 % (4.0-6.0); Lactate 2HR (Lactic Acid Rflx) 3.9 mmol/L (0.7-2.1)
[2023-02-28] MEDS: INSULIN LISPRO 100 UNIT/ML 3ML VIAL SUBCUT ×4 (08:23→20:45)
[2023-02-28] MEDS: CLOPIDOGREL 75 MG TABLET PO (08:52)
[2023-02-28] MEDS: ASPIRIN EC 81 MG TABLET PO (08:52)
[2023-02-28] MEDS: DOCUSATE 100 MG CAPSULE PO (08:52)
[2023-02-28] MEDS: ENOXAPARIN 30 MG/0.3 ML SYRINGE SUBCUT (08:54)
[2023-02-28] MEDS: INSULIN NPH 100 UNIT/ML 10ML VIAL 22 UNIT SUBCUT (09:08)
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
[2023-02-28] MEDS: PANTOPRAZOLE 40 MG VIAL 80 MG IV (15:19)
[2023-02-28 15:44] LABS: Hematocrit 30.3 % (41-53); Hemoglobin 9.9 g/dL (13.5-17.5)
[2023-02-28 15:48] LABS: BUN Creatinine Ratio 65.9 (6-22); Blood Urea Nitrogen 58 mg/dL (9-20); Calcium 8.7 mg/dL (8.4-10.2); Carbon Dioxide 20 mmol/L (22-32); Chloride 115 mmol/L (98-107); Estimated Glomerular Filt Rate > 60 mL/min (>60); Glucose 278 mg/dL (80-110); HEMOLYSIS < 15 (0-50); Potassium 3.6 mmol/L (3.4-5.1); Sodium 143 mmol/L (137-145)
--- NOTE | 2023-02-28 15:53 | CM.DANOTE ---
Initial DCP Assessment Note Pt is a 77 yo male, resident at [facility], presents with high BS, nauseous with poor po intake. PMH includes DM II and CVA. Patient admitted with sepsis due to UTI with metabolic encephalopathy. Now with anemia and black tarry stools, GI bleed suspected- scope if bleeding continues. PCP: Flaquita Orantes Payer: MCR/MARIANELA Reviewed chart, pt discussed in multidisciplinary rounds this morning. Patient quite fatigued today, H+H is trending downward per chart review. Plan: Anticipate return to [facility] vs SNF stay---> if it appears patient is not returning to baseline cognition and functioning. CM team will plan to follow closely for initial assessment either with patient ,once more alert vs daughter Eryn, need to get report on PLOF . 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 Yes: POLST Advance Directives on File No History Provided By Patient,Medical Record Prior Living Arrangements Assisted Living Comment [facility] Household Members none Type of transporation used prior to Relies on Others admit Facility Name Admitted From: [facility] Willing to Return to Facility? Yes Independent with ADL's No: baseline unknown Is patient alert and oriented? No: baseline unknown Needs Assistance With Grooming,Meal Prep,Managing Medications,Home Chores / Shopping Comment Unknown at this time. May benefit from SNF stay before return to [facility], TBD.
[2023-02-28] MEDS: cefTRIAXone 1,000 MG in SODIUM CHLORIDE 0.9% 100 ML 100 MG IV (20:34)
[2023-02-28] MEDS: SENNOSIDES 8.6 MG TABLET 17.2 MG PO (20:34)
[2023-02-28] MEDS: ACETAMINOPHEN 325 MG TABLET 650 MG PO (20:34)
[2023-02-28] MEDS: TAMSULOSIN 0.4 MG CAPSULE PO (20:35)
[2023-02-28] MEDS: PANTOPRAZOLE 40 MG VIAL IV (20:35)
[2023-02-28] MEDS: INSULIN GLARGINE 100 UNIT/ML 3ML PEN 40 UNIT SUBCUT (20:48)
[2023-03-01] VITALS (107 sets, daily range): BP systolic 105–135; BP diastolic 54–61; PULSE 65–150; RESP 9–38; TEMP 36.2–37.1; O2SAT 79–100
[2023-03-01 05:22] LABS: Add Manual Diff / Slide Review NO; Basophils Absolute Auto 100 /uL (0-100); Basophils Percent Auto 0.4 % (0-2); Eosinophils Absolute Auto 200 /uL (0-450); Eosinophils Percent Auto 1.2 % (2-4); Hematocrit 28.2 % (41-53); Hemoglobin 9.3 g/dL (13.5-17.5); Lymphocytes Absolute Auto 4300 /uL (1100-4500); Lymphocytes Percent Auto 20.6 % (25-40); Mean Corpuscular Hemoglobin 29.4 PG (26-34); Mean Corpuscular Volume 89.2 fL (80-100); Monocytes Absolute Auto 1600 /uL (0-900); Monocytes Percent Auto 7.5 % (3-14); Neutrophils Absolute Auto 14800 /uL (1500-7000); Neutrophils Percent Auto 70.3 % (50-75); Platelet Count 350 X10^3/uL (150-400); Red Blood Cell Count 3.17 X10^6/uL (4.5-5.9)
[2023-03-01 06:13] LABS: BUN Creatinine Ratio 54.4 (6-22); Blood Urea Nitrogen 49 mg/dL (9-20); Calcium 9.6 mg/dL (8.4-10.2); Carbon Dioxide 22 mmol/L (22-32); Chloride 117 mmol/L (98-107); Estimated Glomerular Filt Rate > 60 mL/min (>60); Glucose 174 mg/dL (80-110); HEMOLYSIS < 15 (0-50); Potassium 4.3 mmol/L (3.4-5.1); Sodium 146 mmol/L (137-145)
[2023-03-01] MEDS: INSULIN LISPRO 100 UNIT/ML 3ML VIAL SUBCUT ×4 (08:12→20:45)
[2023-03-01] MEDS: ENOXAPARIN 40 MG/0.4 ML SYRINGE SUBCUT (08:51)
[2023-03-01] MEDS: PANTOPRAZOLE 40 MG VIAL IV ×2 (08:53→20:45)
--- NOTE | 2023-03-01 13:45 | P.PN_ITS ---
Subjective Subjective Date Patient Seen: 03/01/23 Interval history: 77 y/o long-term resident of nursing facility with PMH of DM, CAD, HTN, CHFpEF admitted with acute encephalopathy, elevated glucose, sepsis, and probable GI bleeding. He is much more alert today. H/h is down slightly today. BP a bit soft but stable. Patient has no complaints. Exam Vital Signs (past 8 hours): - 03/01/23 06:00 03/01/23 06:15 03/01/23 06:30 Temperature Pulse Rate 84 83 83 Respiratory Rate 11 L 16 13 Blood Pressure Pulse Oximetry 95 97 95 Oxygen Delivery Method 03/01/23 06:45 03/01/23 07:00 03/01/23 07:00 Temperature Pulse Rate 81 82 Respiratory Rate 16 12 Blood Pressure Pulse Oximetry 96 98 Oxygen Delivery Method Room Air 03/01/23 07:15 03/01/23 07:28 03/01/23 07:28 Temperature Pulse Rate 78 81 Respiratory Rate 12 19 Blood Pressure 121/57 L Pulse Oximetry 98 97 Oxygen Delivery Method 03/01/23 07:30 03/01/23 07:43 03/01/23 07:45 Temperature 98.2 F Pulse Rate 80 79 Respiratory Rate 13 13 Blood Pressure Pulse Oximetry 98 97 Oxygen Delivery Method 03/01/23 08:00 03/01/23 08:15 03/01/23 08:38 Temperature Pulse Rate 77 76 82 Respiratory Rate 9 L 13 17 Blood Pressure Pulse Oximetry 97 97 Oxygen Delivery Method 03/01/23 08:45 03/01/23 09:00 03/01/23 09:15 Temperature Pulse Rate 86 89 84 Respiratory Rate 15 17 16 Blood Pressure Pulse Oximetry Oxygen Delivery Method 03/01/23 09:30 03/01/23 09:45 03/01/23 10:00 Temperature Pulse Rate 88 85 82 Respiratory Rate 16 16 20 Blood Pressure Pulse Oximetry Oxygen Delivery Method 03/01/23 10:15 03/01/23 10:21 03/01/23 10:30 Temperature Pulse Rate 104 H 95 H Respiratory Rate 26 H 18 Blood Pressure Pulse Oximetry 100 99 Oxygen Delivery Method Room Air 03/01/23 10:45 03/01/23 11:00 03/01/23 11:15 Temperature Pulse Rate 98 H 94 H 91 H Respiratory Rate 17 16 15 Blood Pressure Pulse Oximetry Oxygen Delivery Method 03/01/23 11:27 03/01/23 11:27 03/01/23 11:30 Temperature Pulse Rate 84 88 Respiratory Rate 18 16 Blood Pressure 116/54 L Pulse Oximetry 91 Oxygen Delivery Method Oxygen Delivery Method Room Air Narrative Exam Narrative: Gen: elderly male in no acute distress, improved color today. CV: RRR no m/r/g Pulm: shallow breaths but cta b/l Abd: S NT ND Ext: bilateral 1-2+ pitting edema Neuro: more alert today, R hemiparesis. Objective Labs 03/01/23 04:25 03/01/23 04:25 Labs: Laboratory Results - last 24 hr 02/28/23 03/01/23 15:15 04:25 WBC 21.0 H RBC 3.17 L Hgb 9.9 L 9.3 L Hct 30.3 L 28.2 L MCV 89.2 MCH 29.4 MCHC 33.0 RDW 16.0 H Plt Count 350 Neut % (Auto) 70.3 Lymph % (Auto) 20.6 L [place] % (Auto) 7.5 Eos % (Auto) 1.2 L Baso % (Auto) 0.4 Neut # (Auto) 72838 H Lymph # (Auto) 4300 [place] # (Auto) 1600 H Eos # (Auto) 200 Baso # (Auto) 100 Sodium 143 146 H Potassium 3.6 D 4.3 Chloride 115 H 117 H Carbon Dioxide 20 L 22 BUN 58 H 49 H Creatinine 0.88 0.90 Estimated GFR > 60 > 60 BUN/Creatinine Ratio 65.9 H 54.4 H Glucose 278 H 174 H D Calcium 8.7 9.6 Magnesium 2.0 PFSH Medical History BPH (benign prostatic hyperplasia) CAD (coronary artery disease) HTN (hypertension) Diabetes type 2, uncontrolled Hemiparesis 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 Social History household members: none Smoking Status: Never smoker alcohol intake: current Assessment & Plan Assessment & Plan narrative: (1) Sepsis due to UTI with metabolic encephalopathy and hypotension - SOFA score of 2 with acute metabolic encephalopathy and MAP <70, BP improved with initial fluids. - stopped additional fluids with history of HFpEF. - TTE with hyperdynamic function, LVH. - continue ceftriaxone for probable urinary source for 7 days, though cultures are negative. - does have history of chronic leukocytosis, but is slightly up from his usual value around 15K. - follow up cultures of urine and blood. (2) Acute blood loss anemia, secondary to GI bleeding - shortly after admission, patient with dark stools. Continue to trend h/h as has been slowly downtrending. - continue to hold home asa/plavix - Continue IV PPI BID - Discussed with surgery, plan for EGD tomorrow and if negative C-scope on Friday. - continue to follow h/h. (3) Diabetes type 2, uncontrolled: - Patient's glucose has been uncontrolled at living facility according to records. - he has no contraindications to Lantus, unclear why he is on NPH BID. - changed to Lantus 40 U at night, consider meal time addition depending on glucose control moving forward. Glucose at 190 today which is much improved. Will watch a bit longer glucose control before making changes. Will also be NPO for EGD so don't make too many adjustments upward on insulin therapy. (4) CAD (coronary artery disease): - hold asa and plavix in setting of GI bleeding. - unclear when this was found or if recent stent placement based on facility records. - TTE as noted above (5) HTN (hypertension): hold home bumex and lisinopril for now. (6) Hemiparesis 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: holding home asa an plavix as noted boanthony (7) BPH (benign prostatic hyperplasia): - okay to continue flomax Code: Full, POLST form in chart. Surrogate is daughter. Dispo: inpatient. continuing to evaluate GI Bleeding and glucose control now Quality VTE Deep Vein Thrombosis/Pulmonary Embolism Present on Admission: No
--- NOTE | 2023-03-01 14:53 | CM.DPNOTE ---
DCP Note According to PAU Ochoa, patient is scheduled for an EGD tomorrow and will not be ready for discharge over the weekend, Friday is the soonest. RN feels patient is at his functional and cognitive baseline. A+Ox3. Daughter has not been in contact. Plan: Anticipate patient will discharge back to [facility] via facility van vs Medicaid transport, soonest would be Friday. CM team following closely for coordination of discharge plan. Contact w/[facility] anticipated Friday. LLUVIA
[2023-03-01 15:38] LABS: Blood Urea Nitrogen 40 mg/dL (9-20); Calcium 9.4 mg/dL (8.4-10.2); Carbon Dioxide 22 mmol/L (22-32); Chloride 112 mmol/L (98-107); Estimated Glomerular Filt Rate > 60 mL/min (>60); Glucose 240 mg/dL (80-110); HEMOLYSIS < 15 (0-50); Potassium 3.9 mmol/L (3.4-5.1); Sodium 141 mmol/L (137-145)
[2023-03-01] MEDS: SENNOSIDES 8.6 MG TABLET 17.2 MG PO (20:45)
[2023-03-01] MEDS: INSULIN GLARGINE 100 UNIT/ML 3ML PEN 45 UNIT SUBCUT (20:45)
[2023-03-01] MEDS: TAMSULOSIN 0.4 MG CAPSULE PO (20:45)
[2023-03-01] MEDS: MELATONIN 3 MG TABLET 9 MG PO (20:45)
[2023-03-01] MEDS: OXYCODONE/ACETAMINOPHEN 5/325 TABLET 1 TAB PO (20:45)
[2023-03-01] MEDS: cefTRIAXone 1,000 MG in SODIUM CHLORIDE 0.9% 100 ML 100 MG IV (20:45)
[2023-03-02] VITALS (80 sets, daily range): BP systolic 106–149; BP diastolic 53–73; PULSE 54–97; RESP 10–21; TEMP 36.4–36.7; O2SAT 94–100; BMI 32.5
--- NOTE | 2023-03-02 | PATH_ITS ---
[facility] Accession Number: [id number] No. of containers..01 Tissue . 01 Material submitted: . gastrointestinal site - GASTRIC BIOPSY . 01 Diagnosis: Gastric Biopsy: Gastric body-type mucosa with mild chronic inflammation. Negative for Helicobacter organisms by immunohistochemistry. Negative for intestinal metaplasia. Negative for dysplasia or malignancy. MRV 03/06/2023 1548 Local . 01 Electronically signed: . Karla Carreno MD, Pathologist NPI- [id number] . 01 Gross description: . GASTRIC BIOPSY: Received in formalin is 1 fragment(s) of day, soft tissue measuring 0.3 x 0.3 x 0.2 cm submitted entirely in 1 cassette(s) /ELDON 03/04/2023 2308 Local . 01 Microscopic: . A. An immunohistochemical stain was performed to evaluate for Helicobacter organisms and is negative. The control stain showed appropriate reactivity. . * This test was developed and its performance characteristics determined by [facility]. It has not been cleared or approved by the U.S. Food and Drug Administration. The FDA has determined that such clearance or approval is not necessary. This test is used for clinical purposes. It should not be regarded as investigational or for research. . 01 Pathologist provided ICD-10: K29.70 . 01 CPT . 295991, [id number] Specimen Comment: A courtesy copy of this report has been sent to [phone] Performed at: 01 [facility] [address] [place] [address], [place], [place] [id number] MD Kolton Yi MD Phone: [phone]
[2023-03-02 04:39] LABS: Add Manual Diff / Slide Review NO; Basophils Absolute Auto 100 /uL (0-100); Basophils Percent Auto 0.6 % (0-2); Eosinophils Absolute Auto 1000 /uL (0-450); Eosinophils Percent Auto 5.4 % (2-4); Hemoglobin 8.2 g/dL (13.5-17.5); Lymphocytes Absolute Auto 7000 /uL (1100-4500); Lymphocytes Percent Auto 37.8 % (25-40); Mean Corpuscular HGB Conc 32.9 % (30-36); Mean Corpuscular Hemoglobin 29.6 PG (26-34); Mean Corpuscular Volume 89.8 fL (80-100); Monocytes Absolute Auto 1800 /uL (0-900); Monocytes Percent Auto 9.7 % (3-14); Neutrophils Absolute Auto 8600 /uL (1500-7000); Neutrophils Percent Auto 46.5 % (50-75); Platelet Count 321 X10^3/uL (150-400); Red Blood Cell Count 2.79 X10^6/uL (4.5-5.9); Red Cell Distribution Width 15.5 % (11.6-14.8); White Blood Cell Count 18.5 X10^3/uL (4.5-11.0)
[2023-03-02 04:44] LABS: BUN Creatinine Ratio 43.5 (6-22); Blood Urea Nitrogen 30 mg/dL (9-20); Calcium 9.3 mg/dL (8.4-10.2); Carbon Dioxide 23 mmol/L (22-32); Chloride 114 mmol/L (98-107); Estimated Glomerular Filt Rate > 60 mL/min (>60); Glucose 97 mg/dL (80-110); HEMOLYSIS < 15 (0-50); Magnesium 1.9 mg/dL (1.6-2.3); Potassium 3.2 mmol/L (3.4-5.1); Sodium 142 mmol/L (137-145)
[2023-03-02] MEDS: OXYCODONE/ACETAMINOPHEN 5/325 TABLET 1 TAB PO ×3 (08:14→20:47)
[2023-03-02] MEDS: POTASSIUM CHLORIDE 20 MEQ TAB 40 MEQ PO (08:14)
[2023-03-02] MEDS: PANTOPRAZOLE 40 MG VIAL IV ×2 (08:14→20:46)
--- NOTE | 2023-03-02 09:24 | PM.PN.1 ---
Subjective Subjective Date Patient Seen: 03/02/23 Interval history: 77 y/o long-term resident of nursing facility with PMH of DM, CAD, HTN, CHFpEF admitted with acute encephalopathy, elevated glucose, sepsis, and probable GI bleeding. He is much more alert today. He reports no complaints. H/h is down again today. BP a bit soft but stable. EGD planned for today. Exam Vital Signs (past 8 hours): - 03/02/23 01:30 03/02/23 01:45 03/02/23 02:00 Temperature Pulse Rate 64 65 60 Respiratory Rate 14 11 L 16 Blood Pressure Pulse Oximetry 97 96 97 Oxygen Delivery Method 03/02/23 02:15 03/02/23 02:30 03/02/23 02:45 Temperature Pulse Rate 61 60 62 Respiratory Rate 17 18 15 Blood Pressure Pulse Oximetry 97 99 98 Oxygen Delivery Method 03/02/23 03:00 03/02/23 03:15 03/02/23 03:30 Temperature Pulse Rate 63 65 64 Respiratory Rate 14 14 15 Blood Pressure Pulse Oximetry 98 98 96 Oxygen Delivery Method 03/02/23 03:45 03/02/23 04:00 03/02/23 04:03 Temperature Pulse Rate 63 66 70 Respiratory Rate 16 15 19 Blood Pressure Pulse Oximetry 97 97 97 Oxygen Delivery Method 03/02/23 04:03 03/02/23 04:15 03/02/23 04:22 Temperature 97.7 F Pulse Rate 91 H 72 Respiratory Rate 20 16 Blood Pressure 135/65 135/63 Pulse Oximetry 100 99 Oxygen Delivery Method 03/02/23 04:30 03/02/23 04:45 03/02/23 05:00 Temperature Pulse Rate 66 67 66 Respiratory Rate 15 13 13 Blood Pressure Pulse Oximetry 97 97 96 Oxygen Delivery Method 03/02/23 05:15 03/02/23 05:30 03/02/23 05:45 Temperature Pulse Rate 64 62 63 Respiratory Rate 13 15 14 Blood Pressure Pulse Oximetry 98 97 98 Oxygen Delivery Method 03/02/23 06:00 03/02/23 06:15 03/02/23 06:30 Temperature Pulse Rate 64 59 L 66 Respiratory Rate 16 14 17 Blood Pressure Pulse Oximetry 99 98 99 Oxygen Delivery Method 03/02/23 06:45 03/02/23 07:00 03/02/23 07:00 Temperature Pulse Rate 62 62 Respiratory Rate 14 13 Blood Pressure Pulse Oximetry 98 99 Oxygen Delivery Method Room Air 03/02/23 07:15 03/02/23 07:30 03/02/23 07:45 Temperature Pulse Rate 62 61 54 L Respiratory Rate 14 14 15 Blood Pressure Pulse Oximetry 98 97 98 Oxygen Delivery Method 03/02/23 07:50 03/02/23 07:50 03/02/23 08:00 Temperature 97.8 F Pulse Rate 73 65 Respiratory Rate 12 14 Blood Pressure 134/61 Pulse Oximetry 99 98 Oxygen Delivery Method 03/02/23 08:15 Temperature Pulse Rate 69 Respiratory Rate 13 Blood Pressure Pulse Oximetry 97 Oxygen Delivery Method Oxygen Delivery Method Room Air Narrative Exam Narrative: Gen: elderly male in no acute distress, improved color today. CV: RRR no m/r/g Pulm: shallow breaths but cta b/l Abd: S NT ND Ext: bilateral 2-3+ pitting edema Neuro: more alert today, R hemiparesis. Objective Labs 03/02/23 04:10 03/02/23 04:10 Labs: Laboratory Results - last 24 hr 03/01/23 03/02/23 15:05 04:10 WBC 18.5 H RBC 2.79 L Hgb 8.2 L Hct 25.0 L MCV 89.8 MCH 29.6 MCHC 32.9 RDW 15.5 H Plt Count 321 Neut % (Auto) 46.5 L D Lymph % (Auto) 37.8 [place] % (Auto) 9.7 Eos % (Auto) 5.4 H Baso % (Auto) 0.6 Neut # (Auto) 8600 H Lymph # (Auto) 7000 H [place] # (Auto) 1800 H Eos # (Auto) 1000 H Baso # (Auto) 100 Sodium 141 142 Potassium 3.9 3.2 L Chloride 112 H 114 H Carbon Dioxide 22 23 BUN 40 H 30 H Creatinine 0.80 0.69 Estimated GFR > 60 > 60 BUN/Creatinine Ratio 50.0 H 43.5 H Glucose 240 H 97 D Calcium 9.4 9.3 Magnesium 1.9 PFSH Medical History BPH (benign prostatic hyperplasia) CAD (coronary artery disease) HTN (hypertension) Diabetes type 2, uncontrolled Hemiparesis 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 Social History household members: none Smoking Status: Never smoker alcohol intake: current Assessment & Plan Assessment & Plan narrative: (1) Sepsis due to UTI with metabolic encephalopathy and hypotension - SOFA score of 2 with acute metabolic encephalopathy and MAP <70, BP improved with initial fluids. - stopped additional fluids with history of HFpEF. Will restart home bumex today with increased LE edema. - TTE with hyperdynamic function, LVH. - continue ceftriaxone for probable urinary source for 7 days, though cultures are negative. - does have history of chronic leukocytosis, but is slightly up from his usual value around 15K. Improved slightly to 18K today. - follow up cultures of urine and blood, thus far these are without growth. (2) Acute blood loss anemia, secondary to GI bleeding - shortly after admission, patient with dark stools. Continue to trend h/h as has been slowly downtrending. - continue to hold home asa/plavix - Continue IV PPI BID - Discussed with surgery, EGD today and if negative C-scope tomorrow. - continue to follow h/h. (3) Diabetes type 2, uncontrolled: - Patient's glucose has been uncontrolled at living facility according to records. - he has no contraindications to Lantus, unclear why he is on NPH BID. - changed to Lantus 40 U at night initially with increase to 45 U yesterday, consider meal time addition depending on glucose control moving forward. Glucose much improved this morning. Will watch a bit longer glucose control before making changes. Will also be NPO potentially so don't make too many adjustments upward on insulin therapy. (4) CAD (coronary artery disease): - hold asa and plavix in setting of GI bleeding. - unclear when this was found or if recent stent placement based on facility records. - TTE as noted above (5) HTN (hypertension): hold home lisinopril, but resume home bumex after OR. (6) Hemiparesis 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: holding home asa an plavix as noted above (7) BPH (benign prostatic hyperplasia): - okay to continue flomax Code: Full, POLST form in chart. Surrogate is daughter. Dispo: inpatient. continuing to evaluate GI Bleeding and glucose control now Quality VTE Deep Vein Thrombosis/Pulmonary Embolism Present on Admission: No
[2023-03-02] MEDS: LACTATED RINGERS 1,000 ML 42 ML IV (09:30)
--- NOTE | 2023-03-02 09:33 | P.CONS_ITS ---
History of Present Illness Consult details Date Patient Seen: 03/02/23 Time Patient Seen: 09:33 Chief complaint: High Blood Sugar Narrative: 77-year-old man with a history of stroke and insulin-dependent diabetes admitted hospital with a urinary tract infection. He has developed melanotic stool takes Plavix and aspirin. He is remained hemodynamically stable. Most recent hematocrit 25 today, platelets 321. Antiplatelet medications have been held he has been receiving Protonix but despite this he continues to bleed. Meds Home Medications and Allergies Home Medications Medication Instructions Recorded Confirmed Type aspirin 81 mg tablet,delayed 81 mg PO QDAY ##0 05/04/16 02/27/23 History release bumetanide 1 mg tablet 1.5 mg PO BID ##0 05/04/16 02/27/23 History clopidogrel 75 mg tablet 75 mg PO QDAY ##0 05/04/16 02/27/23 History insulin aspart U-100 100 unit/mL See Rx Instructions .Route 05/04/16 02/27/23 History subcutaneous cartridge (Novolog .COMPLEX ##0 PenFill U-100 Insulin aspart) magnesium hydroxide 2,400 mg/10 mL 30 ml PO DAILY PRN Constipation ##0 05/04/16 02/27/23 History oral suspension (Milk Of Magnesia Concentrated) polyethylene glycol 3350 17 17 g PO DAILY ##0 05/04/16 02/27/23 History gram/dose oral powder (Miralax) potassium chloride 8 mEq 40 meq PO DAILY ##0 05/04/16 02/27/23 History tablet,extended release (Klor-Con) docusate sodium 100 mg tablet 100 mg PO DAILY 10/26/18 02/27/23 History insulin NPH isoph U-100 human 100 22 unit SUBCUT BID 10/26/18 02/27/23 History unit/mL subcutaneous suspension (Novolin N NPH U-100 Insulin isophane) metformin 500 mg tablet 1,000 mg PO BID 10/26/18 02/27/23 History oxycodone 5 mg tablet 5 mg Q6H PRN Pain (Scale Score 4-6) 10/26/18 02/27/23 History lisinopril 2.5 mg tablet 2.5 mg PO DAILY 02/27/23 02/27/23 History tamsulosin 0.4 mg capsule 0.4 mg PO BEDTIME 02/27/23 02/27/23 History Allergies Allergy/AdvReac Type Severity Reaction Status Date / Time ciprofloxacin [From CIPRO] Allergy Unknown Verified 02/27/23 14:20 doxylamine [DOXYLAMINE] Allergy Unknown Verified 02/27/23 14:20 Sulfa (Sulfonamide Allergy Unknown Verified 02/27/23 14:20 Antibiotics) [SULFA (SULFONAMIDE ANTIBIOTICS)] vancomycin [From VANCOCIN] Allergy Unknown Verified 02/27/23 14:20 doxycycline Allergy Verified 02/27/23 15:47 Penicillins Allergy Verified 02/27/23 15:47 Exam Vital Signs (past 8 hours): - 03/02/23 01:45 03/02/23 02:00 03/02/23 02:15 Temperature Pulse Rate 65 60 61 Respiratory Rate 11 L 16 17 Blood Pressure Pulse Oximetry 96 97 97 Oxygen Delivery Method 03/02/23 02:30 03/02/23 02:45 03/02/23 03:00 Temperature Pulse Rate 60 62 63 Respiratory Rate 18 15 14 Blood Pressure Pulse Oximetry 99 98 98 Oxygen Delivery Method 03/02/23 03:15 03/02/23 03:30 03/02/23 03:45 Temperature Pulse Rate 65 64 63 Respiratory Rate 14 15 16 Blood Pressure Pulse Oximetry 98 96 97 Oxygen Delivery Method 03/02/23 04:00 03/02/23 04:03 03/02/23 04:03 Temperature Pulse Rate 66 70 Respiratory Rate 15 19 Blood Pressure 135/65 Pulse Oximetry 97 97 Oxygen Delivery Method 03/02/23 04:15 03/02/23 04:22 03/02/23 04:30 Temperature 97.7 F Pulse Rate 91 H 72 66 Respiratory Rate 20 16 15 Blood Pressure 135/63 Pulse Oximetry 100 99 97 Oxygen Delivery Method 03/02/23 04:45 03/02/23 05:00 03/02/23 05:15 Temperature Pulse Rate 67 66 64 Respiratory Rate 13 13 13 Blood Pressure Pulse Oximetry 97 96 98 Oxygen Delivery Method 03/02/23 05:30 03/02/23 05:45 03/02/23 06:00 Temperature Pulse Rate 62 63 64 Respiratory Rate 15 14 16 Blood Pressure Pulse Oximetry 97 98 99 Oxygen Delivery Method 03/02/23 06:15 03/02/23 06:30 03/02/23 06:45 Temperature Pulse Rate 59 L 66 62 Respiratory Rate 14 17 14 Blood Pressure Pulse Oximetry 98 99 98 Oxygen Delivery Method 03/02/23 07:00 03/02/23 07:00 03/02/23 07:15 Temperature Pulse Rate 62 62 Respiratory Rate 13 14 Blood Pressure Pulse Oximetry 99 98 Oxygen Delivery Method Room Air 03/02/23 07:30 03/02/23 07:45 03/02/23 07:50 Temperature Pulse Rate 61 54 L 73 Respiratory Rate 14 15 12 Blood Pressure Pulse Oximetry 97 98 99 Oxygen Delivery Method 03/02/23 07:50 03/02/23 08:00 03/02/23 08:15 Temperature 97.8 F Pulse Rate 65 69 Respiratory Rate 14 13 Blood Pressure 134/61 Pulse Oximetry 98 97 Oxygen Delivery Method 03/02/23 09:27 Temperature 98.1 F Pulse Rate 74 Respiratory Rate 16 Blood Pressure 118/69 Pulse Oximetry 98 Oxygen Delivery Method Room Air Oxygen Delivery Method Room Air Narrative Exam Narrative: General elderly man alert oriented no acute distress Chest nonlabored respiration Abdomen soft nontender nondistended Objective Labs 03/02/23 04:10 03/02/23 04:10 Labs: Laboratory Results - last 24 hr 03/01/23 03/02/23 15:05 04:10 WBC 18.5 H RBC 2.79 L Hgb 8.2 L Hct 25.0 L MCV 89.8 MCH 29.6 MCHC 32.9 RDW 15.5 H Plt Count 321 Neut % (Auto) 46.5 L D Lymph % (Auto) 37.8 [place] % (Auto) 9.7 Eos % (Auto) 5.4 H Baso % (Auto) 0.6 Neut # (Auto) 8600 H Lymph # (Auto) 7000 H [place] # (Auto) 1800 H Eos # (Auto) 1000 H Baso # (Auto) 100 Sodium 141 142 Potassium 3.9 3.2 L Chloride 112 H 114 H Carbon Dioxide 22 23 BUN 40 H 30 H Creatinine 0.80 0.69 Estimated GFR > 60 > 60 BUN/Creatinine Ratio 50.0 H 43.5 H Glucose 240 H 97 D Calcium 9.4 9.3 Magnesium 1.9 PFSH Medical History BPH (benign prostatic hyperplasia) CAD (coronary artery disease) HTN (hypertension) Diabetes type 2, uncontrolled Hemiparesis 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 Social History household members: none Tobacco & Substance Use Smoking Status: Never smoker alcohol intake: current Assessment & Plan Assessment and plan (1) GI bleed: Qualifiers: GI bleed type/associated pathology: unspecified gastrointestinal hemorrhage type Qualified Code(s): K92.2 - Gastrointestinal hemorrhage, unspecified Status: Acute Assessment & Plan narrative: 77-year-old man with history of stroke and insulin-dependent diabetes admitted with a urinary tract infection who has developed a GI bleed hemodynamically stable. Appears to be upper in source. We will proceed with esophagoduodenoscopy. Overview of the operation discussed. Procedural risks including bleeding, intestinal injury discussed. Questions have been answered he is in agreement with this plan. Provides his consent to proceed.
--- NOTE | 2023-03-02 09:51 | PM.OP.EGD ---
Operative Date/Time/Diagnoses Date of procedure: 03/02/23 Time of procedure: 09:51 Pre-op diagnosis: GI bleed Post-op diagnosis: other (Gastric ulcer) Procedure & Clinicians Study performed: Esophagoduodenoscopy Same procedure as scheduled: Yes Indications: 77-year-old male admitted with urinary tract infection who developed a hemodynamically stable GI bleed likely upper. Taken for diagnostic EGD. Surgeon: Sachin Manuel Procedure Notes Procedure in detail: The history and physical was performed/updated and the patient is ASA class is 3. The procedure was discussed in detail with the patient. Potential risks complications including infection, bleeding, missed diagnosis, perforation, need for surgery, and were explained. Their questions were answered and informed consent was obtained. Patient was placed supine. Time out was performed. Procedural sedation was administered by Anesthesia. A bite block was placed. the scope was inserted into the mouth and advanced through the esophagus and into the stomach. The stomach was notable for a healing gastric ulcer approximately 1 cm within the fundus no active bleeding or visible, the vessel clot was left in place. Biopsy of the stomach was taken adjacent to the ulcer. Pylorus was intubated the duodenum was inspected to the 2nd portion was normal. Scope was carefully withdrawn the stomach was desufflated and the scope was removed from the esophagus. Esophagus was unremarkable. The patient tolerated the procedure well and will be discharged when they meet criteria. Specimen(s): other (Gastric) Impression: Healing gastric ulcer Post-procedure Plan for aftercare: Continue PPI and hold aspirin and Plavix Disposition: Acute Care
[2023-03-02] MEDS: METOPROLOL ER 25 MG TABLET 12.5 MG PO (11:10)
[2023-03-02] MEDS: BUMETANIDE 1 MG TABLET 1.5 MG PO ×2 (11:11→20:46)
[2023-03-02] MEDS: INSULIN LISPRO 100 UNIT/ML 3ML VIAL SUBCUT ×2 (17:09→20:55)
[2023-03-02] MEDS: cefTRIAXone 1,000 MG in SODIUM CHLORIDE 0.9% 100 ML 100 MG IV (20:45)
[2023-03-02] MEDS: TAMSULOSIN 0.4 MG CAPSULE PO (20:46)
[2023-03-02] MEDS: SENNOSIDES 8.6 MG TABLET 17.2 MG PO (20:46)
[2023-03-02] MEDS: ACETAMINOPHEN 325 MG TABLET 650 MG PO (20:47)
[2023-03-02] MEDS: MELATONIN 3 MG TABLET 9 MG PO (20:47)
[2023-03-02] MEDS: INSULIN GLARGINE 100 UNIT/ML 3ML PEN 45 UNIT SUBCUT (20:56)
[2023-03-03] VITALS (48 sets, daily range): BP systolic 106–146; BP diastolic 55–68; PULSE 62–94; RESP 9–20; TEMP 36.3–36.8; O2SAT 95–99
[2023-03-03 05:58] LABS: Add Manual Diff / Slide Review NO; Basophils Absolute Auto 100 /uL (0-100); Basophils Percent Auto 0.6 % (0-2); Eosinophils Absolute Auto 800 /uL (0-450); Eosinophils Percent Auto 5.6 % (2-4); Hematocrit 25.4 % (41-53); Hemoglobin 8.4 g/dL (13.5-17.5); Lymphocytes Absolute Auto 4700 /uL (1100-4500); Lymphocytes Percent Auto 34.5 % (25-40); Mean Corpuscular HGB Conc 32.9 % (30-36); Mean Corpuscular Hemoglobin 29.5 PG (26-34); Mean Corpuscular Volume 89.7 fL (80-100); Monocytes Absolute Auto 2000 /uL (0-900); Monocytes Percent Auto 14.8 % (3-14); Neutrophils Absolute Auto 6100 /uL (1500-7000); Neutrophils Percent Auto 44.5 % (50-75); Platelet Count 386 X10^3/uL (150-400); Red Blood Cell Count 2.83 X10^6/uL (4.5-5.9); Red Cell Distribution Width 15.6 % (11.6-14.8); White Blood Cell Count 13.7 X10^3/uL (4.5-11.0)
[2023-03-03 06:12] LABS: Calcium 8.8 mg/dL (8.4-10.2); Carbon Dioxide 28 mmol/L (22-32); Chloride 109 mmol/L (98-107); Estimated Glomerular Filt Rate > 60 mL/min (>60); Glucose 60 mg/dL (80-110); Magnesium 1.7 mg/dL (1.6-2.3); Potassium 2.8 mmol/L (3.4-5.1); Sodium 142 mmol/L (137-145)
[2023-03-03 06:13] LABS: BUN Creatinine Ratio 35.3 (6-22); Blood Urea Nitrogen 24 mg/dL (9-20); HEMOLYSIS 30 (0-50)
[2023-03-03] MEDS: POTASSIUM CHLORIDE 20 MEQ TAB 40 MEQ PO ×2 (08:27→13:32)
[2023-03-03] MEDS: PANTOPRAZOLE 40 MG VIAL IV ×2 (08:27→20:30)
[2023-03-03] MEDS: BUMETANIDE 1 MG TABLET 1.5 MG PO ×2 (08:28→20:30)
[2023-03-03] MEDS: METOPROLOL ER 25 MG TABLET 12.5 MG PO (08:28)
--- NOTE | 2023-03-03 08:48 | PM.PN.1 ---
Subjective Subjective Date Patient Seen: 03/03/23 Interval history: 77 y/o long-term resident of nursing facility with PMH of DM, CAD, HTN, CHFpEF admitted with acute encephalopathy, elevated glucose, sepsis, and GI bleeding. He is much more alert today. He reports no complaints. h/h stable today again. EGD showed a gastric ulcer. Changed insulin management given poor control recently, glucose was 60 this morning, but last night was 300. Exam Vital Signs (past 8 hours): - 03/03/23 03:38 03/03/23 08:00 Temperature 97.3 F L 98.0 F Pulse Rate 65 72 Respiratory Rate 13 15 Blood Pressure 106/55 L 146/68 H Pulse Oximetry 96 98 Oxygen Flow Rate 0 0 Oxygen Delivery Method Room Air Oxygen Flow Rate 0 Narrative Exam Narrative: Gen: elderly male in no acute distress, improved color today. CV: RRR no m/r/g Pulm: shallow breaths but cta b/l Abd: S NT ND Ext: bilateral 2-3+ pitting edema, more prominent in the feet. Neuro: more alert today, now to self and hospital, R hemiparesis. Objective Labs 03/03/23 05:45 03/03/23 05:45 Labs: Laboratory Results - last 24 hr 03/03/23 05:45 WBC 13.7 H RBC 2.83 L Hgb 8.4 L Hct 25.4 L MCV 89.7 MCH 29.5 MCHC 32.9 RDW 15.6 H Plt Count 386 Neut % (Auto) 44.5 L Lymph % (Auto) 34.5 [place] % (Auto) 14.8 H Eos % (Auto) 5.6 H Baso % (Auto) 0.6 Neut # (Auto) 6100 Lymph # (Auto) 4700 H [place] # (Auto) 2000 H Eos # (Auto) 800 H Baso # (Auto) 100 Sodium 142 Potassium 2.8 L Chloride 109 H Carbon Dioxide 28 BUN 24 H Creatinine 0.68 Estimated GFR > 60 BUN/Creatinine Ratio 35.3 H Glucose 60 L Calcium 8.8 Magnesium 1.7 PFSH Medical History BPH (benign prostatic hyperplasia) CAD (coronary artery disease) HTN (hypertension) Diabetes type 2, uncontrolled Hemiparesis 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 Social History household members: none Smoking Status: Never smoker alcohol intake: current Assessment & Plan Assessment & Plan narrative: (1) Sepsis due to UTI with metabolic encephalopathy and hypotension - SOFA score of 2 with acute metabolic encephalopathy and MAP <70, BP improved with initial fluids. - stopped additional fluids with history of HFpEF. Restarted home bumex yesterday with increased LE edema - TTE with hyperdynamic function, LVH. - continue ceftriaxone for probable urinary source for 7 days, though cultures are negative. - does have history of chronic leukocytosis, but is slightly up from his usual value around 15K. Improved now to around baseline at 13.7. - follow up cultures of urine and blood, thus far these are without growth. (2) Acute blood loss anemia, secondary to GI bleeding - shortly after admission, patient with large melenotic stools. Continue to trend h/h as has been slowly downtrending, improved from 8.2 to 8.4 today. - continue to hold home asa/plavix, resume aspirin after 3-5 days. - EGD with gastric ulcer. Continue IV PPI for now, transition to oral tomorrow. - continue to follow h/h. (3) Diabetes type 2, uncontrolled: - Patient's glucose has been uncontrolled at living facility according to records. - he has no contraindications to Lantus, unclear why he was on NPH BID. - changed to Lantus 40 U at night initially with increase to 45 U yesterday, consider meal time addition depending on glucose control moving forward. Glucose was 60 this morning but >300 at dinner. Added 5 U TID AC for meals, decreased lantus to 40 again. Will need continued adjustments prior to return to assisted living. (4) CAD (coronary artery disease): - hold asa and plavix in setting of GI bleeding. Can resume asa in 3-5 days after PPI, or as soon as tomorrow. - unclear if recent stent placement based on facility records. - TTE as noted above (5) HTN (hypertension): hold home lisinopril, but resume home bumex after OR. (6) Hemiparesis 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: holding home asa an plavix as noted above (7) BPH (benign prostatic hyperplasia): - okay to continue flomax Code: Full, POLST form in chart. Surrogate is daughter. Dispo: inpatient. still watching h/h trend and adjusting insulin therapies. Possible discharge back to assisted living facility in 1-2 days. Quality VTE Deep Vein Thrombosis/Pulmonary Embolism Present on Admission: No
[2023-03-03] MEDS: MAGNESIUM CHLORIDE 64 MG TABLET 128 MG PO (09:41)
[2023-03-03] MEDS: INSULIN LISPRO 100 UNIT/ML 3ML VIAL SUBCUT ×3 (13:28→17:27)
--- NOTE | 2023-03-03 13:28 | CM.DPC ---
DCP Cont: Per MD, pt making improvements but want to monitor his labs for H&H and blood sugars and might be ready for d/c tomorrow Tues if he remains stable. CURLY faxed clinicals to [facility] to review and called RN station and left a msg requesting call back to determine if bedside assessment needed. No return call. CURLY called back to Cafe Assistant Eric and she confirms they received the clinicals to review and pt does not need assessment before he returns as he is not motivated to leave his bed at baseline and not interested in ambulating. Eric states they will transport him at discharge. CURLY met bedside with pt and explained role and he confirms he is agreeable with return to [facility] at d/c. Pt states his Dtr is in [place] and comes to visit sometimes and that he has been talking to her via phone and she is aware he is admitted to the hospital. Pt does not anticipate any needs at d/c. Plan: SW to follow for plan of d/c back to [facility] when medically stable via facility van. BLUE Kenney
[2023-03-03] MEDS: cefTRIAXone 1,000 MG in SODIUM CHLORIDE 0.9% 100 ML 100 MG IV (20:30)
[2023-03-03] MEDS: MELATONIN 3 MG TABLET 9 MG PO (20:30)
[2023-03-03] MEDS: OXYCODONE/ACETAMINOPHEN 5/325 TABLET 1 TAB PO (20:30)
[2023-03-03] MEDS: TAMSULOSIN 0.4 MG CAPSULE PO (20:30)
[2023-03-03] MEDS: ACETAMINOPHEN 325 MG TABLET 650 MG PO (20:30)
[2023-03-03] MEDS: SENNOSIDES 8.6 MG TABLET 17.2 MG PO (20:30)
[2023-03-03] MEDS: INSULIN GLARGINE 100 UNIT/ML 3ML PEN 40 UNIT SUBCUT (20:53)
[2023-03-04] VITALS (7 sets, daily range): BP systolic 110–167; BP diastolic 58–74; PULSE 63–71; RESP 17–18; TEMP 36.2–36.6; O2SAT 96–97
[2023-03-04 05:46] LABS: Add Manual Diff / Slide Review NO; Basophils Absolute Auto 200 /uL (0-100); Basophils Percent Auto 1.1 % (0-2); Eosinophils Absolute Auto 800 /uL (0-450); Eosinophils Percent Auto 5.3 % (2-4); Hemoglobin 8.4 g/dL (13.5-17.5); Lymphocytes Absolute Auto 5600 /uL (1100-4500); Lymphocytes Percent Auto 36.5 % (25-40); Mean Corpuscular HGB Conc 33.7 % (30-36); Mean Corpuscular Hemoglobin 30.4 PG (26-34); Mean Corpuscular Volume 90.2 fL (80-100); Monocytes Absolute Auto 1500 /uL (0-900); Monocytes Percent Auto 9.6 % (3-14); Neutrophils Absolute Auto 7300 /uL (1500-7000); Neutrophils Percent Auto 47.5 % (50-75); Platelet Count 427 X10^3/uL (150-400); Red Blood Cell Count 2.77 X10^6/uL (4.5-5.9); Red Cell Distribution Width 15.7 % (11.6-14.8); White Blood Cell Count 15.4 X10^3/uL (4.5-11.0)
[2023-03-04 07:34] LABS: BUN Creatinine Ratio 22.9 (6-22); Blood Urea Nitrogen 19 mg/dL (9-20); Calcium 8.8 mg/dL (8.4-10.2); Carbon Dioxide 29 mmol/L (22-32); Chloride 107 mmol/L (98-107); Estimated Glomerular Filt Rate > 60 mL/min (>60); Glucose 50 mg/dL (80-110); HEMOLYSIS < 15 (0-50); Magnesium 1.8 mg/dL (1.6-2.3); Potassium 2.8 mmol/L (3.4-5.1); Sodium 140 mmol/L (137-145)
[2023-03-04] MEDS: INSULIN LISPRO 100 UNIT/ML 3ML VIAL SUBCUT (08:14)
[2023-03-04] MEDS: POTASSIUM CHLORIDE IN WATER 10 MEQ/100 ML PIGGYBACK 100 MEQ IV ×4 (09:14→11:52)
[2023-03-04] MEDS: METOPROLOL ER 25 MG TABLET 12.5 MG PO (09:15)
[2023-03-04] MEDS: PANTOPRAZOLE 40 MG VIAL IV (09:15)
[2023-03-04] MEDS: OXYCODONE/ACETAMINOPHEN 5/325 TABLET 1 TAB PO (10:13)
--- NOTE | 2023-03-04 10:52 | CM.DPC ---
Addendum entered by BLUE Kenney 03/04/23 14:23: ADD: CURLY confirmed with Eric at [facility] that transport can pickup around 1300 and SW provided RN the report number to call and pt agreeable with return today. BF Original Note: DCP Discharge TA Per MD, pt to have IV potassium this morning and then should be stable for discharge back to [facility] later today and signed pt's med list. CURLY faxed signed med list and MD orders to [facility] to review (no d/c summ available yet) and called [facility] [employer] Super[facility] Eric and updated on the fax and that pt would be ready for pickup sometime after 1300. Eric will review and work on setting up transport. Plan: CURLY to follow for plan of d/c back to [facility] via facility van today and return call to confirm time and RN report. BLUE Kenney
[2023-03-04] MEDS: POTASSIUM CHLORIDE 20 MEQ TAB 40 MEQ PO (12:49)
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
== END 2023-03-04 13:21 | DRG 871 ==
LOC: ED 19:29 → AC 19:53 → ICU 21:24
PROVIDERS: Emergency Medicine; Internal Medicine; Surgery; Admitting Provider Internal Medicine; Emergency Provider Emergency Medicine; PCP Internal Medicine; Referring Provider Emergency Medicine; Visit Provider Internal Medicine
PROC: 0DJ08ZZ Inspection of Upper Intestinal Tract, Via Natural or Artificial Opening Endoscopic (ICD-10-PCS; CPT 43235; principal; 2023-03-02 11:00)
DX: A41.9 Sepsis, unspecified organism (principal); G93.41 Metabolic encephalopathy; I50.21 Acute systolic (congestive) heart failure; K25.4 Chronic or unspecified gastric ulcer with hemorrhage; N39.0 Urinary tract infection, site not specified; I69.951 Hemiplegia and hemiparesis following unspecified cerebrovascular disease affecting right dominant side; D62 Acute posthemorrhagic anemia; E11.65 Type 2 diabetes mellitus with hyperglycemia; I25.10 Atherosclerotic heart disease of native coronary artery without angina pectoris; N40.0 Benign prostatic hyperplasia without lower urinary tract symptoms; I11.0 Hypertensive heart disease with heart failure; I95.9 Hypotension, unspecified; Z79.4 Long term (current) use of insulin; Z79.84 Long term (current) use of oral hypoglycemic drugs
CPT/HCPCS: 0241U; 36415; 51701; 71045; 80048; 80053; 81001; 82805; 82962; 83036; 83605; 83690; 83735; 84145; 85014; 85018; 85025; 87040; 87086; 87797; 93005; 96365; 96372; 99284; C8929; C9113; J0696; J1650; J1815; J2704; J3010; Q9957

== ENCOUNTER → 2023-03-19 18:26 | Outpatient (ROUT) | payer MEDICARE, MEDICAID, SELFPAY ==
[2023-02-27 21:28] VITALS: BMI 32.5
[2023-03-19 18:43] LABS: Add Manual Diff / Slide Review NO; Basophils Absolute Auto 200 /uL (0-100); Basophils Percent Auto 1.6 % (0-2); Eosinophils Absolute Auto 1000 /uL (0-450); Hematocrit 25.7 % (41-53); Hemoglobin 8.2 g/dL (13.5-17.5); Lymphocytes Absolute Auto 4200 /uL (1100-4500); Lymphocytes Percent Auto 34.5 % (25-40); Mean Corpuscular HGB Conc 31.7 % (30-36); Mean Corpuscular Volume 85.2 fL (80-100); Monocytes Absolute Auto 1500 /uL (0-900); Neutrophils Absolute Auto 5400 /uL (1500-7000); Neutrophils Percent Auto 43.9 % (50-75); Platelet Count 772 X10^3/uL (150-400); Red Blood Cell Count 3.02 X10^6/uL (4.5-5.9); Red Cell Distribution Width 17.3 % (11.6-14.8); White Blood Cell Count 12.3 X10^3/uL (4.5-11.0)
[2023-03-19 19:26] LABS: Hypochromasia 2+; Target Cells 2+
[2023-03-19 19:27] LABS: Anisocytosis 2+; Burr Cells 2+
[2023-03-19 19:29] LABS: Platelet Estimate 668
[2023-03-19 19:42] LABS: BUN Creatinine Ratio 20.8 (6-22); Blood Urea Nitrogen 15 mg/dL (9-20); Calcium 9.3 mg/dL (8.4-10.2); Carbon Dioxide 25 mmol/L (22-32); Chloride 106 mmol/L (98-107); Estimated Glomerular Filt Rate > 60 mL/min (>60); Glucose 195 mg/dL (80-110); HEMOLYSIS < 15 (0-50); Potassium 4.8 mmol/L (3.4-5.1); Sodium 136 mmol/L (137-145)
== END ==
PROVIDERS: PCP Internal Medicine; Visit Provider Internal Medicine
DX: K92.2 Gastrointestinal hemorrhage, unspecified (principal)
CPT/HCPCS: 80048; 85025

== ENCOUNTER → 2023-04-01 07:46 | Outpatient (ROUT) | payer MEDICARE, MEDICAID, SELFPAY ==
[2023-02-27 21:28] VITALS: BMI 32.5
[2023-04-01 09:05] LABS: Add Manual Diff / Slide Review NO; Basophils Absolute Auto 100 /uL (0-100); Basophils Percent Auto 0.9 % (0-2); Eosinophils Absolute Auto 700 /uL (0-450); Hematocrit 28.4 % (41-53); Hemoglobin 9.1 g/dL (13.5-17.5); Lymphocytes Absolute Auto 5100 /uL (1100-4500); Lymphocytes Percent Auto 43.2 % (25-40); Mean Corpuscular HGB Conc 31.9 % (30-36); Mean Corpuscular Hemoglobin 26.1 PG (26-34); Mean Corpuscular Volume 81.7 fL (80-100); Monocytes Absolute Auto 1100 /uL (0-900); Monocytes Percent Auto 9.4 % (3-14); Neutrophils Absolute Auto 4800 /uL (1500-7000); Neutrophils Percent Auto 40.5 % (50-75); Platelet Count 761 X10^3/uL (150-400); Red Blood Cell Count 3.48 X10^6/uL (4.5-5.9); Red Cell Distribution Width 19.1 % (11.6-14.8); White Blood Cell Count 11.8 X10^3/uL (4.5-11.0)
[2023-04-01 09:50] LABS: Anisocytosis 1+; Poikilocytosis 1+
== END ==
PROVIDERS: PCP Internal Medicine; Visit Provider Internal Medicine
DX: D64.9 Anemia, unspecified (principal)
CPT/HCPCS: 36415; 85025

== ENCOUNTER → 2023-04-08 07:28 | Outpatient (ROUT) | payer MEDICARE, MEDICAID, SELFPAY ==
[2023-02-27 21:28] VITALS: BMI 32.5
[2023-04-08 07:43] LABS: Add Manual Diff / Slide Review NO; Basophils Absolute Auto 200 /uL (0-100); Basophils Percent Auto 1.5 % (0-2); Eosinophils Absolute Auto 700 /uL (0-450); Eosinophils Percent Auto 5.7 % (2-4); Lymphocytes Absolute Auto 3800 /uL (1100-4500); Lymphocytes Percent Auto 30.8 % (25-40); Mean Corpuscular HGB Conc 31.1 % (30-36); Mean Corpuscular Hemoglobin 24.8 PG (26-34); Mean Corpuscular Volume 79.9 fL (80-100); Monocytes Absolute Auto 1400 /uL (0-900); Monocytes Percent Auto 11.1 % (3-14); Neutrophils Absolute Auto 6200 /uL (1500-7000); Neutrophils Percent Auto 50.9 % (50-75); Platelet Count 798 X10^3/uL (150-400); Red Blood Cell Count 3.63 X10^6/uL (4.5-5.9); White Blood Cell Count 12.3 X10^3/uL (4.5-11.0)
[2023-04-08 07:47] LABS: BUN Creatinine Ratio 19.6 (6-22); Blood Urea Nitrogen 19 mg/dL (9-20); Calcium 9.4 mg/dL (8.4-10.2); Carbon Dioxide 30 mmol/L (22-32); Chloride 102 mmol/L (98-107); Estimated Glomerular Filt Rate > 60 mL/min (>60); Glucose 141 mg/dL (80-110); HEMOLYSIS < 15 (0-50); Potassium 3.9 mmol/L (3.4-5.1); Sodium 137 mmol/L (137-145)
[2023-04-08 07:55] LABS: Platelet Estimate Increased on smear; Schistocytes 1+
[2023-04-08 07:56] LABS: Anisocytosis 1+; Target Cells 1+
== END ==
PROVIDERS: PCP Internal Medicine; Visit Provider Internal Medicine
DX: D64.9 Anemia, unspecified (principal); E87.6 Hypokalemia
CPT/HCPCS: 36415; 80048; 85025

== ENCOUNTER → 2023-04-15 08:31 | Outpatient (ROUT) | payer MEDICARE, MEDICAID, SELFPAY ==
[2023-02-27 21:28] VITALS: BMI 32.5
[2023-04-15 09:50] LABS: Hemoglobin 9.1 g/dL (13.5-17.5); Mean Corpuscular HGB Conc 31.6 % (30-36); Mean Corpuscular Hemoglobin 25.3 PG (26-34); Red Blood Cell Count 3.62 X10^6/uL (4.5-5.9); Red Cell Distribution Width 19.9 % (11.6-14.8); White Blood Cell Count 11.2 X10^3/uL (4.5-11.0)
[2023-04-15 10:05] LABS: Hemoglobin A1C% w Est Avg Glu 8.7 % (4.0-6.0)
[2023-04-15 10:08] LABS: Add Manual Diff / Slide Review YES; Platelet Count 918 X10^3/uL (150-400)
[2023-04-15 10:26] LABS: Alanine Aminotransferase 14 IU/L (<50); Albumin 3.3 g/dL (3.5-5.0); Albumin Globulin Ratio 1.1 (1.0-2.8); Alkaline Phosphatase 102 U/L (38-126); Aspartate Aminotransferase 17 IU/L (17-59); BUN Creatinine Ratio 19.8 (6-22); Bilirubin Total 0.3 mg/dL (0.2-1.3); Blood Urea Nitrogen 19 mg/dL (9-20); Carbon Dioxide 30 mmol/L (22-32); Chloride 103 mmol/L (98-107); Estimated Glomerular Filt Rate > 60 mL/min (>60); Globulin 2.9 g/dL (1.7-4.1); Glucose 86 mg/dL (80-110); HEMOLYSIS < 15 (0-50); Sodium 139 mmol/L (137-145); Total Protein 6.2 g/dL (6.3-8.2)
[2023-04-15 10:34] LABS: Neutrophils Absolute Manual 5376 /uL (3000-5900); Total Cells Counted 100
[2023-04-15 10:35] LABS: Anisocytosis 1+; Schistocytes 1+
[2023-04-15 10:36] LABS: Target Cells 1+
== END ==
PROVIDERS: PCP Internal Medicine; Visit Provider Internal Medicine
DX: D64.9 Anemia, unspecified (principal); E11.9 Type 2 diabetes mellitus without complications
CPT/HCPCS: 36415; 80053; 83036; 85007; 85025

== ENCOUNTER → 2023-05-06 15:24 | Outpatient (ROUT) | payer MEDICARE, MEDICAID, SELFPAY ==
[2023-02-27 21:28] VITALS: BMI 32.5
[2023-05-06 15:33] LABS: Hematocrit 30.3 % (41-53); Hemoglobin 9.4 g/dL (13.5-17.5); Mean Corpuscular Hemoglobin 23.2 PG (26-34); Mean Corpuscular Volume 74.8 fL (80-100); Platelet Count 741 X10^3/uL (150-400); Red Blood Cell Count 4.05 X10^6/uL (4.5-5.9); Red Cell Distribution Width 21.5 % (11.6-14.8); White Blood Cell Count 12.4 X10^3/uL (4.5-11.0)
[2023-05-06 15:40] LABS: Add Manual Diff / Slide Review YES
[2023-05-06 15:46] LABS: Anisocytosis 2+; Neutrophils Absolute Manual 4960 /uL (3000-5900); Total Cells Counted 100
[2023-05-06 15:47] LABS: Hypochromasia 1+; Poikilocytosis 1+
[2023-05-06 15:50] LABS: BUN Creatinine Ratio 20.9 (6-22); Blood Urea Nitrogen 23 mg/dL (9-20); Calcium 9.8 mg/dL (8.4-10.2); Carbon Dioxide 29 mmol/L (22-32); Chloride 98 mmol/L (98-107); Estimated Glomerular Filt Rate > 60 mL/min (>60); Glucose 153 mg/dL (80-110); HEMOLYSIS < 15 (0-50); Potassium 4.6 mmol/L (3.4-5.1); Sodium 136 mmol/L (137-145)
== END ==
PROVIDERS: PCP Internal Medicine; Visit Provider Internal Medicine
DX: E11.9 Type 2 diabetes mellitus without complications (principal); I10 Essential (primary) hypertension; K21.9 Gastro-esophageal reflux disease without esophagitis; I50.9 Heart failure, unspecified
CPT/HCPCS: 80048; 85007; 85025

== ENCOUNTER → 2023-06-03 07:35 | Outpatient (ROUT) | payer MEDICARE, MEDICAID, SELFPAY ==
[2023-02-27 21:28] VITALS: BMI 32.5
[2023-06-03 08:20] LABS: Hematocrit 30.4 % (41-53); Hemoglobin 9.6 g/dL (13.5-17.5); Mean Corpuscular HGB Conc 31.5 % (30-36); Mean Corpuscular Hemoglobin 22.8 PG (26-34); Mean Corpuscular Volume 72.6 fL (80-100); Platelet Count 723 X10^3/uL (150-400); Red Blood Cell Count 4.19 X10^6/uL (4.5-5.9); White Blood Cell Count 10.6 X10^3/uL (4.5-11.0)
[2023-06-03 08:21] LABS: Add Manual Diff / Slide Review YES
[2023-06-03 10:27] LABS: Neutrophils Absolute Manual 6148 /uL (3000-5900); Total Cells Counted 100
[2023-06-03 10:28] LABS: Anisocytosis 1+; Poikilocytosis 1+
[2023-06-03 10:29] LABS: Schistocytes 1+; Target Cells 1+
== END ==
PROVIDERS: PCP Internal Medicine; Visit Provider Internal Medicine
DX: D64.9 Anemia, unspecified (principal)
CPT/HCPCS: 36415; 85007; 85025

== ENCOUNTER → 2024-03-11 13:50 | Outpatient (CLI) | payer MEDICARE, MEDICAID, SELFPAY ==
[2023-02-27 21:28] VITALS: BMI 32.5
== END ==
LOC: WC 13:55
PROVIDERS: PCP Internal Medicine; Referring Provider Internal Medicine; Visit Provider Surgery
DX: L97.412 Non-pressure chronic ulcer of right heel and midfoot with fat layer exposed (principal); L97.512 Non-pressure chronic ulcer of other part of right foot with fat layer exposed; E11.621 Type 2 diabetes mellitus with foot ulcer; E11.42 Type 2 diabetes mellitus with diabetic polyneuropathy; R60.0 Localized edema; I73.9 Peripheral vascular disease, unspecified; G82.20 Paraplegia, unspecified; I25.10 Atherosclerotic heart disease of native coronary artery without angina pectoris
CPT/HCPCS: 11042; 87070; 87075; 87205; 99204; 99214

== ENCOUNTER → 2024-03-11 15:18 | Outpatient (CLI) | payer MEDICARE, MEDICAID, SELFPAY ==
[2023-02-27 21:28] VITALS: BMI 32.5
--- NOTE | 2024-03-11 15:20 | DI.US.S_ITS ---
PROCEDURE: US ARTERIAL DUPLEX LE RT INDICATIONS: eval arterial status TECHNIQUE: Color and pulse Doppler interrogation was performed of the right lower extremity arterial system, with image documentation. COMPARISON: None. FINDINGS: Common femoral artery: 70 cm/sec, with triphasic flow. Deep femoral artery: 81 cm/sec, with triphasic flow. Proximal superficial femoral artery: 48 cm/sec, with biphasic flow. Mid superficial femoral artery: 41 cm/sec, with triphasic flow. Distal superficial femoral artery: 49 cm/sec, with triphasic flow. Popliteal artery: 15 cm/sec, with monophasic high resistance flow. Posterior tibial artery: Occluded Anterior tibial artery/dorsalis pedis: 20 cm/sec, with monophasic flow. Camp-scale imaging description: Wide patency from the common femoral through the SFA. The popliteal appears patent. However, there is high resistance monophasic waveform secondary to distal occlusive disease. The posterior tibial is occluded. There is trickle flow in the anterior tibial. IMPRESSION: 1. Wide patency from the common femoral through the SFA and possibly including the popliteal artery. 2. Extensive small vessel disease. Dictated by: Dilan Solano M.D. on 03/11/2024 at 17:18 Approved by: Dilan Solano M.D. on 03/11/2024 at 17:20
== END ==
LOC: US 15:18
PROVIDERS: PCP Internal Medicine; Referring Provider Surgery; Visit Provider Surgery
DX: E11.621 Type 2 diabetes mellitus with foot ulcer (principal); L97.519 Non-pressure chronic ulcer of other part of right foot with unspecified severity; I77.9 Disorder of arteries and arterioles, unspecified
CPT/HCPCS: 87070; 87075; 87205; 93926

== ENCOUNTER → 2024-03-16 15:17 | Outpatient (ROUT) | payer MEDICARE, MEDICAID, SELFPAY ==
[2023-02-27 21:28] VITALS: BMI 32.5
[2024-03-16 15:25] LABS: Add Manual Diff / Slide Review NO; Basophils Absolute Auto 300 /uL (0-100); Basophils Percent Auto 2.4 % (0-2); Eosinophils Absolute Auto 700 /uL (0-450); Eosinophils Percent Auto 5.6 % (2-4); Hematocrit 44.6 % (41-53); Hemoglobin 14.6 g/dL (13.5-17.5); Lymphocytes Absolute Auto 4400 /uL (1100-4500); Lymphocytes Percent Auto 34.4 % (25-40); Mean Corpuscular HGB Conc 32.8 % (30-36); Mean Corpuscular Hemoglobin 29.9 PG (26-34); Mean Corpuscular Volume 91.3 fL (80-100); Monocytes Absolute Auto 1500 /uL (0-900); Monocytes Percent Auto 11.3 % (3-14); Neutrophils Absolute Auto 6000 /uL (1500-7000); Neutrophils Percent Auto 46.3 % (50-75); Platelet Count 529 X10^3/uL (150-400); Red Blood Cell Count 4.89 X10^6/uL (4.5-5.9); Red Cell Distribution Width 14.7 % (11.6-14.8); White Blood Cell Count 12.9 X10^3/uL (4.5-11.0)
[2024-03-16 15:54] LABS: Alanine Aminotransferase 12 IU/L (<50); Albumin 2.8 g/dL (3.5-5.0); Albumin Globulin Ratio 1.1 (1.0-2.8); Alkaline Phosphatase 112 U/L (38-126); Aspartate Aminotransferase 15 IU/L (17-59); BUN Creatinine Ratio 17.5 (6-22); Bilirubin Total 0.4 mg/dL (0.2-1.3); Blood Urea Nitrogen 18 mg/dL (9-20); C-Reactive Protein Quant < 0.5 mg/dL (<1.0); Calcium 9.2 mg/dL (8.4-10.2); Carbon Dioxide 28 mmol/L (22-32); Chloride 102 mmol/L (98-107); Estimated Glomerular Filt Rate > 60 mL/min (>60); Globulin 2.5 g/dL (1.7-4.1); Glucose 203 mg/dL (80-110); HEMOLYSIS < 15 (0-50); Potassium 4.8 mmol/L (3.4-5.1); Sodium 135 mmol/L (137-145); Total Protein 5.3 g/dL (6.3-8.2)
[2024-03-16 16:02] LABS: Erythrocyte Sedimentation Rate 9 MM/HR (0-15)
[2024-03-16 16:40] LABS: Hemoglobin A1C% w Est Avg Glu 7.8 % (4.0-6.0)
== END ==
PROVIDERS: PCP Internal Medicine; Visit Provider Surgery
DX: E11.9 Type 2 diabetes mellitus without complications (principal)
CPT/HCPCS: 80053; 83036; 85025; 85651; 86140

== ENCOUNTER → 2024-03-17 11:01 | Outpatient (CLI) | payer MEDICARE, MEDICAID, SELFPAY ==
[2023-02-27 21:28] VITALS: BMI 32.5
== END ==
LOC: WC 11:07
PROVIDERS: PCP Internal Medicine; Referring Provider Internal Medicine; Visit Provider Surgery
DX: E11.621 Type 2 diabetes mellitus with foot ulcer (principal); E11.42 Type 2 diabetes mellitus with diabetic polyneuropathy; L97.412 Non-pressure chronic ulcer of right heel and midfoot with fat layer exposed; L97.512 Non-pressure chronic ulcer of other part of right foot with fat layer exposed; L97.312 Non-pressure chronic ulcer of right ankle with fat layer exposed; R60.0 Localized edema; L53.9 Erythematous condition, unspecified; I73.9 Peripheral vascular disease, unspecified; Z79.01 Long term (current) use of anticoagulants; Z79.82 Long term (current) use of aspirin
CPT/HCPCS: 99212; 99213

== ENCOUNTER → 2024-03-24 06:15 | Outpatient (CLI) | payer MEDICARE, MEDICAID, SELFPAY ==
[2023-02-27 21:28] VITALS: BMI 32.5
[2024-03-24 07:37] LABS: Hematocrit 46.1 % (41-53); Mean Corpuscular HGB Conc 32.6 % (30-36); Platelet Count 485 X10^3/uL (150-400); Red Blood Cell Count 5.01 X10^6/uL (4.5-5.9); Red Cell Distribution Width 14.9 % (11.6-14.8); White Blood Cell Count 12.6 X10^3/uL (4.5-11.0)
== END ==
PROVIDERS: PCP Internal Medicine; Visit Provider Registered Nurse
DX: D72.829 Elevated white blood cell count, unspecified (principal); E11.621 Type 2 diabetes mellitus with foot ulcer; L97.412 Non-pressure chronic ulcer of right heel and midfoot with fat layer exposed; L97.512 Non-pressure chronic ulcer of other part of right foot with fat layer exposed; L97.312 Non-pressure chronic ulcer of right ankle with fat layer exposed; E11.42 Type 2 diabetes mellitus with diabetic polyneuropathy; L53.8 Other specified erythematous conditions; R60.0 Localized edema
CPT/HCPCS: 36415; 85027; 99214

== ENCOUNTER → 2024-03-24 09:59 | Outpatient (CLI) | payer MEDICARE, MEDICAID, SELFPAY ==
[2023-02-27 21:28] VITALS: BMI 32.5
== END ==
PROVIDERS: PCP Internal Medicine; Referring Provider Internal Medicine; Visit Provider Surgery
DX: E11.621 Type 2 diabetes mellitus with foot ulcer (principal); L97.412 Non-pressure chronic ulcer of right heel and midfoot with fat layer exposed; L97.512 Non-pressure chronic ulcer of other part of right foot with fat layer exposed; L97.312 Non-pressure chronic ulcer of right ankle with fat layer exposed; E11.42 Type 2 diabetes mellitus with diabetic polyneuropathy; L53.8 Other specified erythematous conditions; R60.0 Localized edema
CPT/HCPCS: 99213; 99214

== ENCOUNTER → 2024-03-31 10:50 | Outpatient (CLI) | payer MEDICARE, MEDICAID, SELFPAY ==
[2023-02-27 21:28] VITALS: BMI 32.5
== END ==
PROVIDERS: PCP Internal Medicine; Referring Provider Internal Medicine; Visit Provider Surgery
DX: E11.621 Type 2 diabetes mellitus with foot ulcer (principal); E11.42 Type 2 diabetes mellitus with diabetic polyneuropathy; L97.412 Non-pressure chronic ulcer of right heel and midfoot with fat layer exposed; L97.512 Non-pressure chronic ulcer of other part of right foot with fat layer exposed; L97.312 Non-pressure chronic ulcer of right ankle with fat layer exposed; R60.0 Localized edema; L53.9 Erythematous condition, unspecified; I73.9 Peripheral vascular disease, unspecified
CPT/HCPCS: 99213; 99214

== ENCOUNTER → 2024-03-31 11:52 | Outpatient (CLI) | payer MEDICARE, MEDICAID, SELFPAY ==
[2023-02-27 21:28] VITALS: BMI 32.5
--- NOTE | 2024-03-31 11:55 | DI.RAD.S_ITS ---
PROCEDURE: XR FOOT RT MIN 3V INDICATIONS: eval for osteo TECHNIQUE: 3 views of the foot were acquired. COMPARISON: None. FINDINGS: Examination is limited by osteopenia. Bones: No fractures or dislocations. No suspicious bony lesions. Soft tissues: No tibiotalar joint effusion. Achilles tendon appears normal. IMPRESSION: Limited examination demonstrating no acute fracture. No osseous lesion. If symptoms and/or clinical suspicion for pathology persist, further assessment with repeat, or advanced imaging (e.g., CT, MRI, or bone scan) may be helpful for further assessment. Dictated by: Lady Barnhart M.D. on 03/31/2024 at 14:22 Approved by: Lady Barnhart M.D. on 03/31/2024 at 14:24
--- NOTE | 2024-03-31 12:42 | DI.MRI.S_ITS ---
PROCEDURE: MR FOOT RT WO/W CON INDICATIONS: Eval for osteomyelitis TECHNIQUE: Multiphasic, multisequence MRI of the forefoot was performed, before and after intravenous contrast administration. COMPARISON: [facility], CR, XR FOOT RT MIN 3V, 03/31/2024, 12:07. FINDINGS: Image quality: Excellent. Bones and joints: Marrow signal is grossly unremarkable. No fracture or osseous lesion. Soft tissues: Visualized tendons are within normal limits. Diffuse muscular atrophy is present. No focal fluid collections. Diffuse dorsal subcutaneous STIR signal elevation and enhancement. IMPRESSION: 1. No evidence of osteomyelitis. 2. Dorsal subcutaneous edema versus cellulitis. Dictated by: Lady Barnhart M.D. on 03/31/2024 at 14:54 Approved by: Lady Barnhart M.D. on 03/31/2024 at 14:59
[2024-03-31 13:00] LABS: Add Manual Diff / Slide Review NO; Basophils Absolute Auto 200 /uL (0-100); Basophils Percent Auto 1.3 % (0-2); Eosinophils Absolute Auto 600 /uL (0-450); Eosinophils Percent Auto 4.8 % (2-4); Hematocrit 47.4 % (41-53); Hemoglobin 15.4 g/dL (13.5-17.5); Lymphocytes Absolute Auto 4100 /uL (1100-4500); Lymphocytes Percent Auto 32.6 % (25-40); Mean Corpuscular HGB Conc 32.4 % (30-36); Mean Corpuscular Hemoglobin 29.8 PG (26-34); Mean Corpuscular Volume 91.9 fL (80-100); Monocytes Absolute Auto 1200 /uL (0-900); Monocytes Percent Auto 9.3 % (3-14); Neutrophils Absolute Auto 6600 /uL (1500-7000); Platelet Count 475 X10^3/uL (150-400); Red Blood Cell Count 5.15 X10^6/uL (4.5-5.9); White Blood Cell Count 12.7 X10^3/uL (4.5-11.0)
[2024-03-31 13:11] LABS: Hemoglobin A1C% w Est Avg Glu 8.5 % (4.0-6.0)
[2024-03-31 13:20] LABS: Alanine Aminotransferase 14 IU/L (<50); Albumin 3.1 g/dL (3.5-5.0); Albumin Globulin Ratio 1.2 (1.0-2.8); Alkaline Phosphatase 118 U/L (38-126); Aspartate Aminotransferase 18 IU/L (17-59); BUN Creatinine Ratio 15.5 (6-22); Bilirubin Total 0.4 mg/dL (0.2-1.3); Blood Urea Nitrogen 18 mg/dL (9-20); C-Reactive Protein Quant < 0.5 mg/dL (<1.0); Calcium 9.5 mg/dL (8.4-10.2); Carbon Dioxide 28 mmol/L (22-32); Chloride 100 mmol/L (98-107); Estimated Glomerular Filt Rate > 60 mL/min (>60); Globulin 2.6 g/dL (1.7-4.1); Glucose 256 mg/dL (80-110); HEMOLYSIS < 15 (0-50); Potassium 5.1 mmol/L (3.4-5.1); Sodium 135 mmol/L (137-145); Total Protein 5.7 g/dL (6.3-8.2)
[2024-03-31 14:04] LABS: Erythrocyte Sedimentation Rate 15 MM/HR (0-15)
== END ==
PROVIDERS: PCP Internal Medicine; Referring Provider Surgery; Visit Provider Surgery
DX: E11.621 Type 2 diabetes mellitus with foot ulcer (principal); L97.312 Non-pressure chronic ulcer of right ankle with fat layer exposed; L97.412 Non-pressure chronic ulcer of right heel and midfoot with fat layer exposed
CPT/HCPCS: 36415; 73630; 73720; 80053; 83036; 85025; 85651; 86140; A9579

== ENCOUNTER → 2024-04-07 10:26 | Outpatient (CLI) | payer MEDICARE, MEDICAID, SELFPAY ==
[2023-02-27 21:28] VITALS: BMI 32.5
== END ==
PROVIDERS: PCP Internal Medicine; Referring Provider Internal Medicine; Visit Provider Surgery
DX: E11.621 Type 2 diabetes mellitus with foot ulcer (principal); E11.42 Type 2 diabetes mellitus with diabetic polyneuropathy; L97.412 Non-pressure chronic ulcer of right heel and midfoot with fat layer exposed; L97.312 Non-pressure chronic ulcer of right ankle with fat layer exposed; L97.512 Non-pressure chronic ulcer of other part of right foot with fat layer exposed; R60.0 Localized edema; L53.9 Erythematous condition, unspecified; I73.9 Peripheral vascular disease, unspecified
CPT/HCPCS: 99213

== ENCOUNTER → 2024-04-21 09:43 | Outpatient (CLI) | payer MEDICARE, MEDICAID, SELFPAY ==
[2023-02-27 21:28] VITALS: BMI 32.5
== END ==
PROVIDERS: PCP Internal Medicine; Referring Provider Family Medicine; Visit Provider Surgery
DX: E11.621 Type 2 diabetes mellitus with foot ulcer (principal); E11.42 Type 2 diabetes mellitus with diabetic polyneuropathy; L97.412 Non-pressure chronic ulcer of right heel and midfoot with fat layer exposed; L97.512 Non-pressure chronic ulcer of other part of right foot with fat layer exposed; L97.312 Non-pressure chronic ulcer of right ankle with fat layer exposed; L53.9 Erythematous condition, unspecified; R60.0 Localized edema; I73.9 Peripheral vascular disease, unspecified; Z99.3 Dependence on wheelchair; Z79.01 Long term (current) use of anticoagulants; Z79.82 Long term (current) use of aspirin
CPT/HCPCS: 99213

== ENCOUNTER → 2024-05-05 09:40 | Outpatient (CLI) | payer MEDICARE, MEDICAID, SELFPAY ==
[2023-02-27 21:28] VITALS: BMI 32.5
== END ==
PROVIDERS: PCP Internal Medicine; Referring Provider Internal Medicine; Visit Provider Surgery
DX: E11.621 Type 2 diabetes mellitus with foot ulcer (principal); L97.412 Non-pressure chronic ulcer of right heel and midfoot with fat layer exposed; L97.512 Non-pressure chronic ulcer of other part of right foot with fat layer exposed; E11.622 Type 2 diabetes mellitus with other skin ulcer; L97.312 Non-pressure chronic ulcer of right ankle with fat layer exposed; R23.4 Changes in skin texture; R60.0 Localized edema; E11.40 Type 2 diabetes mellitus with diabetic neuropathy, unspecified; E11.51 Type 2 diabetes mellitus with diabetic peripheral angiopathy without gangrene; I87.2 Venous insufficiency (chronic) (peripheral); I69.359 Hemiplegia and hemiparesis following cerebral infarction affecting unspecified side; I10 Essential (primary) hypertension; I25.10 Atherosclerotic heart disease of native coronary artery without angina pectoris; E66.9 Obesity, unspecified; Z68.27 Body mass index [BMI] 27.0-27.9, adult
CPT/HCPCS: 99213; 99214

== ENCOUNTER → 2024-06-01 11:14 | Outpatient (CLI) | payer MEDICARE, MEDICAID, SELFPAY ==
[2023-02-27 21:28] VITALS: BMI 32.5
== END ==
PROVIDERS: PCP Internal Medicine; Referring Provider Internal Medicine; Visit Provider Surgery
DX: E11.42 Type 2 diabetes mellitus with diabetic polyneuropathy (principal); E11.621 Type 2 diabetes mellitus with foot ulcer; L97.512 Non-pressure chronic ulcer of other part of right foot with fat layer exposed; L97.312 Non-pressure chronic ulcer of right ankle with fat layer exposed; L98.8 Other specified disorders of the skin and subcutaneous tissue; L53.9 Erythematous condition, unspecified; R60.0 Localized edema; I73.9 Peripheral vascular disease, unspecified
CPT/HCPCS: 97597; 99213

== ENCOUNTER → 2024-06-22 14:39 | Outpatient (CLI) | payer MEDICARE, MEDICAID, SELFPAY ==
[2023-02-27 21:28] VITALS: BMI 32.5
== END ==
PROVIDERS: PCP Internal Medicine; Referring Provider Internal Medicine; Visit Provider Surgery
DX: E11.621 Type 2 diabetes mellitus with foot ulcer (principal); L97.512 Non-pressure chronic ulcer of other part of right foot with fat layer exposed; E11.42 Type 2 diabetes mellitus with diabetic polyneuropathy; I73.9 Peripheral vascular disease, unspecified
CPT/HCPCS: 99212; 99213

== ENCOUNTER → 2024-07-20 10:22 | Outpatient (CLI) | payer MEDICARE, MEDICAID, SELFPAY ==
[2023-02-27 21:28] VITALS: BMI 32.5
== END ==
PROVIDERS: PCP Internal Medicine; Referring Provider Internal Medicine; Visit Provider Surgery
DX: E11.621 Type 2 diabetes mellitus with foot ulcer (principal); L97.512 Non-pressure chronic ulcer of other part of right foot with fat layer exposed; L08.9 Local infection of the skin and subcutaneous tissue, unspecified; E11.42 Type 2 diabetes mellitus with diabetic polyneuropathy; I87.2 Venous insufficiency (chronic) (peripheral); I73.9 Peripheral vascular disease, unspecified; I10 Essential (primary) hypertension; G82.20 Paraplegia, unspecified
CPT/HCPCS: 11042; 99213

== ENCOUNTER → 2024-08-03 11:37 | Outpatient (CLI) | payer MEDICARE, MEDICAID, SELFPAY ==
[2023-02-27 21:28] VITALS: BMI 32.5
--- NOTE | 2024-08-03 | OV.WND_ITS ---
PROGRESS NOTE DETAILS PATIENT NAME: SHELLIE GARCIA PATIENT NUMBER: [id number] CLINICIAN: AL BLACKWELL R.N. PATIENT DATE OF : 1945 PHYSICIAN / PBX OPERATOR: TRAY MCCLELLAND PATIENT SUBJECTIVE CHIEF COMPLAINT THIS INFORMATION WAS OBTAINED FROM THE PATIENT. WOUND IS STILL THERE. GENERAL NOTES DIABETIC ULCER OF RIGHT HALLUX. ALLERGIES CIPROFLOXACIN, DOXYCYCLINE, DOXYLAMINE, VANCOMYCIN, SULFA (SULFONAMIDE ANTIBIOTICS) HPI THIS INFORMATION WAS OBTAINED FROM THE PATIENT. THE FOLLOWING HPI ELEMENTS WERE DOCUMENTED FOR THE PATIENT'S WOUND: LOCATION: R GREAT TOE DURATION: 02/12/24 CONTEXT: DFU/ARTERIAL ASSOCIATED SIGNS AND SYMPTOMS: NONE THE PATIENT IS AN 78-YEAR-OLD MALE WITH HEMIPLEGIA AND HEMIPARESIS FROM PREVIOUS CVA, DIABETES, HYPERTENSION, CAD, VENOUS INSUFFICIENCY, AND OBESITY WHO RETURNS TODAY FOR FOLLOW UP OF ULCER RIGHT GREAT TOE. THE PATIENT CURRENTLY RESIDES AT ASSISTED LIVING. THE PATIENT IS RECEIVING DAILY DRESSING CHANGES WITH IODOFLEX AND USING A HEEL PROTECTOR FOR PRESSURE OFFLOADING. HE DENIES ANY PAIN NOR HAS HE NOTED ANY REDNESS OR DRAINAGE FROM THE RIGHT GREAT TOE. HE REPORTS A GOOD APPETITE AND DENIES HAVING ANY FEVER OR CHILLS. HE REPORTS POOR CONTROL OF HIS BLOOD SUGARS. THE PATIENT IS NONAMBULATORY AND USES A WHEELCHAIR FOR MOBILITY. THE PATIENT IS STILL ON PLAVIX AND ASPIRIN. MARGO'S INDICATE PAD. HE HAS MONOPHASIC DOPPLER FLOW IN THE RIGHT FOOT. ON EXAM TODAY THE ULCER RIGHT GREAT TOE IS MUCH IMPROVED, NO SIGN OF INFECTION. THE PATIENT WAS SEEN BY VASCULAR SURGERY AND WAS NOT FELT TO BE A CANDIDATE FOR ANY INTERVENTION. AN ABOVE-KNEE AMPUTATION WAS OFFERED BUT THE PATIENT DECLINED. HE IS NOT CURRENTLY ON ANY ANTIBIOTIC THERAPY. LABS 03/31/24: MRI SHOWED NO EVIDENCE FOR OSTEOMYELITIS, DORSAL SUBCUTANEOUS EDEMA 03/31/24: ELECTROLYTES UNREMARKABLE, GFR GREATER THAN 60, HEMOGLOBIN A1C 8.5, WBC 12.7, HEMOGLOBIN 15.4, ESR 15, CRP < 0.5 03/24/24: WBC 12.6, HEMOGLOBIN 15.0, HCT 46.1 03/16/24: WBC 12.9, HEMOGLOBIN 14.6, HCT 44.6, ESR 9, ELECTROLYTES UNREMARKABLE, GFR GREATER THAN 60, HEMOGLOBIN A1C 7.8, LFTS NORMAL, ALBUMIN 2.8, C-REACTIVE PROTEIN < 0.5 03/11/24: ARTERIAL DOPPLER SHOWED WIDE PATENCY FROM THE COMMON FEMORAL THROUGH THE SFA, EXTENSIVE SMALL VESSEL DISEASE WITH OCCLUSION OF THE POSTERIOR TIBIAL, TRICKLE FLOW IN THE ANTERIOR TIBIAL ARTERY 03/14/24: X-RAY SHOWED DEGENERATIVE CHANGES, NO OBVIOUS OSTEOMYELITIS SHELLIE GARCIA [id number] 1945 03/11/24: CULTURE NEGATIVE MEDICAL HISTORY THIS INFORMATION WAS OBTAINED FROM THE CHART, PATIENT. PATIENT HAS A MEDICAL HISTORY OF: HEMIPLEGIA AND HEMIPARESIS TYPE II DIABETES DIABETIC NEUROPATHY MORBID OBESITY HYPERLIPIDEMIA HYPERTENSION ATHEROSCLEROTIC HEART DISEASE OF [place] CORONARY ARTERY WITHOUT ANGINA PECTORIS HEART FAILURE, UNSPECIFIED APHASIA FOLLOWING UNSPECIFIED CEREBROVASCULAR DISEASE VENOUS INSUFFICIENCY CHRONIC VENOUS HYPERTENSION GASTRO ESOPH. REFLUX DISEASE (GERD) EDEMA INSOMNIA GASTRIC ULCERS CVA ADDITIONAL INFORMATION DOES PATIENT HAVE A HISTORY OF CANCER? YES? COMPLETE ALL QUESTIONS.: NO SURGICAL HISTORY THIS INFORMATION WAS OBTAINED FROM THE PATIENT. OBJECTIVE VITALS HEIGHT/LENGTH: 69 IN (175.26 CM), WEIGHT: 185.4 LBS (84.27 KGS), BMI: 27.4, TEMPERATURE: 97.6 ?F (36.44 ?C), PULSE: 79 BPM, RESPIRATORY RATE: 18 BREATHS/MIN, BLOOD PRESSURE: 160/94 MMHG, PULSE OXIMETRY: 96 %. PHYSICAL EXAM CONSTITUTIONAL: VITAL SIGNS REVIEWED AND NOTED. GENERALIZED WEAKNESS. IN NO APPARENT DISTRESS. RESPIRATORY: EVEN RESPIRATIONS WITHOUT USE OF ACCESSORY MUSCLES. NO INTERCOASTAL RETRACTIONS NOTED. EVEN AND NON LABORED RESPIRATION. INTEGUMENTARY (HAIR, SKIN): NO ERYTHEMA. NO SWELLING OR TENDERNESS. SEE WOUND ASSESSMENT. SKIN WARM AND DRY. NO RASHES. NEUROLOGICAL: DECREASED LOWER EXTREMITY SENSATION. PSYCHIATRIC: ORIENTATION TO TIME, PLACE AND PERSON: NORMAL AFFECT WITH NORMAL THOUGHT PATTERN. ADDITIONAL INFORMATION THE PATIENT'S POTENTIAL TO HEAL IS: FAIR. SHELLIE GARCIA [id number] 1945 WOUND ASSESSMENT(S) WOUND #2 RIGHT HALLUX IS A CHRONIC CHAVEZ GRADE 3 DIABETIC ULCER ACQUIRED ON 02/12/2024 AND HAS RECEIVED A STATUS OF NOT HEALED. INITIAL WOUND ENCOUNTER MEASUREMENTS ARE 1.4CM LENGTH X 0.9CM WIDTH X 0.1 CM DEPTH, WITH AN AREA OF 1.26 SQ CM AND A VOLUME OF 0.126 CUBIC CM.INITIAL WOUND ENCOUNTER PREVIOUS MEASUREMENTS FROM 07/20/2024 ARE 2.2CM LENGTH X 1.2CM WIDTH X 0.1CM DEPTH, WITH AN AREA OF 2.64 SQ CM AND A VOLUME OF 0.264 CUBIC CM. ADIPOSE IS EXPOSED. NO TUNNELING HAS BEEN NOTED. NO SINUS TRACT HAS BEEN NOTED. NO UNDERMINING HAS BEEN NOTED. THERE WAS NO DRAINAGE NOTED. THE PATIENT REPORTS A WOUND PAIN OF LEVEL 0/10. THE WOUND MARGIN IS UNABLE TO ASSESS WOUND BED HAS NO, GRANULATION, NO SLOUGH, YES ESCHAR, NO EPITHELIALIZATION. THE PERIWOUND SKIN TEXTURE IS NORMAL. THE PERIWOUND SKIN MOISTURE IS NORMAL. THE PERIWOUND SKIN COLOR IS NORMAL. THE TEMPERATURE OF THE PERIWOUND SKIN IS COOL. PERIWOUND SKIN DOES NOT EXHIBIT SIGNS OR SYMPTOMS OF INFECTION. LOCAL PULSE IS DOPPLER. ADDITIONAL INFORMATION OTHER DEVITALIZED TISSUE PRESENT: BIOFILM ASSESSMENT ACTIVE PROBLEMS ICD-10 (ENCOUNTER DIAGNOSIS) L97.512 - NON-PRESSURE CHRONIC ULCER OF OTHER PART OF RIGHT FOOT WITH FAT LAYER EXPOSED (ENCOUNTER DIAGNOSIS) E11.621 - TYPE 2 DIABETES MELLITUS WITH FOOT ULCER (ENCOUNTER DIAGNOSIS) E11.42 - TYPE 2 DIABETES MELLITUS WITH DIABETIC POLYNEUROPATHY (ENCOUNTER DIAGNOSIS) I73.9 - PERIPHERAL VASCULAR DISEASE, UNSPECIFIED GENERAL NOTES ULCER RIGHT GREAT TOE MUCH IMPROVED FOLLOWING FACTORS HAVE BEEN IDENTIFIED THAT MAY AFFECT WOUND HEALING: DEVITALIZED TISSUE BIOFILM INFECTION DIABETES NEUROPATHY PAD GOALS: REMOVE DEVITALIZED TISSUE REMOVE AND PREVENT BIOFILM IDENTIFY AND TREAT INFECTION REDUCE PRESSURE ASSESS ARTERIAL CIRCULATION WOUND CLOSURE PLAN: DEBRIDEMENT, CONTINUE DRESSING CHANGES WITH IODOSORB, CONTINUE PRESSURE OFFLOADING AND PROTEIN SUPPLEMENTATION, FOLLOW UP IN 2 WEEKS FOR A RECHECK. PROCEDURES WOUND #2 WOUND #2 (DIABETIC ULCER) IS LOCATED ON THE RIGHT HALLUX. A SKIN/SUBCUTANEOUS TISSUE LEVEL SURGICAL RADHASHELLIE [id number] 1945 DEBRIDEMENT WITH A TOTAL AREA DEBRIDED OF 1.26 SQ CM. WAS PERFORMED BY TRAY MCCLELLAND MD. SUBCUTANEOUS WAS REMOVED ALONG WITH DEVITALIZED TISSUE: BIOFILM, EXUDATE AND SLOUGH. THE FOLLOWING INSTRUMENT(S) WERE USED: CURETTE. PAIN CONTROL WAS ACHIEVED USING 4% LIDO. A TIME OUT WAS CONDUCTED PRIOR TO THE START OF THE PROCEDURE. A MINIMAL AMOUNT OF BLEEDING WAS CONTROLLED WITH PRESSURE. THE PROCEDURE WAS TOLERATED WELL WITH A PAIN LEVEL OF 0 THROUGHOUT AND A PAIN LEVEL OF 0 FOLLOWING THE PROCEDURE. POST DEBRIDEMENT MEASUREMENTS: 1.4CM LENGTH X 0.9CM WIDTH X 0.2CM DEPTH; WITH AN AREA OF 1.26 SQ CM AND A VOLUME OF 0.252 CUBIC CM. ADDITIONAL INFORMATION MUSCLE FASCIA OR BONE REMOVED AND SENT TO PATHOLOGY?: NO PLAN WOUND ORDERS: WOUND #2 RIGHT HALLUX HAND HYGIENE HAND HYGIENE - WASH HANDS BEFORE AND AFTER WOUND CARE. CALL THE WOUND CENTER AT [phone] IF YOU HAVE SIGNS OR SYMPTOMS OF INFECTION, FEVER CHILLS OR SHAKES, INCREASED DRAINAGE, INCREASED ODOR OR UNUSUAL REDNESS. AFTER WOUND CENTER HOURS PLEASE NOTIFY YOUR PCP OR GO TO THE EMERGENCY ROOM. CLEANSER CLEANSE WOUND WITH NORMAL SALINE MAY SHOWER, LEAVE WOUND DRESSING INTACT. COVER WOUND DRESSING WITH A WATERPROOF BARRIER. KEEP DRESSING DRY. NO BATHS PLEASE. DRESSING ORDERS APPLY DRESSING(S) AND SECURE WITH: - IODOSORB TO WOUND BED, COVER WITH OPTIFOAM (PINK SIDE OUT), ROLL GAUZE AND TAPE. DRESSING CHANGE FREQUENCY CHANGE DRESSING 3 TIMES PER WEEK. CHANGE DRESSING IF IT BECOMES SOILED OR WET. ADDITIONAL ORDERS: OFF-LOADING / PRESSURE RELIEF USE/WEAR WHEN IN BED: - HEEL PROTECTOR BOOTIES DIETARY FOLLOW A DIABETIC DIET. INCREASE THE PROTEIN IN YOUR DIET. HOME HEALTH ADMIT TO HOME HEALTH FOR SHELTER. - [facility] HOME HEALTH CARE: IF YOU HAVE ANY QUESTIONS OR CONCERNS PLEASE CONTACT THE WOUND CENTER. - [facility]: PLEASE SEE PATIENT THREE TIMES A WEEK FOR DRESSING CHANGES. FOLLOW-UP APPOINTMENTS RETURN APPOINTMENT 2 WEEKS SCRIBING ATTESTATION I ATTEST, THE NURSE, THAT I SCRIBED THESE ORDERS FOR THE WOUND CARE PROVIDER. PROVIDER REVIEW AND ATTESTATION: REVIEWED AND EVALUATED LABS. REVIEWED HOSPITAL RECORDS. DISCUSSED THE PLAN OF CARE @ BEDSIDE WITH - THE PATIENT PLACE PATIENT ON PALLIATIVE CARE DUE TO: - INOPERABLE PAD I AGREE AND ATTEST TO THE ABOVE INFORMATION PROVIDED FROM OTHER LICENSED PROFESSIONALS. PLAN OF CARE: 01. ENSURE/ESTABLISH OPTIMAL BLOOD FLOW : - COMPLETE LOWER EXTREMITY ASSESSMENT STATUS: CONTINUED DATE: 07/20/2024 - PERFORM NON-INVASIVE VASCULAR TESTING (I.E. MARGO) AND DOCUMENT FINDINGS. CONSIDER REPEATING WHEN WOUND HEALING <40% AFTER 30 DAYS OF WOUND CARE. SHLELIE GARCIA [id number] 1945 STATUS: CONTINUED DATE: 07/20/2024 - ORDER VASCULAR CONSULT FOR EVALUATION/TREATMENT AND/OR NON-INVASIVE VASCULAR TESTING. STATUS: CONTINUED DATE: 07/20/2024 02. ASSESS FOR/TREAT INFECTION : - EVALUATE FOR SIGNS AND SYMPTOMS OF INFECTION AND DOCUMENT FINDINGS. STATUS: CONTINUED DATE: 07/20/2024 - OBTAIN CULTURE AND SENSITIVITY (CANDS) OR TISSUE CULTURE WHEN INFECTION IS SUSPECTED. (NOTE:) CONSIDER REPEATING WHEN WOUND HEALING <40% AFTER 30 DAYS OF WOUND CARE. STATUS: CONTINUED DATE: 07/20/2024 03. DEBRIDE WEEKLY OR MORE OFTEN PRN : - EVALUATE PATIENT IN CENTER WEEKLY TO ASSESS WOUND BED AND MARGINS FOR NEED FOR DEBRIDEMENT. STATUS: CONTINUED DATE: 07/20/2024 04. OPTIMIZE GLUCOSE CONTROL AND NUTRITION : - ORDER/REVIEW PERTINENT LABS TO EVALUATE RENAL FUNCTION, GLUCOSE CONTROL, AND NUTRITIONAL STATUS. STATUS: CONTINUED DATE: 07/20/2024 05. OFFLOADING PLAN : - EVALUATE PLAN FOR OFFLOADING STATUS: CONTINUED DATE: 07/20/2024 06. OPTIMIZE HOST FACTORS: - ASSESS AND REVIEW PATIENT HISTORY FOR WOUND ETIOLOGY, CO-MORBID CONDITIONS, MEDICATION REGIME, AND SMOKING HISTORY. STATUS: CONTINUED DATE: 07/20/2024 07. DRESSING SELECTION : - EVALUATE FOR DRESSING-RELATED FACTORS, SUCH AVAILABILITY, WEAR TIME, ADAPTABILITY AND USE TO BETTER OPTIMIZE WOUND HEALING AND PATIENT COMPLIANCE. STATUS: CONTINUED DATE: 07/20/2024 08. ADVANCED MODALITIES : - EVALUATE FOR APPROPRIATENESS OF HYPERBARIC OXYGEN THERAPY. STATUS: CONTINUED DATE: 07/20/2024 - SET TREATMENT GOALS ACCORDING TO PATIENT AND/OR CAREGIVER?S ABILITY/ COMPLIANCE. STATUS: CONTINUED DATE: 07/20/2024 09. FALL PREVENTION : - COMPLETE FALL ASSESSMENT. STATUS: CONTINUED DATE: 07/20/2024 10. PAIN MANAGEMENT : - COMPLETE PAIN ASSESSMENT STATUS: CONTINUED DATE: 07/20/2024 11. MEASURABLE GOALS FOR WOUND HEALING AND/OR HYPERBARIC OXYGEN THERAPY : - DECREASE WOUND DIMENSIONS STATUS: CONTINUED DATE: 07/20/2024 - WOUND CLOSURE STATUS: CONTINUED DATE: 07/20/2024 12. DURATION/FREQUENCY OF WOUND CARE VISITS : - 1X WEEKLY FOR 30 DAYS STATUS: CONTINUED DATE: 07/20/2024 ELECTRONIC SIGNATURE(S) SIGNED BY: DATE: SHELLIE GARCIA [id number] 1945 TRAY MCCLELLAND MD 08/03/2024 16:24:30 (PT) ENTERED BY: TRAY MCCLELLAND MD ON 08/03/2024 13:08:54 (PT) SHELLIE GARCIA [id number] 1945
== END ==
PROVIDERS: PCP Internal Medicine; Referring Provider Internal Medicine; Visit Provider Surgery
DX: E11.621 Type 2 diabetes mellitus with foot ulcer (principal); L97.512 Non-pressure chronic ulcer of other part of right foot with fat layer exposed; I73.9 Peripheral vascular disease, unspecified; I87.2 Venous insufficiency (chronic) (peripheral); I10 Essential (primary) hypertension; E11.40 Type 2 diabetes mellitus with diabetic neuropathy, unspecified
CPT/HCPCS: 11042

== ENCOUNTER → 2024-08-18 12:07 | Outpatient (CLI) | payer MEDICARE, MEDICAID, SELFPAY ==
[2023-02-27 21:28] VITALS: BMI 32.5
== END ==
PROVIDERS: PCP Internal Medicine; Referring Provider Internal Medicine; Visit Provider Surgery
DX: L97.512 Non-pressure chronic ulcer of other part of right foot with fat layer exposed (principal); E11.621 Type 2 diabetes mellitus with foot ulcer; E11.42 Type 2 diabetes mellitus with diabetic polyneuropathy; I73.9 Peripheral vascular disease, unspecified
CPT/HCPCS: 11042; 99212; 99213

== ENCOUNTER → 2024-09-08 14:55 | Outpatient (CLI) | payer MEDICARE, MEDICAID, SELFPAY ==
[2023-02-27 21:28] VITALS: BMI 32.5
== END ==
PROVIDERS: PCP Internal Medicine; Referring Provider Internal Medicine; Visit Provider Surgery
DX: E11.621 Type 2 diabetes mellitus with foot ulcer (principal); L97.512 Non-pressure chronic ulcer of other part of right foot with fat layer exposed; E11.42 Type 2 diabetes mellitus with diabetic polyneuropathy; I73.9 Peripheral vascular disease, unspecified
CPT/HCPCS: 99213

== ENCOUNTER → 2024-09-22 15:52 | Outpatient (CLI) | payer MEDICARE, MEDICAID, SELFPAY ==
[2023-02-27 21:28] VITALS: BMI 32.5
== END ==
LOC: WC 15:53
PROVIDERS: PCP Internal Medicine; Referring Provider Internal Medicine; Visit Provider Surgery
DX: E11.621 Type 2 diabetes mellitus with foot ulcer (principal); E11.42 Type 2 diabetes mellitus with diabetic polyneuropathy; L97.512 Non-pressure chronic ulcer of other part of right foot with fat layer exposed; I73.9 Peripheral vascular disease, unspecified; E66.9 Obesity, unspecified; Z68.27 Body mass index [BMI] 27.0-27.9, adult
CPT/HCPCS: 99213

== ENCOUNTER → 2024-10-13 16:24 | Outpatient (CLI) | payer MEDICARE, MEDICAID, SELFPAY ==
[2023-02-27 21:28] VITALS: BMI 32.5
== END ==
PROVIDERS: PCP Internal Medicine; Referring Provider Internal Medicine; Visit Provider Surgery
DX: Z86.31 Personal history of diabetic foot ulcer (principal)
CPT/HCPCS: 99212; 99213

== ENCOUNTER 2024-12-02 23:26 | Emergency (ER) | payer MEDICARE, MEDICAID, SELFPAY ==
[2023-02-27 21:28] VITALS: BMI 32.5
[2024-12-02 23:29] VITALS: BP 187/104; PULSE 83; RESP 20; TEMP 37.1; O2SAT 92
--- NOTE | 2024-12-02 23:36 | PC.NURSE ---
BS done by Triage nurse Genny RN 445 on 12/02/24 @ 3028. Late entry
--- NOTE | 2024-12-03 01:54 | ED.GENADULT ---
HPI - General Adult General Chief complaint: Diabetic Problem Stated complaint: high blood sugar Time Seen by Provider: 12/03/24 01:01 Source: patient and EMS Mode of arrival: EMS History of Present Illness HPI narrative: Pleasant 79-year-old man with dementia who lives at assisted living sent to the ER because of high blood sugar apparently above 400 at the care facility. They gave 2 unknown amount doses of unknown type of its plan to the patient before sending him to the ER. The patient was completely asymptomatic according to EMS but he is unable to answer any question begins in a meaningful way. Related Data Home Medications ?Medication ?Instructions ?Recorded ?Confirmed aspirin 81 mg tablet,delayed 81 mg PO QDAY ##0 05/04/16 02/27/23 release bumetanide 1 mg tablet 1.5 mg PO BID ##0 05/04/16 02/27/23 clopidogrel 75 mg tablet 75 mg PO QDAY ##0 05/04/16 02/27/23 insulin aspart U-100 100 unit/mL See Rx Instructions .Route 05/04/16 02/27/23 subcutaneous cartridge (Novolog .COMPLEX ##0 PenFill U-100 Insulin aspart) magnesium hydroxide 2,400 mg/10 mL 30 ml PO DAILY PRN Constipation ##0 05/04/16 02/27/23 oral suspension (Milk Of Magnesia Concentrated) polyethylene glycol 3350 17 17 g PO DAILY ##0 05/04/16 02/27/23 gram/dose oral powder (Miralax) potassium chloride 8 mEq 40 meq PO DAILY ##0 05/04/16 02/27/23 tablet,extended release (Klor-Con) docusate sodium 100 mg tablet 100 mg PO DAILY 10/26/18 02/27/23 metformin 500 mg tablet 1,000 mg PO BID 10/26/18 02/27/23 oxycodone 5 mg tablet 5 mg Q6H PRN Pain (Scale Score 4-6) 10/26/18 02/27/23 lisinopril 2.5 mg tablet 2.5 mg PO DAILY 02/27/23 02/27/23 tamsulosin 0.4 mg capsule 0.4 mg PO BEDTIME 02/27/23 02/27/23 Previous Rx's ?Medication ?Instructions ?Recorded insulin glargine 100 unit/mL (3 40 unit (0.4 mL) SUBCUT BEDTIME 03/04/23 mL) subcutaneous pen (Lantus #10 mL Solostar U-100 Insulin) insulin lispro 100 unit/mL 5 unit (0.05 mL) SUBCUT AC #10 mL 03/04/23 subcutaneous solution (Humalog U-100 Insulin) metoprolol succinate 25 mg 12.5 mg (1/2 x 25 mg) PO DAILY #10 03/04/23 tablet,extended release 24 hr tabs pantoprazole 40 mg tablet,delayed 40 mg PO BID #60 tabs 03/04/23 release Allergies Allergy/AdvReac Type Severity Reaction Status Date / Time ciprofloxacin (From CIPRO) Allergy Unknown Verified 03/06/23 11:16 doxylamine (DOXYLAMINE) Allergy Unknown Verified 03/06/23 11:16 Sulfa (Sulfonamide Allergy Unknown Verified 03/06/23 11:16 Antibiotics) (SULFA (SULFONAMIDE ANTIBIOTICS)) vancomycin (From VANCOCIN) Allergy Unknown Verified 03/06/23 11:16 doxycycline Allergy Verified 03/06/23 11:16 Penicillins Allergy Verified 03/06/23 11:16 Patient History Medical History BPH (benign prostatic hyperplasia) CAD (coronary artery disease) HTN (hypertension) Diabetes type 2, uncontrolled Hemiparesis 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 Social History (System 03/06/23 @ 11:16 by Lina Schulz) household members: none alcohol intake: current alcohol intake frequency: holidays/special occasions only Alcohol type: beer and wine Exam Initial Vital Signs Initial Vital Signs: Vital Signs Temperature 98.7 F 12/02/24 23:29 Pulse Rate 83 12/02/24 23:29 Respiratory Rate 20 12/02/24 23:29 Blood Pressure 187/104 H 12/02/24 23:29 Pulse Oximetry 92 12/02/24 23:29 Oxygen Delivery Method Room Air 12/02/24 23:29 Const General: No acute distress, No in distress, ill appearing (chronically) and No lethargic Nutritional Appearance: obese Neck Neck: normal visual inspection Resp Effort & Inspection: normal respiratory effort Auscultation: clear to auscultation bilaterally Cardio Rate: regular rate Rhythm: regular rhythm Heart Sounds: S1 normal and S2 normal GI Palpation: soft and No tender Course Course Course Narrative: Blood sugar was rechecked at our facility and was only 253. He was not given any additional treatment or into facility. He was sent back to his care facility in stable condition with a blood sugar in an acceptable range less than 300. This will require follow up with his PCP immediately so his insulin doses can be adjusted by them. Please send the patient back to our facility for any further concerns. Vital Signs Vital signs: Vital Signs - 8 hr 12/02/24 23:29 Temperature 98.7 F Pulse Rate 83 Respiratory Rate 20 Blood Pressure 187/104 H Pulse Oximetry 92 Oxygen Delivery Method Room Air Medical Decision Making Differential Diagnosis Differential Diagnosis: hyperglycemia, DKA Discharge Plan Departure Patient Disposition: Home Clinical Impression: Acute hyperglycemia Instructions: DI for Diabetes Type 1 -- Adult Activity Restrictions/Additional Instructions: If there are any further concerns especially blood sugars above 350 then please send the patient back to the ER. Otherwise have the patient seen immediately by his primary care provider so as insulin dose can be appropriately adjusted. Please return the patient to the ER for any other concerns or complaints. Prescriptions: No Action insulin aspart U-100 [Novolog PenFill U-100 Insulin] 100 UNIT/1 ML cartridge See Rx Instructions .ROUTE .COMPLEX Qty: 0 Rx Instructions: see sliding scale aspirin 81 MG tablet,delayed release (DR/EC) 81 mg PO QDAY Qty: 0 polyethylene glycol 3350 [Miralax] 119 GM powder 17 g PO DAILY Qty: 0 clopidogrel 75 MG tablet 75 mg PO QDAY Qty: 0 potassium chloride [Klor-Con 8] 8 MEQ tablet extended release 40 meq PO DAILY Qty: 0 magnesium hydroxide [Milk Of Magnesia Concentrated] 2,400 MG/10 ML suspension 30 ml PO DAILY PRN (Reason: Constipation) Qty: 0 bumetanide 1 MG tablet 1.5 mg PO BID Qty: 0 metformin 500 mg Tablet 1,000 mg PO BID docusate sodium 100 mg Tablet 100 mg PO DAILY oxycodone 5 mg Tablet 5 mg Q6H PRN (Reason: Pain (Scale Score 4-6)) tamsulosin 0.4 mg Capsule 0.4 mg PO BEDTIME lisinopril 2.5 mg Tablet 2.5 mg PO DAILY Rx Instructions: HOLD SYS<100 , HR<90 metoprolol succinate 25 mg Tablet Extended Release 24 Hr 12.5 mg PO DAILY Qty: 10 0RF insulin lispro [Humalog U-100 Insulin] 100 unit/mL Solution 5 unit SUBCUT AC Qty: 10 0RF insulin glargine [Lantus Solostar U-100 Insulin] 100 unit/mL (3 mL) Insulin Pen 40 unit SUBCUT BEDTIME Qty: 10 0RF pantoprazole 40 mg tablet,delayed release (DR/EC) 40 mg PO BID Qty: 60 0RF Referrals: Flaquita Orantes MD [Primary Care Provider, Medical] - As soon as possible Stand Alone Forms: Patient Portal/API
[2024-12-03] MEDS: INSULIN REGULAR 100 UNIT/ML 3 ML VIAL 10 UNIT IV (02:42)
== END 2024-12-03 04:21 | disposition home or self-care (01) ==
PROVIDERS: Emergency Provider Emergency Medicine; PCP Internal Medicine
DX: E11.65 Type 2 diabetes mellitus with hyperglycemia (principal)
CPT/HCPCS: 82962; 96374; 99283; 99284

== ENCOUNTER 2025-01-30 07:49 | Emergency (ER) | payer MEDICARE, OTHER, MEDICAID, SELFPAY ==
[2023-02-27 21:28] VITALS: BMI 32.5
[2025-01-30] VITALS (13 sets, daily range): BP systolic 150–175; BP diastolic 84–98; PULSE 71–80; RESP 14–21; TEMP 36.6; O2SAT 94–100
--- NOTE | 2025-01-30 07:54 | DI.RAD.S_ITS ---
PROCEDURE: XR WRIST LT MIN 3V INDICATIONS: wrist pain TECHNIQUE: 3 views of the wrist were acquired. COMPARISON: None. FINDINGS AND IMPRESSION: Evaluation is limited by osteopenia. Moderate wrist degenerative changes, worst at the STT and 1st CMC joints. Subchondral lucencies are present, either degenerative geodes or sequelae of prior erosions. TFCC chondrocalcinosis. Mild widening of the SL interval, likely ligamentous injury. Vascular calcifications. If there is high concern for further derangement, consider MRI evaluation. Dictated by: Gerald Blackmon M.D. on 01/30/2025 at 8:30 Approved by: Gerald Blackmon M.D. on 01/30/2025 at 8:32
--- NOTE | 2025-01-30 07:54 | EKG_ITS ---
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
--- NOTE | 2025-01-30 07:54 | DI.RAD.S_ITS ---
PROCEDURE: XR CHEST 1V INDICATIONS: hand/arm pain TECHNIQUE: One view of the chest was acquired. COMPARISON: [facility], , XR CHEST 1V, 02/27/2023, 14:38. FINDINGS AND IMPRESSION: Low lung volumes. No dense airspace disease or pleural effusions on this single view study. Heart size is within normal limits. Unchanged mediastinal contours. Degenerative osseous findings. Dictated by: Gerald Blackmon M.D. on 01/30/2025 at 8:30 Approved by: Gerald Blackmon M.D. on 01/30/2025 at 8:30
--- NOTE | 2025-01-30 07:54 | ED.GENADULT ---
HPI - General Adult General Chief complaint: Neuro Symptoms/Deficit Stated complaint: L arm weakness x2days Time Seen by Provider: 01/30/25 07:53 History of Present Illness HPI narrative: Patient is a 79-year-old male past medical history of insulin-dependent diabetes type 2, hypertension, BPH, CVA with right-sided hemiplegia with baseline aphasia comes into the ED from care facility for evaluation of left hand/wrist pain. Patient is at his baseline, has a aphasia but is A&O x4. He states that he is having pain to his left hand/wrist. Denies any trauma or falls. He is not on any blood thinners. He denies any other symptoms at this time. Related Data Home Medications ?Medication ?Instructions ?Recorded ?Confirmed aspirin 81 mg tablet,delayed 81 mg PO QDAY ##0 05/04/16 02/27/23 release bumetanide 1 mg tablet 1.5 mg PO BID ##0 05/04/16 02/27/23 clopidogrel 75 mg tablet 75 mg PO QDAY ##0 05/04/16 02/27/23 insulin aspart U-100 100 unit/mL See Rx Instructions .Route 05/04/16 02/27/23 subcutaneous cartridge (Novolog .COMPLEX ##0 PenFill U-100 Insulin aspart) magnesium hydroxide 2,400 mg/10 mL 30 ml PO DAILY PRN Constipation ##0 05/04/16 02/27/23 oral suspension (Milk Of Magnesia Concentrated) polyethylene glycol 3350 17 17 g PO DAILY ##0 05/04/16 02/27/23 gram/dose oral powder (Miralax) potassium chloride 8 mEq 40 meq PO DAILY ##0 05/04/16 02/27/23 tablet,extended release (Klor-Con) docusate sodium 100 mg tablet 100 mg PO DAILY 10/26/18 02/27/23 metformin 500 mg tablet 1,000 mg PO BID 10/26/18 02/27/23 oxycodone 5 mg tablet 5 mg Q6H PRN Pain (Scale Score 4-6) 10/26/18 02/27/23 lisinopril 2.5 mg tablet 2.5 mg PO DAILY 02/27/23 02/27/23 tamsulosin 0.4 mg capsule 0.4 mg PO BEDTIME 02/27/23 02/27/23 Previous Rx's ?Medication ?Instructions ?Recorded insulin glargine 100 unit/mL (3 40 unit (0.4 mL) SUBCUT BEDTIME 03/04/23 mL) subcutaneous pen (Lantus #10 mL Solostar U-100 Insulin) insulin lispro 100 unit/mL 5 unit (0.05 mL) SUBCUT AC #10 mL 03/04/23 subcutaneous solution (Humalog U-100 Insulin) metoprolol succinate 25 mg 12.5 mg (1/2 x 25 mg) PO DAILY #10 03/04/23 tablet,extended release 24 hr tabs pantoprazole 40 mg tablet,delayed 40 mg PO BID #60 tabs 03/04/23 release Allergies Allergy/AdvReac Type Severity Reaction Status Date / Time ciprofloxacin (From CIPRO) Allergy Unknown Verified 01/30/25 07:55 doxylamine (DOXYLAMINE) Allergy Unknown Verified 01/30/25 07:55 Sulfa (Sulfonamide Allergy Unknown Verified 01/30/25 07:55 Antibiotics) (SULFA (SULFONAMIDE ANTIBIOTICS)) vancomycin (From VANCOCIN) Allergy Unknown Verified 01/30/25 07:55 doxycycline Allergy Verified 01/30/25 07:55 Penicillins Allergy Verified 01/30/25 07:55 Review of Systems Review of Systems Narrative: General: Denies fever, chills, weight loss HEENT: Denies headache, eye drainage, eye irritation, head trauma, sore throat, voice change Cardiovascular: Denies any chest pain, palpitations, tachycardia Respiratory: Denies any shortness of breath, cough, wheeze, stridor GI/: Denies any abdominal pain, nausea, vomiting, diarrhea, bright red blood per rectum, melanotic stools, urinary frequency, urinary retention, dysuria, hematuria MSK: Positive left wrist/hand pain Skin: Denies any rashes, lesions, discoloration Neuro: Denies any headache, lightheadedness, dizziness, fainting, weakness Psych: Denies SI/HI Patient History Medical History BPH (benign prostatic hyperplasia) CAD (coronary artery disease) HTN (hypertension) Diabetes type 2, uncontrolled Hemiparesis 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 Social History (System 03/06/23 @ 11:16 by Lina Schulz) household members: none alcohol intake: current alcohol intake frequency: holidays/special occasions only Alcohol type: beer and wine Exam Narrative Exam Narrative: General: Cooperative, well-developed, not in acute distress HEENT: Normocephalic, atraumatic, PERRLA, normal sclera, eyelids normal Neck: Active full range of motion, atraumatic Chest: Normal to inspection, negative crepitus, no overlying erythema ecchymosis Respiratory: Normal respiratory effort, not in acute respiratory distress, clear to auscultation bilaterally negative cough, wheeze, tachypnea, rhonchi, rales Cardiology: Regular rate rhythm negative gallop, murmur, rubs GI/: No tenderness to palpation, soft, non rigid, normal to inspection, exam deferred MSK: Patient with right-sided baseline hemiplegia, patient does have some tenderness to palpation of the left wrist, however neurovascularly intact otherwise Skin: No rashes or lesions noted Neuro: Alert awake oriented x3, patient with residual right-sided hemiplegia secondary to CVA, with baseline aphasia, he is at his baseline Psych: Cooperative, negative suicidal or homicidal ideations Initial Vital Signs Initial Vital Signs: Vital Signs Pulse Rate 79 01/30/25 07:52 Blood Pressure 150/89 H 01/30/25 07:52 Pulse Oximetry 94 01/30/25 07:52 Course Orders Ordered: ED Orders 01/30/25 07:54 XR chest 1V Stat XR wrist LT min 3V Stat EKG-12 Lead Stat 01/30/25 07:58 US periph venous up extrem lt Stat Complete Blood Count AUTO DIFF Stat Comprehensive Metabolic Panel Stat Lipase Stat MAG [Magnesium] Stat PTT Partial Thromboplastin Joaquin Stat Prothrombin Time INR Stat Troponin & CK Cardiac Panel Stat 01/30/25 08:13 CT head/brain wo con Stat Vital Signs Vital signs: Vital Signs - 8 hr 01/30/25 07:52 01/30/25 07:52 01/30/25 07:55 Temperature 97.8 F Pulse Rate 79 80 Respiratory Rate 18 Blood Pressure 150/89 H 150/89 H Pulse Oximetry 94 94 Oxygen Delivery Method Room Air 01/30/25 08:00 01/30/25 08:00 01/30/25 08:30 Temperature Pulse Rate 76 71 Respiratory Rate 14 14 Blood Pressure 152/86 H Pulse Oximetry 94 95 Oxygen Delivery Method 01/30/25 09:00 01/30/25 09:30 Temperature Pulse Rate 74 76 Respiratory Rate 19 19 Blood Pressure Pulse Oximetry 96 95 Oxygen Delivery Method Medical Decision Making Lab Data 01/30/25 07:58 01/30/25 07:58 Labs: Lab Results 01/30/25 Range/Units 07:58 WBC 14.6 H (4.5-11.0) X10^3/uL RBC 6.23 H (4.5-5.9) X10^6/uL Hgb 18.2 H (13.5-17.5) g/dL Hct 55.3 H (41-53) % MCV 88.8 (80-100) fL MCH 29.2 (26-34) PG MCHC 32.9 (30-36) % RDW 16.5 H (11.6-14.8) % Plt Count 352 (150-400) X10^3/uL Neut % (Auto) 61.2 (50-75) % Lymph % (Auto) 18.6 L (25-40) % [place] % (Auto) 18.1 H (3-14) % Eos % (Auto) 0.7 L (2-4) % Baso % (Auto) 1.4 (0-2) % Neut # (Auto) 8900 H (0711-8644) /uL Lymph # (Auto) 2700 (5261-4600) /uL [place] # (Auto) 2600 H (0-900) /uL Eos # (Auto) 100 (0-450) /uL Baso # (Auto) 200 H (0-100) /uL RBC Morphology Not Reportable Poikilocytosis 1+ H Macrocytosis 3+ H PT 14.6 H (9.4-12.5) SECONDS INR 1.3 (0.9-1.3) APTT 37 H (25.1-36.5) SECONDS Sodium 144 (137-145) mmol/L Potassium 3.4 (3.4-5.1) mmol/L Chloride 110 H (98-107) mmol/L Carbon Dioxide 25 (22-32) mmol/L BUN 19 (9-20) mg/dL Creatinine 0.68 (0.66-1.25) mg/dL Estimated GFR > 60 (>60) mL/min BUN/Creatinine Ratio 27.9 H (6-22) Glucose 76 (70-99) mg/dL Calcium 10.2 (8.4-10.2) mg/dL Magnesium 1.9 (1.6-2.3) mg/dL Total Bilirubin 1.3 (0.2-1.3) mg/dL AST 22 (17-59) IU/L ALT 13 (<50) IU/L Alkaline Phosphatase 146 H (38-126) U/L Total Creatine Kinase 191 H (55-170) U/L Troponin I < 0.012 (0.01-0.034) ng/mL Total Protein 7.2 (6.3-8.2) g/dL Albumin 3.5 (3.5-5.0) g/dL Globulin 3.7 (1.7-4.1) g/dL Albumin/Globulin Ratio 0.9 L (1.0-2.8) Lipase < 10 L (23-300) U/L ECG Data Interpretation: EKG interpreted ED physician sinus 74 beats per minute QTC 441, occasional PVC noted, nonspecific ST changes no STEMI MDM Narrative Medical decision making narrative: Patient is a 79-year-old male with a past medical history of hemiplegia to the right side secondary to CVA with aphasia, insulin-dependent diabetes, hypertension, BPH, brought in by EMS for evaluation of left-sided hand/wrist pain, states it has been ongoing persistent for over 24 hours. At time of evaluation patient is at his baseline, he has some tenderness to palpation/decreased active passive range of motion of his left wrist secondary to pain but otherwise neurovascularly intact. He denies any trauma or falls. He is not on any blood thinners. He is only complaining of left hand/wrist pain. He denies any other symptoms such as headache visual disturbance chest pain shortness of breath fever chills nausea vomiting abdominal pain or any other GI/ symptoms at this time. Patient's EKG performed here in the emergency department did not show any acute STEMI. Patient's chest x-ray without any acute cardiopulmonary abnormality. Patient's x-ray of the left wrist did not show any acute bony injury, does show some moderate degeneration with subchondral lucency he has with widening of the SL indicative of most likely ligamentous injury. Given this finding as well as my physical exam we will place patient in a Velcro splint for support and have him follow up with primary care and orthopedic surgery as needed for most likely strain/sprain of the left wrist. Patient's head CT without any acute intracranial abnormalities. Ultrasound performed here did not show any acute signs of DVT. She was given strict return precautions informed to follow up with primary care and orthopedic surgery as needed. Discharge Plan Departure Patient Disposition: Home Clinical Impression: Sprain and strain of left wrist Instructions: Wrist Sprain Activity Restrictions/Additional Instructions: Please follow up with the primary care and orthopedic surgery as needed Prescriptions: No Action insulin aspart U-100 [Novolog PenFill U-100 Insulin] 100 UNIT/1 ML cartridge See Rx Instructions .ROUTE .COMPLEX Qty: 0 Rx Instructions: see sliding scale aspirin 81 MG tablet,delayed release (DR/EC) 81 mg PO QDAY Qty: 0 polyethylene glycol 3350 [Miralax] 119 GM powder 17 g PO DAILY Qty: 0 clopidogrel 75 MG tablet 75 mg PO QDAY Qty: 0 potassium chloride [Klor-Con 8] 8 MEQ tablet extended release 40 meq PO DAILY Qty: 0 magnesium hydroxide [Milk Of Magnesia Concentrated] 2,400 MG/10 ML suspension 30 ml PO DAILY PRN (Reason: Constipation) Qty: 0 bumetanide 1 MG tablet 1.5 mg PO BID Qty: 0 metformin 500 mg Tablet 1,000 mg PO BID docusate sodium 100 mg Tablet 100 mg PO DAILY oxycodone 5 mg Tablet 5 mg Q6H PRN (Reason: Pain (Scale Score 4-6)) tamsulosin 0.4 mg Capsule 0.4 mg PO BEDTIME lisinopril 2.5 mg Tablet 2.5 mg PO DAILY Rx Instructions: HOLD SYS<100 , HR<90 metoprolol succinate 25 mg Tablet Extended Release 24 Hr 12.5 mg PO DAILY Qty: 10 0RF insulin lispro [Humalog U-100 Insulin] 100 unit/mL Solution 5 unit SUBCUT AC Qty: 10 0RF insulin glargine [Lantus Solostar U-100 Insulin] 100 unit/mL (3 mL) Insulin Pen 40 unit SUBCUT BEDTIME Qty: 10 0RF pantoprazole 40 mg tablet,delayed release (DR/EC) 40 mg PO BID Qty: 60 0RF Referrals: Flaquita Orantes MD [Primary Care Provider, Medical] Stand Alone Forms: Patient Portal/API
--- NOTE | 2025-01-30 07:58 | DI.US.S_ITS ---
PROCEDURE: US PERIPH VENOUS UP EXTREM LT INDICATIONS: left arm/wrist pain TECHNIQUE: Real-time imaging, as well as color and pulse Doppler interrogation, was performed of the upper extremity deep veins from the inferior neck to the antecubital fossa. COMPARISON: None. FINDINGS: The internal jugular vein, visualized portions of the subclavian vein, axillary, and brachial veins are free of intraluminal thrombus. Where physically possible, the veins are normally compressible. Color and pulse Doppler demonstrate normal intraluminal flow, with expected phasicity and pulsatility. Additional scanning of the cephalic and basilic veins of the superficial system demonstrates normal compressibility, without thrombus. IMPRESSION: No findings of upper extremity deep venous thrombosis can be seen. Dictated by: Kelin Munoz M.D. on 01/30/2025 at 8:37 Approved by: Kelin Munoz M.D. on 01/30/2025 at 8:37
[2025-01-30 08:07] LABS: Add Manual Diff / Slide Review NO; Hematocrit 55.3 % (41-53); Hemoglobin 18.2 g/dL (13.5-17.5); Lymphocytes Absolute Auto 2700 /uL (1100-4500); Mean Corpuscular HGB Conc 32.9 % (30-36); Mean Corpuscular Hemoglobin 29.2 PG (26-34); Mean Corpuscular Volume 88.8 fL (80-100); Platelet Count 352 X10^3/uL (150-400)
[2025-01-30 08:13] LABS: INR 1.3 (0.9-1.3); Prothrombin Time 14.6 SECONDS (9.4-12.5)
--- NOTE | 2025-01-30 08:13 | DI.CT.S_ITS ---
PROCEDURE: CT HEAD/BRAIN WO CON INDICATIONS: left hand,arm pain weakness TECHNIQUE: Noncontrast 4.5 mm thick angled axial sections acquired from the foramen magnum to the vertex, with coronal and sagittal reformats. For radiation dose reduction, the following was used: automated exposure control, adjustment of mA and/or kV according to patient size. COMPARISON: None. FINDINGS: Image quality: Diagnostic CSF spaces: Basal cisterns are patent. Lateral ventricles are symmetric. Volume: Vascular calcifications. Periventricular white matter disease is commonly seen with chronic microangiopathy. Volume loss is present. These findings are moderate to severe Brain: No intracranial hemorrhage. Camp-white differentiation is grossly maintained. Craniofacial structures: No significant paranasal sinus opacity. IMPRESSION: No acute intracranial abnormality. If there is high concern for parenchymal pathology, consider further evaluation with MRI. Dictated by: Gerald Blackmon M.D. on 01/30/2025 at 8:32 Approved by: Gerald Blackmon M.D. on 01/30/2025 at 8:34
[2025-01-30 08:15] LABS: PTT Partial Thromboplastin Tim 37 SECONDS (25.1-36.5)
[2025-01-30 08:16] LABS: Magnesium 1.9 mg/dL (1.6-2.3)
[2025-01-30 08:17] LABS: Alanine Aminotransferase 13 IU/L (<50); Albumin 3.5 g/dL (3.5-5.0); Albumin Globulin Ratio 0.9 (1.0-2.8); Alkaline Phosphatase 146 U/L (38-126); Blood Urea Nitrogen 19 mg/dL (9-20); Calcium 10.2 mg/dL (8.4-10.2); Carbon Dioxide 25 mmol/L (22-32); Chloride 110 mmol/L (98-107); Creatine Kinase 191 U/L (55-170); Estimated Glomerular Filt Rate > 60 mL/min (>60); Globulin 3.7 g/dL (1.7-4.1); Glucose 76 mg/dL (70-99); HEMOLYSIS < 15 (0-50); Lipase < 10 U/L (23-300); Potassium 3.4 mmol/L (3.4-5.1); Sodium 144 mmol/L (137-145); Total Protein 7.2 g/dL (6.3-8.2)
[2025-01-30 08:18] LABS: Macrocytosis 3+; Poikilocytosis 1+
[2025-01-30 08:29] LABS: Troponin I < 0.012 ng/mL (0.01-0.034)
--- NOTE | 2025-01-30 09:26 | PC.NURSE ---
Hx stroke, hx R-side deficits with weakness in all extremities, living @ [place] for past 20 yrs. Unable to feed himself @ baseline. Bed bound at baseline. Incontinent @ baseline. AOx4. GCS 15.
--- NOTE | 2025-01-30 09:32 | PC.NURSE ---
Swallow screen performed with orange juice and water due to patient being on thin liquid diet, per [place] facility. The Evolver swallow screen tool uses applesauce for swallow screen therefore Evolver tool could not be used for swallow screen questions. This note serves as the swallow screen. ED physician aware and in agreement.
--- NOTE | 2025-01-30 12:28 | PC.NURSE ---
Nurse to Nurse d/c verbal with Val @ [place]
== END 2025-01-30 12:26 | disposition home or self-care (01) ==
PROVIDERS: Emergency Provider Student in an Organized Health Care Education/Training Program; PCP Internal Medicine
DX: S63.502A Unspecified sprain of left wrist, initial encounter (principal); S66.912A Strain of unspecified muscle, fascia and tendon at wrist and hand level, left hand, initial encounter; E11.9 Type 2 diabetes mellitus without complications; I69.951 Hemiplegia and hemiparesis following unspecified cerebrovascular disease affecting right dominant side; I69.920 Aphasia following unspecified cerebrovascular disease
CPT/HCPCS: 36415; 70450; 71045; 73110; 80053; 82550; 83690; 83735; 84484; 85025; 85610; 85730; 93005; 93010; 93971; 99284

== ENCOUNTER → 2025-04-21 17:11 | Outpatient (ROUT) | payer MEDICARE, OTHER, MEDICAID, SELFPAY ==
[2023-02-27 21:28] VITALS: BMI 32.5
== END ==
LOC: LAB 17:11
PROVIDERS: Visit Provider Registered Nurse
DX: L30.9 Dermatitis, unspecified (principal)
CPT/HCPCS: 87070; 87075; 87077; 87147; 87205